=== PATIENT | female | born 1990 | race Two or more races ===

== ENCOUNTER 2016-06-03 16:02 | Inpatient (IN) | payer OTHER ==
[2016-06-03 16:55] VITALS: BMI 23.4
--- NOTE | 2016-06-03 17:40 | HP ---
COWS - Scale Resting Pulse: 1= [place] 81-100 Sweatin= Chills/Flushing Restless Observation: 3= Extraneous Movement Pupil Size: 0= Normal to Room Light Bone or Joint Aches: 2= Severe Diffuse Aches Runny Nose/ Eye Tearin= Runny Nose/Eyes GI Upset > 30mins: 2= Nausea/Diarrhea Tremor Observation: 2= Slight Tremor Visible Yawning Observation: 0= None Anxiety or Irritability: 2=Irritable/Anxious Goose Flesh Skin: 0=Smooth Skin COWS Score: 15 CIWA Score - CIWA Score Nausea/Vomitin-Mild Nausea/No Vomiting Muscle Tremors: 4-Moderate,w/Arms Extend Anxiety: 4-Mod. Anxious/Guarded Agitation: 4-Moderately Restless Paroxysmal Sweats: 1-Minimal Palms Moist Orientation: 1-Uncertain about Date Tacttile Disturbances: 0-None Auditory Disturbances: 0-None Visual Disturbances: 0-None Headache: 2-Mild CIWA-Ar Total Score: 17 Admission ROS [facility] - HPI Chief Complaint: withdrawal sx Allergies/Adverse Reactions: Allergies Allergy/AdvReac Type Severity Reaction Status Date / Time No Known Allergies Allergy Verified 06/03/16 17:02 History of Present Illness: 25 years old female with long history of alcohol heroin nicotine dependence, denies medical issue, has depression is admitted to detox patient discharged from [facility] 06/03/16, treated for alcohol intoxication, admitted to [facility] for alcohol and heroin detox, committed to rehab after detox Exam Limitations: No Limitations - Ebola screening Have you traveled outside of the country in the last 21 days: No (NN) Have you had contact with anyone from an Ebola affected area: No Have you been sick,other than usual withdrawal symptoms: No Do you have a fever: No - Review of Systems Constitutional: Chills, Loss of Appetite, Changes in sleep, Unintentional Wgt. Loss EENT: reports: No Symptoms Reported Respiratory: reports: No Symptoms reported Cardiac: reports: No Symptoms Reported GI: reports: Nausea, Poor Appetite, Poor Fluid Intake, Indigestion, Abdominal cramping : reports: No Symptoms Reported Musculoskeletal: reports: Back Pain, Joint Pain, Muscle Pain, Neck Pain Integumentary: reports: No Symptoms Reported Neuro: reports: Tremors Endocrine: reports: No Symptoms Reported Hematology: reports: No Symptoms Reported Psychiatric: reports: Judgement Intact, Anxious, Depressed Other Systems: Reviewed and Negative Patient History - Patient Medical History Hx Anemia: No Hx Asthma: No Hx Chronic Obstructive Pulmonary Disease (COPD): No Hx Cancer: No Hx Cardiac Disorders: No Hx Congestive Heart Failure: No Hx Hypertension: No Hx Hypercholesterolemia: No Hx Pacemaker: No HX Cerebrovascular Accident: No Hx Seizures: No Hx Diabetes: No Hx Gastrointestinal Disorders: No Hx Liver Disease: No Hx Genitourinary Disorders: No Hx Sexually Transmitted Disorders: No Hx Renal Disease (ESRD): No Hx Thyroid Disease: No Hx Human Immunodeficiency Virus (HIV): No Hx Hepatitis C: No Hx Depression: Yes Hx Suicide Attempt: Yes (07/2015 hang self) Hx Bipolar Disorder: No Hx Schizophrenia: No - Patient Surgical History Past Surgical History: Yes Hx Neurologic Surgery: No Hx Cataract Extraction: No Hx Cardiac Surgery: No Hx Lung Surgery: No Hx Breast Surgery: No Hx Breast Biopsy: No Hx Abdominal Surgery: No Hx Appendectomy: No Hx Cholecystectomy: No Hx Genitourinary Surgery: No Hx Section: No Hx Orthopedic Surgery: Yes (right femaur 2002) Hx Hysterectomy: No Anesthesia Reaction: No - PPD History Previous Implant?: Yes Documented Results: Negative w/o proof Implanted On Prior [facility] Admission?: No PPD to be Administered?: Yes - Reproductive History Patient is a Female of Child Bearing Age (11 -55 yrs old): Yes Last Menstrual Period: 05/25/16 Patient : No - Smoking Cessation Smoking history: Current every day smoker Have you smoked in the past 12 months: Yes Aproximately how many cigarettes per day: 10 Cigars Per Day: 0 Hx Chewing Tobacco Use: No Initiated information on smoking cessation: Yes 'Breaking Loose' booklet given: 06/03/16 - Substance & Tx. History Hx Alcohol Use: Yes Hx Substance Use: Yes Substance Use Type: Alcohol, Marijuana, Opiates Hx Substance Use Treatment: Yes - Substances Abused Alcohol Route: Oral Frequency: Daily Amount used: LIQUOR- 1 PINT, BEER- 1 SIX PACK Age of first use: 14 Date of Last Use: 06/03/16 Heroin Route: Inhalation Frequency: Daily Amount used: 7 BAGS Age of first use: 16 Date of Last Use: 06/01/16 Family Disease History - Family Disease History Family Disease History: Diabetes: Sister (pregancy) Admission Physical Exam [facility] - Vital Signs Vital Signs: Vital Signs - 24 hr 06/03/16 16:47 Temperature 98.0 F Pulse Rate 83 Respiratory 20 Rate Blood Pressure 129/73 - Physical General Appearance: Yes: Appropriately Dressed, Moderate Distress, Thin, Tremorous, Irritable, Sweating, Anxious HEENTM: Yes: Hearing grossly Normal, Normal ENT Inspection, Normocephalic, Normal Voice Respiratory: Yes: Chest Non-Tender, Lungs Clear, Normal Breath Sounds, No Respiratory Distress, No Accessory Muscle Use Neck: Yes: Supple, Trachea in good position Breast: Yes: Breasts Symetrical Cardiology: Yes: Regular Rhythm, Regular Rate, S1, S2 Abdominal: Yes: Normal Bowel Sounds, Non Tender, Soft Genitourinary: Yes: Within Normal Limits Back: Yes: Normal Inspection Musculoskeletal: Yes: full range of Motion, Gait Steady, Back pain, Muscle Pain Extremities: Yes: Normal Inspection, Normal Range of Motion, Non-Tender, Tremors Neurological: Yes: Alert, Motor Strength 5/5, Normal Response, Depressed Affect Integumentary: Yes: Warm Lymphatic: Yes: Within Normal Limits - Diagnostic (1) Alcohol dependence with uncomplicated withdrawal Current Visit: Yes Status: Acute (2) Opioid dependence with withdrawal Current Visit: Yes Status: Acute (3) Cannabis dependence, uncomplicated Current Visit: Yes Status: Chronic (4) Nicotine dependence Current Visit: Yes Status: Acute Qualifiers: Nicotine product type: cigarettes Substance use status: uncomplicated Qualified Code(s): F17.210 - Nicotine dependence, cigarettes, uncomplicated (5) Weight loss Current Visit: Yes Status: Acute (6) Vaginitis Current Visit: Yes Status: Acute Qualifiers: Chronicity: subacute Qualified Code(s): N76.1 - Subacute and chronic vaginitis Cleared for Admission [facility] - Detox or Rehab [facility] Level of Care: Medically Managed Detox Regimen/Protocol: Methadone/Librium [facility] Breath Alcohol Content Breath Alcohol Content: 0 Vital Signs - Vital Signs Vital Signs Refused: No Temperature: 98 F Temperature Source: Oral Pulse Rate: 83 Respiratory Rate: 20 Blood Pressure: 129/73 BP Location: Left Arm Blood Pressure Position: Sitting - Height Height: 5 ft 5 in - Weight Weight: 141 lb Weight Measurement Method: Standing Scale Body Mass Index (BMI): 23.4 - Bowel Function Bowel Movement: Yes Urine Pregancy Test - Result Urine Test Results: Negative- NO Line Present Urine Drug Screen - Control Is Test Valid: Yes - Results Drug Screen Negative: No Urine Drug Screen Results: THC-Marijuana, OPI-Opiates, PCP-Phencyclidine
[2016-06-03] MEDS ORDERED: MENTHOL/PHENOL 1 EACH UD MM PRN (18:05)
[2016-06-03] MEDS ORDERED: MAG HYDROX/AL HYDROX/SIMETH 30 ML UNIT-DOSE CUP PO PRN (18:05)
[2016-06-03] MEDS ORDERED: MAGNESIUM CITRATE 300 ML BOTTLE PO PRN (18:05)
[2016-06-03] MEDS ORDERED: chlordiazePOXIDE HCL 25 MG CAPSULE PO PRN (18:05)
[2016-06-03] MEDS ORDERED: LOPERAMIDE HCL 2 MG CAPSULE PO PRN (18:05)
[2016-06-03] MEDS ORDERED: guaiFENesin/D-METHORPHAN HB 10 ML UNIT-DOSE CUPS PO PRN (18:05)
[2016-06-03] MEDS ORDERED: P-EPHED 60MG/TRIPROLIDI 2.5MG TABLET PO PRN (18:05)
[2016-06-03] MEDS ORDERED: MAGNESIUM HYDROX 2400MG/30ML ORAL SUSPENSION 30 ML CUP PO PRN (18:05)
[2016-06-03] MEDS ORDERED: METHADONE HCL 10 MG TABLET (FOR DETOX USE ONLY) PO ONE ×2 (19:00→23:00)
[2016-06-03] MEDS: cloNIDine HCL 0.1 MG TABLET PO PRN (19:14)
[2016-06-03] MEDS: ACETAMINOPHEN 325 MG TABLET (FP) PO PRN (19:14)
[2016-06-03 21:15] LABS: URINE APPEARANCE CLEAR; URINE BILIRUBIN NEGATIVE (NEGATIVE); URINE BLOOD NEGATIVE (NEGATIVE); URINE COLOR AMBER; URINE GLUCOSE (UA) NEGATIVE (NEGATIVE); URINE KETONE 1+ (NEGATIVE); URINE LEUK ESTERASE NEGATIVE (NEGATIVE); URINE NITRITE NEGATIVE (NEGATIVE); URINE PROTEIN NEGATIVE (NEGATIVE); URINE UROBILINOGEN 4.0 E.U/dl E.U./dl (0.2-1.0)
[2016-06-03] MEDS: THIAMINE HCL 100 MG TABLET (FP) PO SCH (22:21)
[2016-06-03] MEDS: diphenhydrAMINE HCL 50 MG CAPSULE PO PRN (22:21)
[2016-06-03] MEDS: chlordiazePOXIDE HCL 25 MG CAPSULE PO SCH (22:21)
[2016-06-03] MEDS: metroNIDAZOLE 0.75% VAGINAL GEL 70 GM TUBE VG SCH (23:20)
[2016-06-04] MEDS: chlordiazePOXIDE HCL 25 MG CAPSULE PO SCH ×4 (05:24→22:31)
--- NOTE | 2016-06-04 09:23 | CONSULT ---
[facility] Psychiatric Consult - Data Date of interview: 06/04/16 Admission source: [facility] Identifying data: This is 25 years old female with psychiatric hospitalization history intoxicated with: Alcohol, Opioids, PCP, Cannbais and Nicotine Substance Abuse History: Smoking history: Current every day smoker. Have you smoked in the past 12 months: Yes. Aproximately how many cigarettes per day: 10. Cigars Per Day: 0. Hx Chewing Tobacco Use: No. Initiated information on smoking cessation: Yes. 'Breaking Loose' booklet given: 06/03/16. - Substance & Tx. History. Hx Alcohol Use: Yes. Hx Substance Use: Yes. Substance Use Type : Alcohol, Marijuana, Opiates. Hx Substance Use Treatment: Yes. - Substances Abused. Alcohol. Route: Oral. Frequency: Daily. Amount used: LIQUOR- 1 PINT, BEER- 1 SIX PACK. Age of first use: 14. Date of Last Use: 06/03/16. Heroin. Route: Inhalation. Frequency: Daily. Amount used: 7 BAGS. Age of first use: 16. Date of Last Use: 06/01/16 Medical History: Weight loss. Psychiatric History: Patient reports history of depression and anxiety, reports most recent psychiatric admission after OD at [facility] on 2016, reports has been under PCP Minfluence at that time. Patient reporots no medications taking prior to admission, denies no suicidal attempts since then. Physical/Sexual Abuse/Trauma History: Unclear Additional Comment: Observation. Detox Care Protocol Mental Status Exam - Mental Status Exam Alert and Oriented to: Person Cognitive Function: Fair Patient Appearance: Unkempt Mood: Sad Affect: Flat Patient Behavior: Sedated Speech Pattern: Delayed Voice Loudness: Mildly Soft/Quiet Thought Process: Circumstantial Thought Disorder: Being Controlled Hallucinations: Denies Suicidal Ideation: Denies Homicidal Ideation: Denies Insight/Judgement: Fair Sleep: Difficulty falling asleep Appetite: Weight loss Muscle strength/Tone: Mild Hypertonicity Gait/Station: Shuffling Additional Comments: Observation. Detox Care Protocol Psychiatric Findings - Problem List ([place] 1, 2,3) (1) Alcohol dependence with uncomplicated withdrawal Current Visit: Yes Status: Acute (2) Nicotine dependence Current Visit: Yes Status: Acute Qualifiers: Nicotine product type: cigarettes Substance use status: uncomplicated Qualified Code(s): F17.210 - Nicotine dependence, cigarettes, uncomplicated (3) Opioid dependence with withdrawal Current Visit: Yes Status: Acute (4) Cannabis dependence, uncomplicated Current Visit: Yes Status: Chronic (5) PCP abuse Current Visit: Yes Status: Acute (6) Drug-induced mood disorder Current Visit: Yes Status: Acute - Initial Treatment Plan Initial Treatment Plan: Observation. Detox Care Protocol
--- NOTE | 2016-06-04 09:33 | PN ---
[facility] CIWA - CIWA Score Nausea/Vomitin Muscle Tremors: 2 Anxiety: 3 Agitation: 3 Paroxysmal Sweats: 3 Orientation: 0-Oriented Tacttile Disturbances: 2-Mild Itch/Numbness/Burn Auditory Disturbances: 0-None Visual Disturbances: 0-None Headache: 1-Very Mild CIWA-Ar Total Score: 16 BHS COWS - Scale Resting Pulse: 0= [place] 80 or Below Sweatin= Chills/Flushing Restless Observation: 1= Difficult to Sit Still Pupil Size: 1= Pupils >than Normal Bone or Joint Aches: 2= Severe Diffuse Aches Runny Nose/ Eye Tearin= Nasal Congestion GI Upset > 30mins: 1= Stomach Cramp Tremor Observation of Outstretched Hands: 1= Tremor [place], Not Seen Yawning Observation: 0= None Anxiety or Irritability: 1=Feels Anxious/Irritable Goose Flesh Skin: 0=Smooth Skin COWS Score: 9 S Progress Note (SOAP) Subjective: interrupted sleep, sweats, shakes, anxious, h/o vaginitis Objective: 06/04/16 09:31 Vital Signs Temperature 97.9 F 06/04/16 06:08 Pulse Rate 55 L 06/04/16 06:08 Respiratory Rate 18 06/04/16 06:08 Blood Pressure 105/60 06/04/16 06:08 O2 Sat by Pulse Oximetry (%) Laboratory Tests 06/03/16 20:30 Urine Color Mora Urine Appearance Clear Urine pH 6.0 Ur Specific [place] 1.030 Urine Protein Negative Urine Glucose (UA) Negative Urine Ketones 1+ H Urine Blood Negative Urine Nitrite Negative Urine Bilirubin Negative Urine Urobilinogen 4.0 e.u/dl H Ur Leukocyte Esterase Negative pending labs Assessment: 06/04/16 09:32 withdrawl sx's vaginitis Plan: cont. detox increase fluids flagyl gel hs f/up pending labs
[2016-06-04] MEDS ORDERED: METHADONE HCL 10 MG TABLET (FOR DETOX USE ONLY) PO SCH (10:00)
[2016-06-04 10:24] LABS: MCH 32.2 pg (25.7-33.7); MCHC 33.9 g/dl (32.0-36.0); PLATELET COUNT 205 K/MM3 (134-434); RDW 13.8 % (11.6-15.6)
[2016-06-04 10:39] LABS: ALBUMIN 3.5 g/dl (3.4-5.0); ALK PHOS 69 U/L (45-117); ANION GAP 8 (8-16); CALCIUM 9.1 mg/dL (8.5-10.1); CO2 29 mmol/L (21-32); CREATININE 0.8 mg/dL (0.55-1.02); GLUCOSE,RANDOM 88 mg/dL (74-106); SGOT/AST 16 U/L (15-37); SGPT/ALT 31 U/L (12-78); TOT PROT 6.4 g/dl (6.4-8.2)
[2016-06-04] MEDS: PRENATAL VITAMINS W/ FOLIC ACID TABLET (FP) PO SCH (10:56)
[2016-06-04] MEDS: NICOTINE POLACRILEX 2 MG GUM BUC PRN ×2 (10:57→20:44)
[2016-06-04] MEDS: NICOTINE 14 MG/24 HOURS TOPICAL PATCH TD SCH (10:58)
[2016-06-04] MEDS: IBUPROFEN 400 MG TABLET (FP) PO PRN (12:28)
[2016-06-04 13:32] LABS: HIV 1 & 2 AB NEGATIVE; HIV 1 AGp24 NEGATIVE
[2016-06-04] MEDS: ACETAMINOPHEN 325 MG TABLET (FP) PO PRN (18:30)
[2016-06-04] MEDS: metroNIDAZOLE 0.75% VAGINAL GEL 70 GM TUBE VG SCH (22:31)
[2016-06-04] MEDS: diphenhydrAMINE HCL 50 MG CAPSULE PO PRN (22:31)
[2016-06-04] MEDS: THIAMINE HCL 100 MG TABLET (FP) PO SCH (22:32)
[2016-06-05] MEDS: chlordiazePOXIDE HCL 25 MG CAPSULE PO SCH ×3 (05:30→17:50)
[2016-06-05] MEDS: ACETAMINOPHEN 325 MG TABLET (FP) PO PRN (08:43)
[2016-06-05] MEDS: METHADONE HCL 5 MG TABLET (FOR DETOX USE ONLY) PO SCH (10:28)
[2016-06-05] MEDS: PRENATAL VITAMINS W/ FOLIC ACID TABLET (FP) PO SCH (10:28)
[2016-06-05] MEDS: NICOTINE 14 MG/24 HOURS TOPICAL PATCH TD SCH (10:30)
--- NOTE | 2016-06-05 10:59 | PN ---
[facility] CIWA - CIWA Score Nausea/Vomitin-No Nausea/No Vomiting Muscle Tremors: 4-Moderate,w/Arms Extend Anxiety: 3 Agitation: 4-Moderately Restless Paroxysmal Sweats: 3 Orientation: 0-Oriented Tacttile Disturbances: 0-None Auditory Disturbances: 0-None Visual Disturbances: 0-None Headache: 0-None Present CIWA-Ar Total Score: 14 S COWS - Scale Resting Pulse: 1= [place] 81-100 Sweatin=Flushed/Facial Moisture Restless Observation: 1= Difficult to Sit Still Pupil Size: 0= Normal to Room Light Bone or Joint Aches: 1= Mild Discomfort Runny Nose/ Eye Tearin= Nasal Congestion GI Upset > 30mins: 0= None Tremor Observation of Outstretched Hands: 2= Slight Tremor Visible Yawning Observation: 0= None Anxiety or Irritability: 2=Irritable/Anxious Goose Flesh Skin: 0=Smooth Skin COWS Score: 10 S Progress Note (SOAP) Subjective: restless legs sweats shakes interrupted sleep agitation Objective: 06/05/16 10:58 Vital Signs Temperature 98.2 F 06/05/16 10:42 Pulse Rate 97 H 06/05/16 10:42 Respiratory Rate 16 06/05/16 10:42 Blood Pressure 128/61 06/05/16 10:42 O2 Sat by Pulse Oximetry (%) Laboratory Tests 06/03/16 06/04/16 06/04/16 20:30 07:50 07:50 WBC RBC Hgb Hct MCV MCHC RDW Plt Count MPV Sodium 140 Potassium 3.6 Chloride 103 Carbon Dioxide 29 Anion Gap 8 BUN 11 Creatinine 0.8 Creat Clearance w eGFR > 60 Random Glucose 88 Calcium 9.1 Total Bilirubin 1.0 AST 16 ALT 31 Alkaline Phosphatase 69 Total Protein 6.4 Albumin 3.5 Urine Color Mora Urine Appearance Clear Urine pH 6.0 Ur Specific [place] 1.030 Urine Protein Negative Urine Glucose (UA) Negative Urine Ketones 1+ H Urine Blood Negative Urine Nitrite Negative Urine Bilirubin Negative Urine Urobilinogen 4.0 e.u/dl H Ur Leukocyte Esterase Negative RPR Titer HIV 1&2 Antibody Screen Negative HIV P24 Antigen Negative 06/04/16 06/04/16 07:50 08:00 WBC 7.0 RBC 4.21 Hgb 13.6 Hct 40.0 MCV 95.0 MCHC 33.9 RDW 13.8 Plt Count 205 MPV 10.0 Sodium Potassium Chloride Carbon Dioxide Anion Gap BUN Creatinine Creat Clearance w eGFR Random Glucose Calcium Total Bilirubin AST ALT Alkaline Phosphatase Total Protein Albumin Urine Color Urine Appearance Urine pH Ur Specific [place] Urine Protein Urine Glucose (UA) Urine Ketones Urine Blood Urine Nitrite Urine Bilirubin Urine Urobilinogen Ur Leukocyte Esterase RPR Titer Nonreactive HIV 1&2 Antibody Screen HIV P24 Antigen awake/alert ambulating no acute distress Assessment: 06/05/16 10:58 withdrawal sx Plan: continue detox increase fluids flexiril 10mg prn
[2016-06-05] MEDS: CYCLOBENZAPRINE HCL 10 MG TABLET (FP) PO PRN ×2 (13:27→22:18)
[2016-06-05] MEDS: NICOTINE POLACRILEX 2 MG GUM BUC PRN (13:27)
[2016-06-05] MEDS: diphenhydrAMINE HCL 50 MG CAPSULE PO PRN (22:18)
[2016-06-05] MEDS: chlordiazePOXIDE 5 MG CAPSULE PO SCH (22:18)
[2016-06-05] MEDS: metroNIDAZOLE 0.75% VAGINAL GEL 70 GM TUBE VG SCH (22:19)
[2016-06-05] MEDS: THIAMINE HCL 100 MG TABLET (FP) PO SCH (22:19)
[2016-06-06] MEDS: chlordiazePOXIDE 5 MG CAPSULE PO SCH ×3 (05:49→16:48)
[2016-06-06] MEDS: PRENATAL VITAMINS W/ FOLIC ACID TABLET (FP) PO SCH (10:02)
[2016-06-06] MEDS: NICOTINE 14 MG/24 HOURS TOPICAL PATCH TD SCH (10:02)
[2016-06-06] MEDS: METHADONE HCL 5 MG TABLET (FOR DETOX USE ONLY) PO SCH (10:02)
[2016-06-06] MEDS: IBUPROFEN 400 MG TABLET (FP) PO PRN (10:03)
[2016-06-06] MEDS: NICOTINE POLACRILEX 2 MG GUM BUC PRN ×2 (10:06→12:54)
--- NOTE | 2016-06-06 11:12 | PN ---
[facility] Progress Note (SOAP) Subjective: feeling better some interrupted sleep Objective: 06/06/16 11:10 Vital Signs Temperature 98.2 F 06/06/16 10:10 Pulse Rate 113 H 06/06/16 10:10 Respiratory Rate 18 06/06/16 10:10 Blood Pressure 116/74 06/06/16 10:10 O2 Sat by Pulse Oximetry (%) Laboratory Tests 06/03/16 06/04/16 06/04/16 20:30 07:50 07:50 WBC RBC Hgb Hct MCV MCHC RDW Plt Count MPV Sodium 140 Potassium 3.6 Chloride 103 Carbon Dioxide 29 Anion Gap 8 BUN 11 Creatinine 0.8 Creat Clearance w eGFR > 60 Random Glucose 88 Calcium 9.1 Total Bilirubin 1.0 AST 16 ALT 31 Alkaline Phosphatase 69 Total Protein 6.4 Albumin 3.5 Urine Color Mora Urine Appearance Clear Urine pH 6.0 Ur Specific [place] 1.030 Urine Protein Negative Urine Glucose (UA) Negative Urine Ketones 1+ H Urine Blood Negative Urine Nitrite Negative Urine Bilirubin Negative Urine Urobilinogen 4.0 e.u/dl H Ur Leukocyte Esterase Negative RPR Titer HIV 1&2 Antibody Screen Negative HIV P24 Antigen Negative 06/04/16 06/04/16 07:50 08:00 WBC 7.0 RBC 4.21 Hgb 13.6 Hct 40.0 MCV 95.0 MCHC 33.9 RDW 13.8 Plt Count 205 MPV 10.0 Sodium Potassium Chloride Carbon Dioxide Anion Gap BUN Creatinine Creat Clearance w eGFR Random Glucose Calcium Total Bilirubin AST ALT Alkaline Phosphatase Total Protein Albumin Urine Color Urine Appearance Urine pH Ur Specific [place] Urine Protein Urine Glucose (UA) Urine Ketones Urine Blood Urine Nitrite Urine Bilirubin Urine Urobilinogen Ur Leukocyte Esterase RPR Titer Nonreactive HIV 1&2 Antibody Screen HIV P24 Antigen pt aox3 in nad ambulating Assessment: 06/06/16 11:11 withdrawl sx's Plan: cont. detox increase fluids
[2016-06-06] MEDS: CYCLOBENZAPRINE HCL 10 MG TABLET (FP) PO PRN ×2 (12:54→22:35)
[2016-06-06] MEDS: diphenhydrAMINE HCL 50 MG CAPSULE PO PRN (22:35)
[2016-06-06] MEDS: cloNIDine HCL 0.1 MG TABLET PO PRN (22:35)
[2016-06-06] MEDS: THIAMINE HCL 100 MG TABLET (FP) PO SCH (22:35)
[2016-06-06] MEDS: chlordiazePOXIDE HCL 10 MG CAPSULE PO SCH (22:35)
[2016-06-06] MEDS: metroNIDAZOLE 0.75% VAGINAL GEL 70 GM TUBE VG SCH (22:39)
[2016-06-07] MEDS: chlordiazePOXIDE HCL 10 MG CAPSULE PO SCH ×3 (05:26→17:25)
[2016-06-07] MEDS: CYCLOBENZAPRINE HCL 10 MG TABLET (FP) PO PRN ×3 (05:28→22:30)
--- NOTE | 2016-06-07 08:54 | PN ---
S Progress Note (SOAP) Subjective: alert,irritable,anxious,interrupted sleep Objective: 06/07/16 08:53 Vital Signs Temperature 97.7 F 06/07/16 06:00 Pulse Rate 70 06/07/16 06:00 Respiratory Rate 18 06/07/16 06:00 Blood Pressure 106/58 06/07/16 06:00 O2 Sat by Pulse Oximetry (%) Assessment: 06/07/16 08:53 withdrawal symptom Plan: continue detox,discharge in am to rehab
[2016-06-07] MEDS ORDERED: METHADONE HCL 10 MG TABLET (FOR DETOX USE ONLY) PO SCH (10:00)
[2016-06-07] MEDS: NICOTINE 14 MG/24 HOURS TOPICAL PATCH TD SCH (11:09)
[2016-06-07] MEDS: PRENATAL VITAMINS W/ FOLIC ACID TABLET (FP) PO SCH (11:10)
[2016-06-07] MEDS: NICOTINE POLACRILEX 2 MG GUM BUC PRN (11:17)
[2016-06-07] MEDS: diphenhydrAMINE HCL 50 MG CAPSULE PO PRN (22:29)
[2016-06-07] MEDS: THIAMINE HCL 100 MG TABLET (FP) PO SCH (22:30)
[2016-06-07] MEDS: metroNIDAZOLE 0.75% VAGINAL GEL 70 GM TUBE VG SCH (22:30)
[2016-06-08] MEDS: CYCLOBENZAPRINE HCL 10 MG TABLET (FP) PO PRN (05:49)
[2016-06-08] MEDS ORDERED: METHADONE HCL 5 MG TABLET (FOR DETOX USE ONLY) PO SCH (06:00)
[2016-06-08] MEDS: NICOTINE 14 MG/24 HOURS TOPICAL PATCH TD SCH (10:19)
[2016-06-08] MEDS: PRENATAL VITAMINS W/ FOLIC ACID TABLET (FP) PO SCH (10:19)
[2016-06-08] MEDS: NICOTINE POLACRILEX 2 MG GUM BUC PRN (10:22)
[2016-06-08 10:31] VITALS: BP 124/62; PULSE 104; TEMP 97.5
--- NOTE | 2016-06-08 11:17 | DS ---
[facility] Detox Discharge Summary Admission Date: 06/03/16 Discharge Date: 06/08/16 - History Present History: Alcohol Dependence, Cannabis Dependence, Opioid Dependence, Pcp Dependence Pertinent Past History: DENIES - Physical Exam Results Vital Signs: Vital Signs Temperature 97.5 F L 06/08/16 10:00 Pulse Rate 104 H 06/08/16 10:00 Respiratory Rate 18 06/08/16 10:00 Blood Pressure 124/62 06/08/16 10:00 O2 Sat by Pulse Oximetry (%) Pertinent Admission Physical Exam Findings: WITHDRAWAL SX. Laboratory Last Values WBC 7.0 K/mm3 (4.0-10.0) 06/04/16 08:00 RBC 4.21 M/mm3 (3.60-5.2) 06/04/16 08:00 Hgb 13.6 GM/dL (10.7-15.3) 06/04/16 08:00 Hct 40.0 % (32.4-45.2) 06/04/16 08:00 MCV 95.0 fl (80-96) 06/04/16 08:00 MCHC 33.9 g/dl (32.0-36.0) 06/04/16 08:00 RDW 13.8 % (11.6-15.6) 06/04/16 08:00 Plt Count 205 K/MM3 (134-434) 06/04/16 08:00 MPV 10.0 fl (7.5-11.1) 06/04/16 08:00 Sodium 140 mmol/L (136-145) 06/04/16 07:50 Potassium 3.6 mmol/L (3.5-5.1) 06/04/16 07:50 Chloride 103 mmol/L (98-107) 06/04/16 07:50 Carbon Dioxide 29 mmol/L (21-32) 06/04/16 07:50 Anion Gap 8 (8-16) 06/04/16 07:50 BUN 11 mg/dL (7-18) 06/04/16 07:50 Creatinine 0.8 mg/dL (0.55-1.02) 06/04/16 07:50 Creat Clearance w eGFR > 60 (>60) 06/04/16 07:50 Random Glucose 88 mg/dL (74-106) 06/04/16 07:50 Calcium 9.1 mg/dL (8.5-10.1) 06/04/16 07:50 Total Bilirubin 1.0 mg/dL (0.2-1.0) 06/04/16 07:50 AST 16 U/L (15-37) 06/04/16 07:50 ALT 31 U/L (12-78) 06/04/16 07:50 Alkaline Phosphatase 69 U/L (45-117) 06/04/16 07:50 Total Protein 6.4 g/dl (6.4-8.2) 06/04/16 07:50 Albumin 3.5 g/dl (3.4-5.0) 06/04/16 07:50 Urine Color Mora 06/03/16 20:30 Urine Appearance Clear 06/03/16 20:30 Urine pH 6.0 (5.0-8.0) 06/03/16 20:30 Ur Specific [place] 1.030 (1.001-1.035) 06/03/16 20:30 Urine Protein Negative (NEGATIVE) 06/03/16 20:30 Urine Glucose (UA) Negative (NEGATIVE) 06/03/16 20:30 Urine Ketones 1+ (NEGATIVE) H 06/03/16 20:30 Urine Blood Negative (NEGATIVE) 06/03/16 20:30 Urine Nitrite Negative (NEGATIVE) 06/03/16 20:30 Urine Bilirubin Negative (NEGATIVE) 06/03/16 20:30 Urine Urobilinogen 4.0 e.u/dl E.U./dl (0.2-1.0) H 06/03/16 20:30 Ur Leukocyte Esterase Negative (NEGATIVE) 06/03/16 20:30 RPR Titer Nonreactive (NONREACTIVE) 06/04/16 07:50 HIV 1&2 Antibody Screen Negative 06/04/16 07:50 HIV P24 Antigen Negative 06/04/16 07:50 LABS NOTED - Treatment Hospital Course: Detox Protocol Followed, Detoxed Safely, Responded well, Discharged Condition Good, Rehab Referral Accepted - Medication Discharge Medications: Ambulatory Orders NK [No Known Home Medication] 06/03/16 - Diagnosis (1) Alcohol dependence with uncomplicated withdrawal Current Visit: Yes Status: Acute (2) Drug-induced mood disorder Current Visit: Yes Status: Acute (3) Nicotine dependence Current Visit: Yes Status: Acute Qualifiers: Nicotine product type: cigarettes Substance use status: uncomplicated Qualified Code(s): F17.210 - Nicotine dependence, cigarettes, uncomplicated (4) Opioid dependence with withdrawal Current Visit: Yes Status: Acute (5) PCP abuse Current Visit: Yes Status: Acute (6) Cannabis dependence, uncomplicated Current Visit: Yes Status: Chronic - AMA Did Patient Leave Against Medical Advice: No
== END 2016-06-08 12:35 | disposition other institution (70) | DRG 773 ==
LOC: YASAS 16:02 → Y6N 18:29
PROVIDERS: ADMIT Internal Medicine Addiction Medicine; ATTEND Internal Medicine Addiction Medicine
PROC: HZ2ZZZZ Detoxification Services for Substance Abuse Treatment (ICD-10-PCS; principal; 2016-06-03)
DX: F11.23 Opioid dependence with withdrawal (principal); F10.230 Alcohol dependence with withdrawal, uncomplicated; F12.20 Cannabis dependence, uncomplicated; F16.10 Hallucinogen abuse, uncomplicated; F17.210 Nicotine dependence, cigarettes, uncomplicated; F19.24 Other psychoactive substance dependence with psychoactive substance-induced mood disorder; N76.1 Subacute and chronic vaginitis; Z87.898 Personal history of other specified conditions; Z91.5 Personal history of self-harm
CPT/HCPCS: 36415; 80053; 81003; 85027; 86593; 87389; 93005; 93010

== ENCOUNTER 2016-06-08 12:33 | Inpatient (IN) | payer OTHER ==
[2016-06-08 14:39] VITALS: BMI 26.2
[2016-06-08] MEDS ORDERED: LOPERAMIDE HCL 2 MG CAPSULE PO PRN (15:50)
[2016-06-08] MEDS ORDERED: guaiFENesin/D-METHORPHAN HB 10 ML UNIT-DOSE CUPS PO PRN (15:50)
[2016-06-08] MEDS ORDERED: MAGNESIUM CITRATE 300 ML BOTTLE PO PRN (15:50)
[2016-06-08] MEDS ORDERED: MAG HYDROX/AL HYDROX/SIMETH 30 ML UNIT-DOSE CUP PO PRN (15:50)
[2016-06-08] MEDS ORDERED: MENTHOL/PHENOL 1 EACH UD MM PRN (15:50)
[2016-06-08] MEDS ORDERED: MAGNESIUM HYDROX 2400MG/30ML ORAL SUSPENSION 30 ML CUP PO PRN (15:50)
--- NOTE | 2016-06-08 15:50 | HP ---
[facility] Rehab Assess/Revision - Admission History Admitted to Rehab from: [facility] Date of Admission to Rehab: 06/08/16 - Vital signs Vital Signs: Vital Signs Period Temp Pulse Resp BP Sys/Ramos Pulse Ox Last 24 Hr 98.5 F-98.5 F 100-100 16-16 116-116/71-71 - Findings Detox History & Physical reviewed: Yes Concur with findings: Yes
[2016-06-08] MEDS: THIAMINE HCL 100 MG TABLET (FP) PO SCH (21:41)
[2016-06-08] MEDS: diphenhydrAMINE HCL 50 MG CAPSULE PO PRN (21:41)
[2016-06-08] MEDS: metroNIDAZOLE 0.75% VAGINAL GEL 70 GM TUBE VG SCH (21:42)
[2016-06-09] MEDS: PRENATAL VITAMINS W/ FOLIC ACID TABLET (FP) PO SCH (10:41)
[2016-06-09] MEDS: NICOTINE 21 MG/24 HOURS TOPICAL PATCH TD SCH (10:42)
[2016-06-09] MEDS: metroNIDAZOLE 0.75% VAGINAL GEL 70 GM TUBE VG SCH (21:48)
[2016-06-09] MEDS: THIAMINE HCL 100 MG TABLET (FP) PO SCH (21:48)
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
[2016-06-10] MEDS: PRENATAL VITAMINS W/ FOLIC ACID TABLET (FP) PO SCH (11:07)
[2016-06-10] MEDS: NICOTINE 21 MG/24 HOURS TOPICAL PATCH TD SCH (11:08)
[2016-06-10] MEDS ORDERED: NICOTINE 14 MG/24 HOURS TOPICAL PATCH TD ONE (11:45)
[2016-06-10] MEDS: THIAMINE HCL 100 MG TABLET (FP) PO SCH (21:44)
[2016-06-10] MEDS: diphenhydrAMINE HCL 50 MG CAPSULE PO PRN (21:44)
--- NOTE | 2016-06-11 10:00 | PN ---
Psychiatric Progress Note Vital Signs: Vital Signs Period Temp Pulse Resp BP Sys/Ramos Pulse Ox Last 24 Hr 97.6 F 82 18-18 119/79 Date of Session: 06/11/16 Chief Complaint:: Panda very nervious. HPI: Patient addressed PCP,Cocaine dependence comorbid with Substance induced mood disorder. Current Medications: Active Medications Generic Name Dose Route Start Last Admin Trade Name Freq PRN Reason Stop Dose Admin Acetaminophen 650 mg 06/08/16 15:50 Tylenol - PO Q4H PRN FEVER OR PAIN Al Hydroxide/Mg Hydroxide 30 ml 06/08/16 15:50 Mylanta Oral Suspension - PO Q6H PRN DYSPEPSIA Diphenhydramine HCl 50 mg 06/08/16 15:50 06/10/16 21:44 Benadryl - PO 50 mg HSMR1 PRN Administration FOR ITCHING Eucalyptus/Menthol/Phenol/Sorbitol 1 each 06/08/16 15:50 Cepastat Lozenge - MM Q4H PRN SORE THROAT Guaifenesin 10 ml 06/08/16 15:50 Robitussin Dm - PO Q6H PRN COUGH Hydroxyzine Pamoate 50 mg 06/11/16 09:48 Vistaril - PO Q4H PRN ANXIETY Ibuprofen 400 mg 06/08/16 15:50 Motrin - PO Q6H PRN PAIN Loperamide HCl 4 mg 06/08/16 15:50 Imodium - PO Q6H PRN DIARRHEA Magnesium Hydroxide 30 ml 06/08/16 15:50 Milk Of Magnesia - PO DAILY PRN CONSTIPATION Nicotine 14 mg 06/10/16 11:24 Nicoderm Patch - TD DAILY ISABEL Nicotine Polacrilex 2 mg 06/08/16 15:50 Nicorette Gum - BUC Q2H PRN NICOTINE REPLACEMENT RX Multivit/Folic Acid/Iron 1 tab 06/09/16 10:00 06/10/16 11:07 Vitamins (Sjr) - PO 1 tab DAILY ISABEL Administration Pseudoephedrine/Triprolidine 1 combo 06/08/16 15:50 Actifed - PO TID PRN NASAL CONGESTION Thiamine HCl 100 mg 06/08/16 22:00 06/10/16 21:44 Vitamin B1 - PO 100 mg HS ISABEL Administration Current Side Effect: No Lab tests ordered: No Lab tests reviewed: Yes Provider note:: Patient was evaluated today due to ongoing sleeping problems, anxiety.Chart has been revuewed ,medications has been discussed as well as treatment plan.Properties of Vistaril has been discussed with the patient including side effects,benefits and dose adjustment.Supportive therapy has been provided. Vistaril 50 mg po g 4 hrs PRN for anxiety ordered. Total face to face time:: 30 Mental Status Exam - Mental Status Exam Alert and Oriented to: Time, Place, Person Cognitive Function: Grossly Intact Patient Appearance: Well Groomed Mood: Anxious Affect: Labile Patient Behavior: Cooperative Speech Pattern: Clear Voice Loudness: Normal Thought Process: Goal Oriented Thought Disorder: Not Present Hallucinations: Denies Suicidal Ideation: Denies Homicidal Ideation: Denies Insight/Judgement: Fair Sleep: Fair Appetite: Good Muscle strength/Tone: Normal Gait/Station: Normal Psychiatric Treatment Plan - Problem List (1) Cocaine abuse Current Visit: Yes (2) Opioid dependence Current Visit: Yes (3) Phencyclidine dependence Current Visit: Yes (4) Substance induced mood disorder Current Visit: Yes (5) Drug-induced mood disorder
[2016-06-11] MEDS: NICOTINE 14 MG/24 HOURS TOPICAL PATCH TD SCH (10:52)
[2016-06-11] MEDS: PRENATAL VITAMINS W/ FOLIC ACID TABLET (FP) PO SCH (10:52)
[2016-06-11] MEDS: hydrOXYzine PAMOATE 50 MG CAPSULE (FP) PO PRN ×2 (10:52→15:50)
[2016-06-11] MEDS: NICOTINE POLACRILEX 2 MG GUM BUC PRN ×2 (10:53→15:51)
[2016-06-11] MEDS: THIAMINE HCL 100 MG TABLET (FP) PO SCH (21:37)
[2016-06-11] MEDS: diphenhydrAMINE HCL 50 MG CAPSULE PO PRN (21:37)
[2016-06-12] MEDS: PRENATAL VITAMINS W/ FOLIC ACID TABLET (FP) PO SCH (11:18)
[2016-06-12] MEDS: NICOTINE 14 MG/24 HOURS TOPICAL PATCH TD SCH (11:18)
[2016-06-12] MEDS: hydrOXYzine PAMOATE 50 MG CAPSULE (FP) PO PRN (11:20)
[2016-06-12] MEDS: THIAMINE HCL 100 MG TABLET (FP) PO SCH (22:23)
[2016-06-12] MEDS: diphenhydrAMINE HCL 50 MG CAPSULE PO PRN (22:23)
[2016-06-13] MEDS: hydrOXYzine PAMOATE 50 MG CAPSULE (FP) PO PRN ×2 (09:36→18:00)
[2016-06-13] MEDS: PRENATAL VITAMINS W/ FOLIC ACID TABLET (FP) PO SCH (09:36)
[2016-06-13] MEDS: ACETAMINOPHEN 325 MG TABLET (FP) PO PRN (09:37)
[2016-06-13] MEDS: NICOTINE 14 MG/24 HOURS TOPICAL PATCH TD SCH (09:37)
[2016-06-13] MEDS: IBUPROFEN 400 MG TABLET (FP) PO PRN (20:35)
[2016-06-13] MEDS: diphenhydrAMINE HCL 50 MG CAPSULE PO PRN (21:00)
[2016-06-13] MEDS: THIAMINE HCL 100 MG TABLET (FP) PO SCH (21:00)
[2016-06-14] MEDS: PRENATAL VITAMINS W/ FOLIC ACID TABLET (FP) PO SCH (09:28)
[2016-06-14] MEDS: NICOTINE 14 MG/24 HOURS TOPICAL PATCH TD SCH (09:28)
[2016-06-14] MEDS: hydrOXYzine PAMOATE 50 MG CAPSULE (FP) PO PRN ×2 (09:29→15:37)
[2016-06-14] MEDS: IBUPROFEN 400 MG TABLET (FP) PO PRN ×2 (09:29→15:37)
[2016-06-14] MEDS: diphenhydrAMINE HCL 50 MG CAPSULE PO PRN (22:15)
[2016-06-14] MEDS: THIAMINE HCL 100 MG TABLET (FP) PO SCH (22:15)
[2016-06-15] MEDS: PRENATAL VITAMINS W/ FOLIC ACID TABLET (FP) PO SCH (09:02)
[2016-06-15] MEDS: hydrOXYzine PAMOATE 50 MG CAPSULE (FP) PO PRN (09:02)
[2016-06-15] MEDS: IBUPROFEN 400 MG TABLET (FP) PO PRN ×2 (09:02→22:01)
[2016-06-15] MEDS: P-EPHED 60MG/TRIPROLIDI 2.5MG TABLET PO PRN (09:02)
[2016-06-15] MEDS: NICOTINE 14 MG/24 HOURS TOPICAL PATCH TD SCH (09:24)
[2016-06-15] MEDS: THIAMINE HCL 100 MG TABLET (FP) PO SCH (22:02)
[2016-06-15] MEDS: diphenhydrAMINE HCL 50 MG CAPSULE PO PRN (22:02)
[2016-06-16] MEDS: P-EPHED 60MG/TRIPROLIDI 2.5MG TABLET PO PRN (08:33)
[2016-06-16] MEDS: hydrOXYzine PAMOATE 50 MG CAPSULE (FP) PO PRN (08:33)
[2016-06-16] MEDS: IBUPROFEN 400 MG TABLET (FP) PO PRN (08:33)
[2016-06-16] MEDS: NICOTINE 14 MG/24 HOURS TOPICAL PATCH TD SCH (10:42)
[2016-06-16] MEDS: PRENATAL VITAMINS W/ FOLIC ACID TABLET (FP) PO SCH (10:45)
[2016-06-16] MEDS: NICOTINE POLACRILEX 2 MG GUM BUC PRN (10:47)
[2016-06-16] MEDS: LIDOCAINE 5% TOPICAL PATCH TP SCH (15:33)
[2016-06-16] MEDS: THIAMINE HCL 100 MG TABLET (FP) PO SCH (21:47)
[2016-06-16] MEDS: diphenhydrAMINE HCL 50 MG CAPSULE PO PRN (21:47)
[2016-06-16] MEDS: ACETAMINOPHEN 325 MG TABLET (FP) PO PRN (21:48)
[2016-06-17] MEDS: NICOTINE 14 MG/24 HOURS TOPICAL PATCH TD SCH (10:52)
[2016-06-17] MEDS: PRENATAL VITAMINS W/ FOLIC ACID TABLET (FP) PO SCH (10:54)
[2016-06-17] MEDS: LIDOCAINE 5% TOPICAL PATCH TP SCH (10:54)
[2016-06-17] MEDS: diphenhydrAMINE HCL 50 MG CAPSULE PO PRN (21:58)
[2016-06-17] MEDS: THIAMINE HCL 100 MG TABLET (FP) PO SCH (21:58)
[2016-06-17] MEDS: IBUPROFEN 400 MG TABLET (FP) PO PRN (21:59)
[2016-06-18] MEDS: LIDOCAINE 5% TOPICAL PATCH TP SCH (10:38)
[2016-06-18] MEDS: NICOTINE 14 MG/24 HOURS TOPICAL PATCH TD SCH (10:39)
[2016-06-18] MEDS: PRENATAL VITAMINS W/ FOLIC ACID TABLET (FP) PO SCH (10:39)
[2016-06-18] MEDS: NICOTINE POLACRILEX 2 MG GUM BUC PRN (10:40)
[2016-06-18] MEDS: hydrOXYzine PAMOATE 50 MG CAPSULE (FP) PO PRN (10:40)
[2016-06-18] MEDS: THIAMINE HCL 100 MG TABLET (FP) PO SCH (21:56)
[2016-06-18] MEDS: diphenhydrAMINE HCL 50 MG CAPSULE PO PRN (21:56)
[2016-06-18] MEDS: IBUPROFEN 400 MG TABLET (FP) PO PRN (21:56)
[2016-06-19] MEDS: LIDOCAINE 5% TOPICAL PATCH TP SCH (10:38)
[2016-06-19] MEDS: PRENATAL VITAMINS W/ FOLIC ACID TABLET (FP) PO SCH (10:39)
[2016-06-19] MEDS: NICOTINE 14 MG/24 HOURS TOPICAL PATCH TD SCH (10:39)
[2016-06-19] MEDS: hydrOXYzine PAMOATE 50 MG CAPSULE (FP) PO PRN (17:42)
[2016-06-19] MEDS: NICOTINE POLACRILEX 2 MG GUM BUC PRN (17:43)
[2016-06-19] MEDS: diphenhydrAMINE HCL 50 MG CAPSULE PO PRN (21:30)
[2016-06-19] MEDS: ACETAMINOPHEN 325 MG TABLET (FP) PO PRN (21:30)
[2016-06-19] MEDS: THIAMINE HCL 100 MG TABLET (FP) PO SCH (21:31)
[2016-06-20] MEDS: NICOTINE 14 MG/24 HOURS TOPICAL PATCH TD SCH (10:56)
[2016-06-20] MEDS: PRENATAL VITAMINS W/ FOLIC ACID TABLET (FP) PO SCH (10:56)
[2016-06-20] MEDS: LIDOCAINE 5% TOPICAL PATCH TP SCH ×2 (10:57→18:50)
[2016-06-20] MEDS: NICOTINE POLACRILEX 2 MG GUM BUC PRN (11:00)
[2016-06-20] MEDS: hydrOXYzine PAMOATE 50 MG CAPSULE (FP) PO PRN (11:00)
[2016-06-20] MEDS: THIAMINE HCL 100 MG TABLET (FP) PO SCH (21:55)
[2016-06-20] MEDS: diphenhydrAMINE HCL 50 MG CAPSULE PO PRN (21:55)
[2016-06-20] MEDS: IBUPROFEN 400 MG TABLET (FP) PO PRN (21:56)
[2016-06-21] MEDS: LIDOCAINE 5% TOPICAL PATCH TP SCH (10:27)
[2016-06-21] MEDS: PRENATAL VITAMINS W/ FOLIC ACID TABLET (FP) PO SCH (10:27)
[2016-06-21] MEDS: NICOTINE 14 MG/24 HOURS TOPICAL PATCH TD SCH (10:28)
[2016-06-21] MEDS: hydrOXYzine PAMOATE 50 MG CAPSULE (FP) PO PRN ×2 (10:29→19:47)
[2016-06-21] MEDS: diphenhydrAMINE HCL 50 MG CAPSULE PO PRN (21:51)
[2016-06-21] MEDS: THIAMINE HCL 100 MG TABLET (FP) PO SCH (21:51)
[2016-06-21] MEDS: ACETAMINOPHEN 325 MG TABLET (FP) PO PRN (21:51)
[2016-06-22] MEDS: PRENATAL VITAMINS W/ FOLIC ACID TABLET (FP) PO SCH (10:36)
[2016-06-22] MEDS: LIDOCAINE 5% TOPICAL PATCH TP SCH (10:36)
[2016-06-22] MEDS: NICOTINE 14 MG/24 HOURS TOPICAL PATCH TD SCH (10:37)
[2016-06-22] MEDS: diphenhydrAMINE HCL 50 MG CAPSULE PO PRN (21:48)
[2016-06-22] MEDS: THIAMINE HCL 100 MG TABLET (FP) PO SCH (21:49)
[2016-06-23] MEDS: PRENATAL VITAMINS W/ FOLIC ACID TABLET (FP) PO SCH (10:50)
[2016-06-23] MEDS: LIDOCAINE 5% TOPICAL PATCH TP SCH (10:50)
[2016-06-23] MEDS: NICOTINE 14 MG/24 HOURS TOPICAL PATCH TD SCH (10:52)
[2016-06-23] MEDS: diphenhydrAMINE HCL 50 MG CAPSULE PO PRN (22:05)
[2016-06-23] MEDS: THIAMINE HCL 100 MG TABLET (FP) PO SCH (22:05)
[2016-06-24] MEDS: LIDOCAINE 5% TOPICAL PATCH TP SCH (10:53)
[2016-06-24] MEDS: NICOTINE 14 MG/24 HOURS TOPICAL PATCH TD SCH (10:54)
[2016-06-24] MEDS: PRENATAL VITAMINS W/ FOLIC ACID TABLET (FP) PO SCH (10:54)
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
[2016-06-24] MEDS: THIAMINE HCL 100 MG TABLET (FP) PO SCH (23:18)
[2016-06-24 23:34] VITALS: BP 123/74; PULSE 91; TEMP 98.1
== END 2016-06-24 23:59 | disposition home or self-care (01) | DRG 772 ==
LOC: YASAS 12:33 → Y3E 12:34
PROVIDERS: ADMIT Psychiatry & Neurology Psychiatry; ATTEND Psychiatry & Neurology Psychiatry
PROC: HZ42ZZZ Group Counseling for Substance Abuse Treatment, Cognitive-Behavioral (ICD-10-PCS; principal; 2016-06-08)
DX: F11.20 Opioid dependence, uncomplicated (principal); F10.20 Alcohol dependence, uncomplicated; F16.20 Hallucinogen dependence, uncomplicated; F14.10 Cocaine abuse, uncomplicated; F17.210 Nicotine dependence, cigarettes, uncomplicated; F19.24 Other psychoactive substance dependence with psychoactive substance-induced mood disorder; Z91.5 Personal history of self-harm; Y04.0XXA Assault by unarmed brawl or fight, initial encounter; Y93.89 Activity, other specified; Y92.230 Patient room in hospital as the place of occurrence of the external cause

== ENCOUNTER 2018-12-26 17:59 | Inpatient (IN) | payer OTHER ==
[2018-12-26 19:36] VITALS: BMI 23.4
--- NOTE | 2018-12-26 20:33 | HP ---
COWS - Scale Resting Pulse: 0= [place] 80 or Below Sweatin=Flushed/Facial Moisture Restless Observation: 0= Sits Still Pupil Size: 0= Normal to Room Light Bone or Joint Aches: 4=Acute Joint/Muscle Pain Runny Nose/ Eye Tearin= Runny Nose/Eyes GI Upset > 30mins: 1= Stomach Cramp Tremor Observation: 2= Slight Tremor Visible Yawning Observation: 1= 1-2x During Session Anxiety or Irritability: 2=Irritable/Anxious Goose Flesh Skin: 3=Piloerection COWS Score: 17 CIWA Score Nausea/Vomitin Muscle Tremors: 3 Anxiety: 4-Mod. Anxious/Guarded Agitation: 0-Normal Activity Paroxysmal Sweats: 3 Orientation: 0-Oriented Tacttile Disturbances: 0-None Auditory Disturbances: 0-None Visual Disturbances: 0-None Headache: 4-Moderately Severe CIWA-Ar Total Score: 16 - Admission Criteria [facility] Guidelines: Admission for Medically Managed Detox: Requires at least one of the followin. CIWA greater than 12 2. Seizures within the past 24 hours 3. Delirium tremens within the past 24 hours 4. Hallucinations within the past 24 hours 5. Acute intervention needed for co occurring medical disorder 6. Acute intervention needed for co occurring psychiatric disorder 7. Severe withdrawal that cannot be handled at a lower level of care (continued vomiting, continued diarrhea, abnormal vital signs) requiring intravenous medication and/or fluids 8. Admission [facility] Chief Complaint: Heroin and alcohol withdrawal symptoms Allergies/Adverse Reactions: Allergies Allergy/AdvReac Type Severity Reaction Status Date / Time No Known Allergies Allergy Verified 12/26/18 19:23 History of Present Illness: 28 years old female with 3 years of heroin dependence and 16 years of alcohol dependence is seeking admission to detox. Patient reports that she has been in detox at different facilities and reports 5 years of sobriety. She has history of Herpes, alcohol related seizure and reports 5 years of sobriety. She reports suicide attempt at age 23 years and denies suicidal ideation at this time Exam Limitations: No Limitations - Ebola screening Have you traveled outside of the country in the last 21 days: No (N) Have you had contact with anyone from an Ebola affected area: No Do you have a fever: No - Review of Systems Constitutional: Chills, Weakness EENT: reports: Sinus Pressure Respiratory: reports: No Symptoms reported Cardiac: reports: No Symptoms Reported GI: reports: No Symptoms Reported, Nausea, Poor Appetite, Poor Fluid Intake, Abdominal cramping : reports: No Symptoms Reported Musculoskeletal: reports: Back Pain (knee pain), Other Integumentary: reports: Dryness, Flushing Neuro: reports: Headache, Tremors Endocrine: reports: No Symptoms Reported, See HPI, Increased Urine Hematology: reports: No Symptoms Reported Psychiatric: reports: Mood/Affect Appropiate, Orientated x3, Anxious Other Systems: Reviewed and Negative Patient History - Patient Medical History Hx Anemia: No Hx Asthma: No Hx Chronic Obstructive Pulmonary Disease (COPD): No Hx Cancer: No Hx Cardiac Disorders: No Hx Congestive Heart Failure: No Hx Hypertension: No Hx Hypercholesterolemia: No Hx Pacemaker: No HX Cerebrovascular Accident: No Hx Seizures: Yes (Not on medication) Hx Diabetes: No Hx Gastrointestinal Disorders: No Hx Liver Disease: No Hx Genitourinary Disorders: No Hx Sexually Transmitted Disorders: Yes (Herpes at age of 13 - Not treared) Hx Renal Disease (ESRD): No Hx Thyroid Disease: No Hx Human Immunodeficiency Virus (HIV): No Hx Hepatitis C: No Hx Depression: Yes (Not on medication) Hx Suicide Attempt: Yes (Attempt in Jul 2015 by hanging. Denies suicidal ideation now) Hx Bipolar Disorder: No Hx Schizophrenia: No - Patient Surgical History Past Surgical History: Yes Hx Neurologic Surgery: No Hx Cataract Extraction: No Hx Cardiac Surgery: No Hx Lung Surgery: No Hx Breast Surgery: No Hx Breast Biopsy: No Hx Abdominal Surgery: No Hx Appendectomy: No Hx Cholecystectomy: No Hx Genitourinary Surgery: No Hx Section: No Hx Orthopedic Surgery: Yes (right femur Fx 2012) Hx Hysterectomy: No Anesthesia Reaction: No - PPD History Date: 06/05/16 Results: 0mm - Reproductive History Patient is a Female of Child Bearing Age (11 -55 yrs old): Yes Last Menstrual Period: 12/12/18 - Smoking Cessation Smoking history: Current every day smoker Have you smoked in the past 12 months: Yes Aproximately how many cigarettes per day: 10 Cigars Per Day: 0 Hx Chewing Tobacco Use: No Initiated information on smoking cessation: Yes 'Breaking Loose' booklet given: 12/26/18 - Substance & Tx. History Hx Alcohol Use: Yes Hx Substance Use: Yes Substance Use Type: Alcohol, Cocaine, Heroin Hx Substance Use Treatment: Yes - Substances abused Alcohol Substance route: Oral Frequency: Daily Amount used: 6 to 10 cans of beers. 1 or 2 nips of vodka/alcohol. Age of first use: 12 Date of last use: 12/26/18 Heroin Substance route: Inhalation Frequency: Daily Amount used: 5 to 10 bags Age of first use: 25 Date of last use: 12/26/18 Cocaine Substance route: Inhalation Frequency: 3-6 times per week Amount used: 40 to 60 dollars Age of first use: 14 Date of last use: 12/26/18 Family Disease History - Family Disease History Family Disease History: Diabetes: Sister (pregancy) Admission Physical Exam [facility] - Vital Signs Vital Signs: Vital Signs - 24 hr 12/26/18 19:22 Temperature 97.5 F L Pulse Rate 64 Respiratory 18 Rate Blood Pressure 115/68 - Physical General Appearance: Yes: Moderate Distress, Tremorous, Sweating, Anxious HEENTM: Yes: Within Normal Limits, Normocephalic, Nasal Congestion Respiratory: Yes: Lungs Clear, Normal Breath Sounds, No Respiratory Distress Neck: Yes: Supple Breast: Yes: Breast Exam Deferred Cardiology: Yes: Regular Rhythm, Regular Rate Abdominal: Yes: Normal Bowel Sounds Genitourinary: Yes: Within Normal Limits Back: Yes: Normal Inspection Musculoskeletal: Yes: Back pain, Muscle Pain Extremities: Yes: Tremors Neurological: Yes: Within Normal Limits, Alert, Normal Mood/Affect Integumentary: Yes: Warm Lymphatic: Yes: Within Normal Limits - Diagnostic (1) Alcohol dependence with uncomplicated withdrawal Current Visit: Yes Status: Acute (2) Nicotine dependence Current Visit: Yes Status: Chronic Qualifiers: Nicotine product type: cigarettes Substance use status: uncomplicated Qualified Code(s): F17.210 - Nicotine dependence, cigarettes, uncomplicated (3) Opioid dependence with withdrawal Current Visit: Yes Status: Acute (4) Herpes Current Visit: Yes Status: Acute (5) Alcohol related seizure Current Visit: No Status: Chronic Cleared for Admission [facility] - Detox or Rehab [facility] Level of Care: Medically Managed Detox Regimen/Protocol: Methadone/Librium Claeared for Rehab Admission: No Breathalyzer - Breathalyzer Breathalyzer: 0 Urine Drug Screen - Test Device Lot number: [id number] Expiration date: 10/05/20 - Control Is test valid?: Yes - Results Drug screen NEGATIVE: No Urine drug screen results: CINDA-Cocaine, FEN-Fentanyl, MOP-Opiates, OXY-Oxycodone , BZO-Benzodiazepines Inpatient Rehab Admission - Rehab Decision to Admit Inpatient rehab admission?: No
[2018-12-26] MEDS ORDERED: MAG HYDROX/AL HYDROX/SIMETH 30 ML UNIT-DOSE CUP PO PRN (20:49)
[2018-12-26] MEDS ORDERED: hydrOXYzine PAMOATE 25 MG CAPSULE (FP) PO PRN (20:49)
[2018-12-26] MEDS ORDERED: MAGNESIUM HYDROX 2400MG/30ML ORAL SUSPENSION 30 ML CUP PO PRN (20:49)
[2018-12-26] MEDS ORDERED: ACETAMINOPHEN 325 MG TABLET (FP) PO PRN ×2 (20:49)
[2018-12-26] MEDS ORDERED: MAGNESIUM CITRATE 300 ML BOTTLE PO PRN (20:49)
[2018-12-26] MEDS ORDERED: METHADONE HCL 10 MG TABLET (FOR DETOX USE ONLY) PO ONE (20:49)
[2018-12-26] MEDS ORDERED: BISMUTH SUBSALICYLATE 524 MG/30 ML UD PO PRN (20:49)
[2018-12-26] MEDS ORDERED: cloNIDine HCL 0.1 MG TABLET PO PRN (20:49)
[2018-12-26] MEDS ORDERED: METHOCARBAMOL 500 MG TABLET PO PRN (20:49)
[2018-12-26] MEDS ORDERED: MENTHOL/PHENOL 1 EACH UD MM PRN (20:49)
[2018-12-26] MEDS ORDERED: chlordiazePOXIDE HCL 25 MG CAPSULE PO PRN (20:49)
[2018-12-26] MEDS ORDERED: IBUPROFEN 400 MG TABLET (FP) PO PRN (20:49)
[2018-12-26] MEDS: THIAMINE HCL 100 MG TABLET (FP) PO SCH (22:23)
[2018-12-26] MEDS: chlordiazePOXIDE HCL 25 MG CAPSULE PO SCH (22:23)
[2018-12-27] MEDS: chlordiazePOXIDE HCL 25 MG CAPSULE PO SCH ×4 (05:40→22:27)
--- NOTE | 2018-12-27 09:25 | EKG ---
Test Reason : Blood Pressure : / mmHG Vent. Rate : 060 BPM Atrial Rate : 060 BPM P-R Int : 150 ms QRS Dur : 074 ms QT Int : 402 ms P-R-T Axes : -16 011 002 degrees QTc Int : 402 ms NORMAL SINUS RHYTHM NORMAL ECG NO PREVIOUS ECGS AVAILABLE Confirmed by HUBER MC MD ([id number]) on 12/27/2018 9:25:26 AM Referred By: AGATHA KUMAR Confirmed By:HUBER MC MD
[2018-12-27] MEDS ORDERED: METHADONE HCL 10 MG TABLET (FOR DETOX USE ONLY) ONE (09:49)
[2018-12-27] MEDS ORDERED: METHADONE HCL 5 MG TABLET (FOR DETOX USE ONLY) ONE (09:49)
[2018-12-27] MEDS ORDERED: METHADONE (DETOX) 20 MG, METHADONE (DETOX) 5 MG PO ONE (10:00)
[2018-12-27] MEDS: PRENATAL VITAMINS W/ FOLIC ACID TABLET (FP) PO SCH (10:20)
[2018-12-27] MEDS: NICOTINE 14 MG/24 HOURS TOPICAL PATCH TD SCH (10:21)
[2018-12-27 12:14] LABS: HEMATOCRIT 39.2 % (32.4-45.2); HEMOGLOBIN 13.3 GM/dL (10.7-15.3); MCH 32.6 pg (25.7-33.7); MCHC 33.9 g/dl (32.0-36.0); MEAN CELL VOLUME 96.4 fl (80-96); MEAN PLT VOLUME 10.5 fl (7.5-11.1); PLATELET COUNT 160 K/MM3 (134-434); RBC 4.07 M/mm3 (3.60-5.2); RDW 13.8 % (11.6-15.6); WHITE BLOOD COUNT 5.5 K/mm3 (4.0-10.0)
[2018-12-27 12:34] LABS: ALBUMIN 3.5 g/dl (3.4-5.0); BILIRUBIN,TOTAL 0.6 mg/dL (0.2-1); BLOOD UREA NITROGEN 11.8 mg/dL (7-18); CREATININE 0.8 mg/dL (0.55-1.3); POTASSIUM 3.9 mmol/L (3.5-5.1); TOT PROT 6.4 g/dl (6.4-8.2)
--- NOTE | 2018-12-27 12:42 | PN ---
[facility] CIWA - CIWA Score Nausea/Vomitin-No Nausea/No Vomiting Muscle Tremors: 3 Anxiety: 3 Agitation: 3 Paroxysmal Sweats: 3 Orientation: 0-Oriented Tacttile Disturbances: 0-None Auditory Disturbances: 0-None Visual Disturbances: 0-None Headache: 0-None Present CIWA-Ar Total Score: 12 [facility] COWS - Scale Resting Pulse: 0= [place] 80 or Below Sweatin=Flushed/Facial Moisture Restless Observation: 1= Difficult to Sit Still Pupil Size: 0= Normal to Room Light Bone or Joint Aches: 1= Mild Discomfort Runny Nose/ Eye Tearin= Nasal Congestion GI Upset > 30mins: 1= Stomach Cramp Tremor Observation of Outstretched Hands: 1= Tremor [place], Not Seen Yawning Observation: 1= 1-2x During Session Anxiety or Irritability: 1=Feels Anxious/Irritable Goose Flesh Skin: 3=Piloerection COWS Score: 12 [facility] Progress Note (SOAP) Subjective: sweats shakes interrupted sleep body aches nausea Objective: 12/27/18 12:42 Vital Signs Temperature 98.1 F 12/27/18 09:33 Pulse Rate 74 12/27/18 09:33 Respiratory Rate 16 12/27/18 09:33 Blood Pressure 108/59 L 12/27/18 09:33 O2 Sat by Pulse Oximetry (%) Laboratory Tests 12/26/18 12/27/18 12/27/18 20:05 07:00 07:00 WBC 5.5 RBC 4.07 Hgb 13.3 Hct 39.2 MCV 96.4 H MCH 32.6 MCHC 33.9 RDW 13.8 Plt Count 160 D MPV 10.5 Sodium 141 Potassium 3.9 Chloride 105 Carbon Dioxide 31 Anion Gap 6 L BUN 11.8 Creatinine 0.8 Est GFR (CKD-EPI)AfAm 115.47 Est GFR (CKD-EPI)NonAf 99.63 Random Glucose 83 Calcium 9.0 Total Bilirubin 0.6 AST 15 ALT 24 Alkaline Phosphatase 70 Total Protein 6.4 Albumin 3.5 POC Urine HCG, Qual Negative labs noted aaox3 ambulating no acute distress Assessment: 12/27/18 12:43 withdrawal sx Plan: continue detox increase fluids
[2018-12-27] MEDS: THIAMINE HCL 100 MG TABLET (FP) PO SCH (22:28)
[2018-12-27] MEDS: MELATONIN 5 MG TABLETS PO PRN (22:28)
[2018-12-28] MEDS: chlordiazePOXIDE HCL 25 MG CAPSULE PO SCH ×4 (05:58→22:26)
[2018-12-28] MEDS ORDERED: METHADONE HCL 10 MG TABLET (FOR DETOX USE ONLY) PO ONE (10:00)
[2018-12-28] MEDS: PRENATAL VITAMINS W/ FOLIC ACID TABLET (FP) PO SCH (10:26)
[2018-12-28] MEDS: NICOTINE 14 MG/24 HOURS TOPICAL PATCH TD SCH (10:27)
--- NOTE | 2018-12-28 11:55 | PN ---
[facility] CIWA - CIWA Score Nausea/Vomitin-No Nausea/No Vomiting Muscle Tremors: 2 Anxiety: 2 Agitation: 2 Paroxysmal Sweats: 3 Orientation: 0-Oriented Tacttile Disturbances: 0-None Auditory Disturbances: 0-None Visual Disturbances: 0-None Headache: 0-None Present CIWA-Ar Total Score: 9 [facility] COWS - Scale Resting Pulse: 0= [place] 80 or Below Sweatin= Chills/Flushing Restless Observation: 0= Sits Still Pupil Size: 0= Normal to Room Light Bone or Joint Aches: 2= Severe Diffuse Aches Runny Nose/ Eye Tearin= Nasal Congestion GI Upset > 30mins: 0= None Tremor Observation of Outstretched Hands: 2= Slight Tremor Visible Yawning Observation: 1= 1-2x During Session Anxiety or Irritability: 1=Feels Anxious/Irritable Goose Flesh Skin: 0=Smooth Skin COWS Score: 8 [facility] Progress Note (SOAP) Subjective: sweats interrupted sleep tired body aches Objective: 12/28/18 11:55 Vital Signs Temperature 97.2 F L 12/28/18 10:04 Pulse Rate 68 12/28/18 10:04 Respiratory Rate 16 12/28/18 10:04 Blood Pressure 98/61 12/28/18 10:04 O2 Sat by Pulse Oximetry (%) Laboratory Tests 12/26/18 12/27/18 12/27/18 20:05 07:00 07:00 WBC 5.5 RBC 4.07 Hgb 13.3 Hct 39.2 MCV 96.4 H MCH 32.6 MCHC 33.9 RDW 13.8 Plt Count 160 D MPV 10.5 Sodium 141 Potassium 3.9 Chloride 105 Carbon Dioxide 31 Anion Gap 6 L BUN 11.8 Creatinine 0.8 Est GFR (CKD-EPI)AfAm 115.47 Est GFR (CKD-EPI)NonAf 99.63 Random Glucose 83 Calcium 9.0 Total Bilirubin 0.6 AST 15 ALT 24 Alkaline Phosphatase 70 Total Protein 6.4 Albumin 3.5 POC Urine HCG, Qual Negative RPR Titer HIV 1&2 Antibody Screen HIV P24 Antigen 12/27/18 12/27/18 07:00 07:00 WBC RBC Hgb Hct MCV MCH MCHC RDW Plt Count MPV Sodium Potassium Chloride Carbon Dioxide Anion Gap BUN Creatinine Est GFR (CKD-EPI)AfAm Est GFR (CKD-EPI)NonAf Random Glucose Calcium Total Bilirubin AST ALT Alkaline Phosphatase Total Protein Albumin POC Urine HCG, Qual RPR Titer Nonreactive HIV 1&2 Antibody Screen Negative HIV P24 Antigen Negative labs noted aaox3 lying in bed no acute distress Assessment: 12/28/18 11:55 withdrawal sx Plan: continue detox increase fluids
[2018-12-28] MEDS: NICOTINE POLACRILEX 2 MG GUM BUC PRN (13:47)
[2018-12-28] MEDS: THIAMINE HCL 100 MG TABLET (FP) PO SCH (22:26)
[2018-12-28] MEDS: MELATONIN 5 MG TABLETS PO PRN (22:26)
[2018-12-29] MEDS ORDERED: chlordiazePOXIDE HCL 10 MG CAPSULE PO PRN
[2018-12-29] MEDS: chlordiazePOXIDE HCL 10 MG CAPSULE PO SCH ×4 (05:14→22:35)
[2018-12-29] MEDS ORDERED: METHADONE HCL 5 MG TABLET (FOR DETOX USE ONLY) ONE (09:36)
[2018-12-29] MEDS ORDERED: METHADONE HCL 10 MG TABLET (FOR DETOX USE ONLY) ONE (09:36)
[2018-12-29] MEDS ORDERED: METHADONE (DETOX) 10 MG, METHADONE (DETOX) 5 MG PO ONE (10:00)
[2018-12-29] MEDS: NICOTINE 14 MG/24 HOURS TOPICAL PATCH TD SCH (10:10)
[2018-12-29] MEDS: PRENATAL VITAMINS W/ FOLIC ACID TABLET (FP) PO SCH (10:10)
[2018-12-29] MEDS: hydrOXYzine HCL 25 MG TABLET (FP) PO PRN ×3 (12:31→22:35)
--- NOTE | 2018-12-29 12:57 | PN ---
[facility] CIWA - CIWA Score Nausea/Vomitin-No Nausea/No Vomiting Muscle Tremors: 2 Anxiety: 2 Agitation: 2 Paroxysmal Sweats: 1-Minimal [place] Moist Orientation: 0-Oriented Tacttile Disturbances: 0-None Auditory Disturbances: 0-None Visual Disturbances: 0-None Headache: 0-None Present CIWA-Ar Total Score: 7 [facility] COWS - Scale Resting Pulse: 0= [place] 80 or Below Sweatin= Chills/Flushing Restless Observation: 1= Difficult to Sit Still Pupil Size: 0= Normal to Room Light Bone or Joint Aches: 1= Mild Discomfort Runny Nose/ Eye Tearin= Nasal Congestion GI Upset > 30mins: 0= None Tremor Observation of Outstretched Hands: 1= Tremor [place], Not Seen Yawning Observation: 1= 1-2x During Session Anxiety or Irritability: 1=Feels Anxious/Irritable Goose Flesh Skin: 0=Smooth Skin COWS Score: 7 [facility] Progress Note (SOAP) Subjective: joint pain sweats low appetite Objective: 12/29/18 12:57 Vital Signs Temperature 98.2 F 12/29/18 09:25 Pulse Rate 66 12/29/18 09:25 Respiratory Rate 18 12/29/18 09:25 Blood Pressure 103/64 12/29/18 09:25 O2 Sat by Pulse Oximetry (%) aaox3 ambulating no acute distress Assessment: 12/29/18 12:58 mild withdrawal sx Plan: continue detox increase fluids motrin prn muscle relaxants prn ensure bid
[2018-12-29] MEDS: THIAMINE HCL 100 MG TABLET (FP) PO SCH (22:35)
[2018-12-29] MEDS: MELATONIN 5 MG TABLETS PO PRN (22:36)
[2018-12-30] MEDS: chlordiazePOXIDE HCL 10 MG CAPSULE PO SCH ×2 (05:31→17:39)
[2018-12-30] MEDS ORDERED: METHADONE HCL 10 MG TABLET (FOR DETOX USE ONLY) PO ONE (10:00)
[2018-12-30] MEDS: NICOTINE 14 MG/24 HOURS TOPICAL PATCH TD SCH (10:13)
[2018-12-30] MEDS: hydrOXYzine HCL 25 MG TABLET (FP) PO PRN ×4 (10:13→23:12)
[2018-12-30] MEDS: PRENATAL VITAMINS W/ FOLIC ACID TABLET (FP) PO SCH (10:13)
--- NOTE | 2018-12-30 11:26 | PN ---
[facility] CIWA - CIWA Score Nausea/Vomitin-No Nausea/No Vomiting Muscle Tremors: 2 Anxiety: 1-Mildly Anxious Agitation: 1-Slight > Activity Paroxysmal Sweats: No Perspiration Orientation: 0-Oriented Tacttile Disturbances: 0-None Auditory Disturbances: 0-None Visual Disturbances: 0-None Headache: 0-None Present CIWA-Ar Total Score: 4 S COWS - Scale Resting Pulse: 0= [place] 80 or Below Sweatin= No chills or Flushing Restless Observation: 1= Difficult to Sit Still Pupil Size: 0= Normal to Room Light Bone or Joint Aches: 1= Mild Discomfort Runny Nose/ Eye Tearin= None GI Upset > 30mins: 1= Stomach Cramp Tremor Observation of Outstretched Hands: 0= None Yawning Observation: 0= None Anxiety or Irritability: 0= None Goose Flesh Skin: 0=Smooth Skin COWS Score: 3 S Progress Note (SOAP) Subjective: stomach ache Objective: 12/30/18 11:25 Vital Signs Temperature 97.3 F L 12/30/18 09:39 Pulse Rate 69 12/30/18 09:39 Respiratory Rate 18 12/30/18 09:39 Blood Pressure 100/57 L 12/30/18 09:39 O2 Sat by Pulse Oximetry (%) aaox3 ambulating no acute distress Assessment: 12/30/18 11:26 mild withdrawal sx Plan: continue detox MOM prn d/c in am
[2018-12-30] MEDS: NICOTINE POLACRILEX 2 MG GUM BUC PRN (12:32)
[2018-12-30 17:21] VITALS: TEMP 97.7
[2018-12-30] MEDS: MELATONIN 5 MG TABLETS PO PRN (22:16)
[2018-12-30] MEDS: THIAMINE HCL 100 MG TABLET (FP) PO SCH (22:16)
[2018-12-31] MEDS ORDERED: chlordiazePOXIDE HCL 10 MG CAPSULE PO ONE (05:00)
[2018-12-31] MEDS ORDERED: METHADONE HCL 5 MG TABLET (FOR DETOX USE ONLY) PO ONE (06:00)
[2018-12-31 06:23] VITALS: BP 99/67; PULSE 64
== END 2018-12-31 07:25 | disposition home or self-care (01) | DRG 775 ==
LOC: YASAS 17:59 → Y6N 20:56
PROVIDERS: ADMIT Surgery; ATTEND Surgery
PROC: HZ2ZZZZ Detoxification Services for Substance Abuse Treatment (ICD-10-PCS; principal; 2018-12-26)
DX: F10.230 Alcohol dependence with withdrawal, uncomplicated (principal); F17.210 Nicotine dependence, cigarettes, uncomplicated; B00.9 Herpesviral infection, unspecified; Z86.69 Personal history of other diseases of the nervous system and sense organs; Z91.5 Personal history of self-harm
CPT/HCPCS: 36415; 80053; 81025; 85027; 86480; 86593; 87389; 93005; 93010; J0735

== ENCOUNTER 2019-01-14 13:30 | Inpatient (IN) | payer OTHER ==
[2019-01-14 15:16] VITALS: BMI 24.1
--- NOTE | 2019-01-14 16:55 | HP ---
"COWS - Scale Resting Pulse: 0= [place] 80 or Below Sweatin=Flushed/Facial Moisture Restless Observation: 1= Difficult to Sit Still Pupil Size: 2= Moderately Dilated (Pupils = 3 mm) Bone or Joint Aches: 1= Mild Discomfort Runny Nose/ Eye Tearin= Nasal Congestion GI Upset > 30mins: 1= Stomach Cramp Tremor Observation: 2= Slight Tremor Visible Yawning Observation: 0= None Anxiety or Irritability: 1=Feels Anxious/Irritable Goose Flesh Skin: 0=Smooth Skin COWS Score: 11 CIWA Score Nausea/Vomitin-Mild Nausea/No Vomiting (MYNOR = 0.082) Muscle Tremors: 3 Anxiety: 1-Mildly Anxious Agitation: 0-Normal Activity Paroxysmal Sweats: 3 (Increased facial moisture) Orientation: 1-Uncertain about Date Tacttile Disturbances: 0-None Auditory Disturbances: 0-None Visual Disturbances: 2-Mild Sensitivity (To light) Headache: 2-Mild CIWA-Ar Total Score: 13 - Admission Criteria OASAS Guidelines: Admission for Medically Managed Detox: Requires at least one of the followin. CIWA greater than 12 2. Seizures within the past 24 hours 3. Delirium tremens within the past 24 hours 4. Hallucinations within the past 24 hours 5. Acute intervention needed for co occurring medical disorder 6. Acute intervention needed for co occurring psychiatric disorder 7. Severe withdrawal that cannot be handled at a lower level of care (continued vomiting, continued diarrhea, abnormal vital signs) requiring intravenous medication and/or fluids 8. Patient presents the following: CIWA greater than 12 Admission Criteria Met: Admission criteria met Admission ROS [facility] - [facility] Chief Complaint: I'm withdrawing from alcohol and heroin. Allergies/Adverse Reactions: Allergies Allergy/AdvReac Type Severity Reaction Status Date / Time No Known Allergies Allergy Verified 01/14/19 15:06 History of Present Illness: 28 year old presents with c/o alcohol and heroin withdrawal seeking admission to detox. Patient was just discharged from detox here at [facility] on 12/31/18. States relapsed the day after discharge. Heroin use since age 25. Current use 6-7 bags/day. Nasal. States last used this am.m. Alcohol use since age 12. Current use is approx 8 16 oz beers daily. Stopped droning the hard liquor. Cocaine use since age 14. Cocaine use 3-4 x/week. Nicotine use since age 11. Became a habit at age 20. Currently smoking about 8 cig/day. Declines nicotine patch. 12/27/2018: TB Gold test neg. 12/2018 EKG: NSR Patient reports multiple detoxes. Reports 5 years of sobriety age [age]. PMHx: Genital Herpes (no recent flare-up), Alcohol related seizure: MHHx: Suicide attempt at age 23; Denies thoughts of harming self or others. Patient Name: Rosa Isela Larkin Date: 1990 Address: [address] [facility] [place] [address] Sex: Female Rx Written Rx Dispensed Drug Quantity Days Supply Prescriber Name 05/24/2018 06/04/2018 chlordiazepoxide 25 mg capsule 8 2 Kwaku Bronson ( FLAKO) Search Terms: Rosa Isela Larkin, 1990 Search Date: 01/14/2019 04:59:59 PM States Searched: [place], [place], [place], [place], [place], [place], [place] The Drug Utilization Report below displays the controlled substance prescriptions, if any, that were dispensed in the indicated state(s). The information displayed on this report is compiled from requests submitted to other states' PMPs, and accurately reflects the information as returned by them. Blank weiss indicate data not provided by other state. This report was requested by: Deepali Calle | Reference #: [id number] Exam Limitations: No Limitations - Ebola screening Have you traveled outside of the country in the last 21 days: No Have you had contact with anyone from an Ebola affected area: No Have you been sick,other than usual withdrawal symptoms: No (Denies recent exposure to measles) Do you have a fever: No - Review of Systems Constitutional: Diaphoresis, Changes in sleep (Difficulty falling and staying asleep. Not on meds) EENT: reports: Nose Congestion Respiratory: reports: No Symptoms reported Cardiac: reports: Palpitations (States has paplatations when stops drinking) GI: reports: Nausea, Vomiting (Acid reflux - controlled w/ diet) : reports: No Symptoms Reported Musculoskeletal: reports: Back Pain (r/t withdrawal), Joint Pain (r/t withdrawal ) Integumentary: reports: No Symptoms Reported Neuro: reports: Headache (Temporal and frontal - mild) Endocrine: reports: Increased Thirst Hematology: reports: No Symptoms Reported Psychiatric: reports: Judgement Intact, Orientated x3 (Missed by one day) Patient History - Patient Medical History Hx Anemia: No Hx Asthma: No Hx Chronic Obstructive Pulmonary Disease (COPD): No Hx Cancer: No Hx Cardiac Disorders: No Hx Congestive Heart Failure: No Hx Hypertension: No Hx Hypercholesterolemia: No Hx Pacemaker: No HX Cerebrovascular Accident: No Hx Seizures: Yes (Not on medication) Hx Diabetes: No Hx Gastrointestinal Disorders: No Hx Liver Disease: No Hx Genitourinary Disorders: No Hx Sexually Transmitted Disorders: Yes (Herpes at age of 13 - Not treared) Hx Renal Disease (ESRD): No Hx Thyroid Disease: No Hx Human Immunodeficiency Virus (HIV): No Hx Hepatitis C: No Hx Depression: Yes (Not on medication) Hx Suicide Attempt: Yes (Attempt in Jul 2015 by hanging. Denies suicidal ideation now) Hx Bipolar Disorder: No Hx Schizophrenia: No - Patient Surgical History Past Surgical History: Yes Hx Neurologic Surgery: No Hx Cataract Extraction: No Hx Cardiac Surgery: No Hx Lung Surgery: No Hx Breast Surgery: No Hx Breast Biopsy: No Hx Abdominal Surgery: No Hx Appendectomy: No Hx Cholecystectomy: No Hx Genitourinary Surgery: No Hx Section: No Hx Orthopedic Surgery: Yes (right femur Fx 2012) Hx Hysterectomy: No Anesthesia Reaction: No - PPD History Previous Implant?: No (Quantiferon test negative 12/27/2018) Documented Results: Negative w/proof Implanted On Prior [facility] Admission?: Yes Date: 12/27/18 Results: 0mm PPD to be Administered?: No - Reproductive History Patient is a Female of Child Bearing Age (11 -55 yrs old): Yes Last Menstrual Period: 12/12/18 Patient : No - Smoking Cessation Smoking history: Current every day smoker Have you smoked in the past 12 months: Yes Aproximately how many cigarettes per day: 10 Cigars Per Day: 0 Hx Chewing Tobacco Use: No Initiated information on smoking cessation: Yes 'Breaking Loose' booklet given: 01/14/19 - Substance & Tx. History Hx Alcohol Use: Yes Hx Substance Use: Yes Substance Use Type: Alcohol, Cocaine, Heroin Hx Substance Use Treatment: Yes (detox, rehab) - Substances abused Alcohol Substance route: Oral Frequency: Daily Amount used: 8 cans of beers. Age of first use: 12 Date of last use: 01/14/19 Heroin Substance route: Inhalation Frequency: Daily Amount used: 6-7 bags Age of first use: 25 Date of last use: 01/14/19 Cocaine Substance route: Inhalation Frequency: 3-6 times per week Amount used: $10-30 dollars Age of first use: 14 Date of last use: 01/11/19 Family Disease History - Family Disease History Family Disease History: Diabetes: Sister (pregancy) Admission Physical Exam [facility] - Vital Signs Vital Signs: Vital Signs - 24 hr 01/14/19 15:07 Temperature 98.2 F Pulse Rate 70 Respiratory 16 Rate Blood Pressure 124/72 - Physical General Appearance: Yes: Nourished, Mild Distress, Tremorous, Irritable, Sweating (Increased facial moisture), Anxious HEENTM: Yes: EOMI, Hearing grossly Normal, Normocephalic, Normal Voice, VINH ( Pupils = 3 mm), Pharynx Normal Respiratory: Yes: Lungs Clear (O2 Sat = 99 %), Normal Breath Sounds, No Respiratory Distress Neck: Yes: No masses,lesions,Nodules, Supple Breast: Yes: Breast Exam Deferred Cardiology: Yes: Regular Rhythm, Regular Rate (HR: 64), S1, S2 Abdominal: Yes: Non Tender, Soft, Increased Bowel Sounds Genitourinary: Yes: Within Normal Limits Back: Yes: Normal Inspection Musculoskeletal: Yes: full range of Motion, Gait Steady Extremities: Yes: Normal Capillary Refill, Non-Tender, Tremors Neurological: Yes: dry color tester II-XII NML intact, Alert, Motor Strength 5/5 Integumentary: Yes: Normal Color, Warm, Moist (Increased facial mositure) Lymphatic: Yes: Within Normal Limits - Diagnostic (1) Cocaine dependence, uncomplicated Current Visit: Yes Status: Chronic (2) History of herpes genitalis Current Visit: No Status: Chronic Comment: Denies recent outbreak (3) Alcohol dependence with uncomplicated withdrawal Current Visit: Yes Status: Acute (4) Opioid dependence with withdrawal Current Visit: Yes Status: Acute (5) Nicotine dependence Current Visit: Yes Status: Chronic Qualifiers: Nicotine product type: cigarettes Substance use status: uncomplicated Qualified Code(s): F17.210 - Nicotine dependence, cigarettes, uncomplicated Cleared for Admission [facility] - Detox or Rehab [facility] Level of Care: Medically Managed Detox Regimen/Protocol: Methadone/Librium Claeared for Rehab Admission: No Breathalyzer - Breathalyzer Breathalyzer: 0.082 Urine Drug Screen - Test Device Lot number: [id number] Expiration date: 10/05/20 - Control Is test valid?: Yes - Results Drug screen NEGATIVE: No Urine drug screen results: CINDA-Cocaine, FEN-Fentanyl, MOP-Opiates, BZO- Benzodiazepines Inpatient Rehab Admission - Rehab Decision to Admit Inpatient rehab admission?: No"
[2019-01-14] MEDS ORDERED: IBUPROFEN 400 MG TABLET (FP) PO PRN (17:37)
[2019-01-14] MEDS ORDERED: cloNIDine HCL 0.1 MG TABLET PO PRN (17:37)
[2019-01-14] MEDS ORDERED: NICOTINE POLACRILEX 2 MG GUM BUC PRN (17:37)
[2019-01-14] MEDS ORDERED: MAGNESIUM CITRATE 300 ML BOTTLE PO PRN (17:37)
[2019-01-14] MEDS ORDERED: BISMUTH SUBSALICYLATE 524 MG/30 ML UD PO PRN (17:37)
[2019-01-14] MEDS ORDERED: MENTHOL/PHENOL 1 EACH UD MM PRN (17:37)
[2019-01-14] MEDS ORDERED: MAG HYDROX/AL HYDROX/SIMETH 30 ML UNIT-DOSE CUP PO PRN (17:37)
[2019-01-14] MEDS ORDERED: ACETAMINOPHEN 325 MG TABLET (FP) PO PRN ×2 (17:37)
[2019-01-14] MEDS ORDERED: MAGNESIUM HYDROX 2400MG/30ML ORAL SUSPENSION 30 ML CUP PO PRN (17:37)
[2019-01-14] MEDS ORDERED: METHADONE HCL 10 MG TABLET (FOR DETOX USE ONLY) PO ONE (19:00)
[2019-01-14] MEDS: THIAMINE HCL 100 MG TABLET (FP) PO SCH (22:11)
[2019-01-14] MEDS: chlordiazePOXIDE HCL 25 MG CAPSULE PO SCH (22:11)
[2019-01-14] MEDS: MELATONIN 5 MG TABLETS PO PRN (22:12)
[2019-01-15] MEDS: chlordiazePOXIDE HCL 25 MG CAPSULE PO SCH ×3 (05:25→21:01)
[2019-01-15 10:00] LABS: HEMATOCRIT 38.6 % (32.4-45.2); HEMOGLOBIN 13.1 GM/dL (10.7-15.3); MCH 32.6 pg (25.7-33.7); MEAN CELL VOLUME 95.7 fl (80-96); PLATELET COUNT 184 K/MM3 (134-434); RBC 4.03 M/mm3 (3.60-5.2); RDW 13.1 % (11.6-15.6); WHITE BLOOD COUNT 5.7 K/mm3 (4.0-10.0)
[2019-01-15] MEDS ORDERED: METHADONE HCL 5 MG TABLET (FOR DETOX USE ONLY) PO ONE (10:00)
[2019-01-15 10:17] LABS: ALBUMIN 3.4 g/dl (3.4-5.0); BILIRUBIN,TOTAL 0.6 mg/dL (0.2-1); BLOOD UREA NITROGEN 10.2 mg/dL (7-18); CALCIUM 8.9 mg/dL (8.5-10.1); CREATININE 0.8 mg/dL (0.55-1.3); POTASSIUM 4.3 mmol/L (3.5-5.1); TOT PROT 6.3 g/dl (6.4-8.2)
[2019-01-15] MEDS: PRENATAL VITAMINS W/ FOLIC ACID TABLET (FP) PO SCH (10:18)
[2019-01-15] MEDS: METHOCARBAMOL 500 MG TABLET PO PRN ×2 (10:19→21:01)
--- NOTE | 2019-01-15 10:44 | PN ---
S CIWA - CIWA Score Nausea/Vomitin-No Nausea/No Vomiting Muscle Tremors: 2 Anxiety: 3 Agitation: 0-Normal Activity Paroxysmal Sweats: 3 Orientation: 0-Oriented Tacttile Disturbances: 0-None Auditory Disturbances: 0-None Visual Disturbances: 0-None Headache: 2-Mild CIWA-Ar Total Score: 10 BHS COWS - Scale Resting Pulse: 0= [place] 80 or Below Sweatin= Beads of Sweat on Face Restless Observation: 1= Difficult to Sit Still Pupil Size: 0= Normal to Room Light Bone or Joint Aches: 2= Severe Diffuse Aches Runny Nose/ Eye Tearin= None GI Upset > 30mins: 0= None Tremor Observation of Outstretched Hands: 2= Slight Tremor Visible Yawning Observation: 1= 1-2x During Session Anxiety or Irritability: 2=Irritable/Anxious Goose Flesh Skin: 0=Smooth Skin COWS Score: 11 S Progress Note (SOAP) Subjective: c/o anxiety, irritability, sweats, and headache. Objective: 01/15/19 10:43 Vital Signs 01/15/19 01/15/19 01/15/19 06:30 06:31 09:22 Temperature 97.2 F L 97.0 F L Pulse Rate 51 L 58 L Respiratory 18 18 18 Rate Blood Pressure 89/62 L 121/78 Lab Results WBC 5.7 K/mm3 (4.0-10.0) 01/15/19 08:00 RBC 4.03 M/mm3 (3.60-5.2) 01/15/19 08:00 Hgb 13.1 GM/dL (10.7-15.3) 01/15/19 08:00 Hct 38.6 % (32.4-45.2) 01/15/19 08:00 MCV 95.7 fl (80-96) 01/15/19 08:00 MCHC 34.0 g/dl (32.0-36.0) 01/15/19 08:00 RDW 13.1 % (11.6-15.6) 01/15/19 08:00 Plt Count 184 K/MM3 (134-434) 01/15/19 08:00 Sodium 141 mmol/L (136-145) 01/15/19 08:00 Potassium 4.3 mmol/L (3.5-5.1) 01/15/19 08:00 Chloride 106 mmol/L (98-107) 01/15/19 08:00 Carbon Dioxide 31 mmol/L (21-32) 01/15/19 08:00 Anion Gap 5 MMOL/L (8-16) L 01/15/19 08:00 BUN 10.2 mg/dL (7-18) 01/15/19 08:00 Creatinine 0.8 mg/dL (0.55-1.3) 01/15/19 08:00 Random Glucose 80 mg/dL (74-106) 01/15/19 08:00 Calcium 8.9 mg/dL (8.5-10.1) 01/15/19 08:00 Labs noted. Assessment: 01/15/19 10:43 AOX3, in no acute respiratory distress Full ROM, ambulating in the unit. withdrawal symptoms. Plan: continue detox.
[2019-01-15] MEDS: chlordiazePOXIDE HCL 10 MG CAPSULE PO PRN (17:27)
[2019-01-15 17:34] LABS: EPI CELLS 10.5 /HPF (0-5/HPF); HYALINE CASTS 1 /lpf (0-8); PH,URINE 6.5 (5.0-8.0); URINE APPEARANCE CLOUDY; URINE BACTERIA 335.7 /hpf (NEGATIVE); URINE BILIRUBIN NEGATIVE (NEGATIVE); URINE COLOR ORANGE; URINE GLUCOSE (UA) NEGATIVE (NEGATIVE); URINE KETONE NEGATIVE (NEGATIVE); URINE LEUK ESTERASE TRACE (NEGATIVE); URINE NITRITE NEGATIVE (NEGATIVE); URINE PROTEIN TRACE (NEGATIVE); URINE RBC 2 /hpf (0-4); URINE UROBILINOGEN 0.2 mg/dL (0.2-1.0); URINE WBC 5 /hpf (0-5)
[2019-01-15] MEDS: THIAMINE HCL 100 MG TABLET (FP) PO SCH (21:01)
[2019-01-15] MEDS: MELATONIN 5 MG TABLETS PO PRN (21:01)
[2019-01-16] MEDS: chlordiazePOXIDE 5 MG CAPSULE PO SCH ×2 (05:51→12:57)
[2019-01-16] MEDS: METHOCARBAMOL 500 MG TABLET PO PRN ×2 (08:53→15:05)
--- NOTE | 2019-01-16 09:29 | PN ---
S CIWA - CIWA Score Nausea/Vomitin-No Nausea/No Vomiting Muscle Tremors: 2 Anxiety: 2 Agitation: 2 Paroxysmal Sweats: No Perspiration Orientation: 0-Oriented Tacttile Disturbances: 0-None Auditory Disturbances: 0-None Visual Disturbances: 0-None Headache: 0-None Present CIWA-Ar Total Score: 6 BHS COWS - Scale Resting Pulse: 0= [place] 80 or Below Sweatin= Chills/Flushing Restless Observation: 0= Sits Still Pupil Size: 0= Normal to Room Light Bone or Joint Aches: 1= Mild Discomfort Runny Nose/ Eye Tearin= Nasal Congestion GI Upset > 30mins: 1= Stomach Cramp Tremor Observation of Outstretched Hands: 1= Tremor [place], Not Seen Yawning Observation: 0= None Anxiety or Irritability: 1=Feels Anxious/Irritable Goose Flesh Skin: 0=Smooth Skin COWS Score: 6 S Progress Note (SOAP) Subjective: report feeling better prefers to begin alcohol and opiate rehab tomorrow less tremor mild body aches hesitate to discuss aftercare with staff encourage medication assisted treatment program Objective: 01/16/19 09:31 Vital Signs Temperature 98.5 F 01/16/19 09:29 Pulse Rate 79 01/16/19 09:29 Respiratory Rate 18 01/16/19 09:29 Blood Pressure 114/75 01/16/19 09:29 O2 Sat by Pulse Oximetry (%) Laboratory Last Values WBC 5.7 K/mm3 (4.0-10.0) 01/15/19 08:00 RBC 4.03 M/mm3 (3.60-5.2) 01/15/19 08:00 Hgb 13.1 GM/dL (10.7-15.3) 01/15/19 08:00 Hct 38.6 % (32.4-45.2) 01/15/19 08:00 MCV 95.7 fl (80-96) 01/15/19 08:00 MCH 32.6 pg (25.7-33.7) 01/15/19 08:00 MCHC 34.0 g/dl (32.0-36.0) 01/15/19 08:00 RDW 13.1 % (11.6-15.6) 01/15/19 08:00 Plt Count 184 K/MM3 (134-434) 01/15/19 08:00 MPV 10.0 fl (7.5-11.1) 01/15/19 08:00 Sodium 141 mmol/L (136-145) 01/15/19 08:00 Potassium 4.3 mmol/L (3.5-5.1) 01/15/19 08:00 Chloride 106 mmol/L (98-107) 01/15/19 08:00 Carbon Dioxide 31 mmol/L (21-32) 01/15/19 08:00 Anion Gap 5 MMOL/L (8-16) L 01/15/19 08:00 BUN 10.2 mg/dL (7-18) 01/15/19 08:00 Creatinine 0.8 mg/dL (0.55-1.3) 01/15/19 08:00 Est GFR (CKD-EPI)AfAm 115.47 01/15/19 08:00 Est GFR (CKD-EPI)NonAf 99.63 01/15/19 08:00 Random Glucose 80 mg/dL (74-106) 01/15/19 08:00 Calcium 8.9 mg/dL (8.5-10.1) 01/15/19 08:00 Total Bilirubin 0.6 mg/dL (0.2-1) 01/15/19 08:00 AST 17 U/L (15-37) 01/15/19 08:00 ALT 28 U/L (13-61) 01/15/19 08:00 Alkaline Phosphatase 69 U/L (45-117) 01/15/19 08:00 Total Protein 6.3 g/dl (6.4-8.2) L 01/15/19 08:00 Albumin 3.4 g/dl (3.4-5.0) 01/15/19 08:00 Urine Color [place] 01/15/19 13:00 Urine Appearance Cloudy 01/15/19 13:00 Urine pH 6.5 (5.0-8.0) 01/15/19 13:00 Ur Specific [place] 1.007 (1.010-1.035) L 01/15/19 13:00 Urine Protein Trace (NEGATIVE) 01/15/19 13:00 Urine Glucose (UA) Negative (NEGATIVE) 01/15/19 13:00 Urine Ketones Negative (NEGATIVE) 01/15/19 13:00 Urine Blood 3+ (NEGATIVE) H 01/15/19 13:00 Urine Nitrite Negative (NEGATIVE) 01/15/19 13:00 Urine Bilirubin Negative (NEGATIVE) 01/15/19 13:00 Urine Urobilinogen 0.2 mg/dL (0.2-1.0) 01/15/19 13:00 Ur Leukocyte Esterase Trace (NEGATIVE) 01/15/19 13:00 Urine WBC (Auto) 5 /hpf (0-5) 01/15/19 13:00 Urine RBC (Auto) 2 /hpf (0-4) 01/15/19 13:00 Urine Casts (Auto) 1 /lpf (0-8) 01/15/19 13:00 U Epithel Cells (Auto) 10.5 /HPF (0-5/HPF) 01/15/19 13:00 Urine Bacteria (Auto) 335.7 /hpf (NEGATIVE) 01/15/19 13:00 RPR Titer Nonreactive (NONREACTIVE) 01/15/19 08:00 lab noted asymptomatic uti 01/16/19 09:32 Assessment: 01/16/19 09:33 mild alcohol and opiate withdrawal sx 01/16/19 09:34 Plan: continue alcohol and opiate detox modify librium detox protocol as per patient preference
[2019-01-16] MEDS ORDERED: METHADONE HCL 10 MG TABLET (FOR DETOX USE ONLY) PO ONE (10:00)
[2019-01-16] MEDS: PRENATAL VITAMINS W/ FOLIC ACID TABLET (FP) PO SCH (10:09)
[2019-01-16] MEDS: chlordiazePOXIDE HCL 10 MG CAPSULE PO PRN (11:28)
[2019-01-16] MEDS ORDERED: hydrOXYzine PAMOATE 25 MG CAPSULE (FP) PO PRN (11:35)
[2019-01-16 13:28] VITALS: PULSE 56
[2019-01-16 17:23] VITALS: BP 95/61; TEMP 97.5
--- NOTE | 2019-01-16 17:56 | PN ---
[facility] Progress Note Note: patient did not want to complete treatment,the risk of relapsing is high, patient understood ,signed release ama,
--- NOTE | 2019-01-16 18:02 | DS ---
[facility] Detox Discharge Summary Admission Date: 01/14/19 Discharge Date: 01/17/19 - History Present History: Alcohol Dependence, Cocaine Dependence, Opioid Dependence Additional Comments: patient signed release AMA - Physical Exam Results Vital Signs: Vital Signs Temperature 97.5 F L 01/16/19 17:22 Pulse Rate 56 L 01/16/19 17:22 Respiratory Rate 18 01/16/19 17:22 Blood Pressure 95/61 01/16/19 17:22 O2 Sat by Pulse Oximetry (%) Pertinent Admission Physical Exam Findings: withdrawal sign and symptom Laboratory Last Values WBC 5.7 K/mm3 (4.0-10.0) 01/15/19 08:00 RBC 4.03 M/mm3 (3.60-5.2) 01/15/19 08:00 Hgb 13.1 GM/dL (10.7-15.3) 01/15/19 08:00 Hct 38.6 % (32.4-45.2) 01/15/19 08:00 MCV 95.7 fl (80-96) 01/15/19 08:00 MCH 32.6 pg (25.7-33.7) 01/15/19 08:00 MCHC 34.0 g/dl (32.0-36.0) 01/15/19 08:00 RDW 13.1 % (11.6-15.6) 01/15/19 08:00 Plt Count 184 K/MM3 (134-434) 01/15/19 08:00 MPV 10.0 fl (7.5-11.1) 01/15/19 08:00 Sodium 141 mmol/L (136-145) 01/15/19 08:00 Potassium 4.3 mmol/L (3.5-5.1) 01/15/19 08:00 Chloride 106 mmol/L (98-107) 01/15/19 08:00 Carbon Dioxide 31 mmol/L (21-32) 01/15/19 08:00 Anion Gap 5 MMOL/L (8-16) L 01/15/19 08:00 BUN 10.2 mg/dL (7-18) 01/15/19 08:00 Creatinine 0.8 mg/dL (0.55-1.3) 01/15/19 08:00 Est GFR (CKD-EPI)AfAm 115.47 01/15/19 08:00 Est GFR (CKD-EPI)NonAf 99.63 01/15/19 08:00 Random Glucose 80 mg/dL (74-106) 01/15/19 08:00 Calcium 8.9 mg/dL (8.5-10.1) 01/15/19 08:00 Total Bilirubin 0.6 mg/dL (0.2-1) 01/15/19 08:00 AST 17 U/L (15-37) 01/15/19 08:00 ALT 28 U/L (13-61) 01/15/19 08:00 Alkaline Phosphatase 69 U/L (45-117) 01/15/19 08:00 Total Protein 6.3 g/dl (6.4-8.2) L 01/15/19 08:00 Albumin 3.4 g/dl (3.4-5.0) 01/15/19 08:00 Urine Color [place] 01/15/19 13:00 Urine Appearance Cloudy 01/15/19 13:00 Urine pH 6.5 (5.0-8.0) 01/15/19 13:00 Ur Specific [place] 1.007 (1.010-1.035) L 01/15/19 13:00 Urine Protein Trace (NEGATIVE) 01/15/19 13:00 Urine Glucose (UA) Negative (NEGATIVE) 01/15/19 13:00 Urine Ketones Negative (NEGATIVE) 01/15/19 13:00 Urine Blood 3+ (NEGATIVE) H 01/15/19 13:00 Urine Nitrite Negative (NEGATIVE) 01/15/19 13:00 Urine Bilirubin Negative (NEGATIVE) 01/15/19 13:00 Urine Urobilinogen 0.2 mg/dL (0.2-1.0) 01/15/19 13:00 Ur Leukocyte Esterase Trace (NEGATIVE) 01/15/19 13:00 Urine WBC (Auto) 5 /hpf (0-5) 01/15/19 13:00 Urine RBC (Auto) 2 /hpf (0-4) 01/15/19 13:00 Urine Casts (Auto) 1 /lpf (0-8) 01/15/19 13:00 U Epithel Cells (Auto) 10.5 /HPF (0-5/HPF) 01/15/19 13:00 Urine Bacteria (Auto) 335.7 /hpf (NEGATIVE) 01/15/19 13:00 RPR Titer Nonreactive (NONREACTIVE) 01/15/19 08:00 - Medication Discharge Medications: Ambulatory Orders NK [No Known Home Medication] 06/03/16 - Diagnosis (1) Alcohol dependence with uncomplicated withdrawal Current Visit: Yes Status: Acute (2) Opioid dependence with withdrawal Current Visit: Yes Status: Acute (3) Cocaine dependence, uncomplicated Current Visit: Yes Status: Chronic (4) Nicotine dependence Current Visit: Yes Status: Chronic Qualifiers: Nicotine product type: cigarettes Substance use status: uncomplicated Qualified Code(s): F17.210 - Nicotine dependence, cigarettes, uncomplicated - AMA Did Patient Leave Against Medical Advice: Yes
[2019-01-17] MEDS ORDERED: chlordiazePOXIDE HCL 10 MG CAPSULE PO PRN
[2019-01-17] MEDS ORDERED: chlordiazePOXIDE HCL 10 MG CAPSULE PO ONE (05:00)
[2019-01-17] MEDS ORDERED: chlordiazePOXIDE HCL 10 MG CAPSULE PO SCH (05:00)
[2019-01-17] MEDS ORDERED: METHADONE HCL 5 MG TABLET (FOR DETOX USE ONLY) PO ONE (06:00)
[2019-01-18] MEDS ORDERED: chlordiazePOXIDE HCL 10 MG CAPSULE PO ONE (05:00)
== END 2019-01-16 18:07 | disposition left against medical advice (07) | DRG 770 ==
LOC: YASAS 13:30 → Y3N 18:07
PROVIDERS: ADMIT Surgery; ATTEND Surgery
PROC: HZ2ZZZZ Detoxification Services for Substance Abuse Treatment (ICD-10-PCS; principal; 2019-01-14)
DX: F11.23 Opioid dependence with withdrawal (principal); F10.230 Alcohol dependence with withdrawal, uncomplicated; F14.20 Cocaine dependence, uncomplicated; F17.210 Nicotine dependence, cigarettes, uncomplicated; Z86.69 Personal history of other diseases of the nervous system and sense organs; Z87.42 Personal history of other diseases of the female genital tract; Z91.5 Personal history of self-harm
CPT/HCPCS: 36415; 80053; 81003; 81025; 85027; 86593

== ENCOUNTER 2019-03-29 10:24 | Inpatient (IN) | payer OTHER ==
[2019-03-29 10:46] VITALS: BMI 23.4
--- NOTE | 2019-03-29 12:01 | HP ---
COWS - Scale Resting Pulse: 0= [place] 80 or Below Sweatin= Chills/Flushing Restless Observation: 1= Difficult to Sit Still Pupil Size: 0= Normal to Room Light Bone or Joint Aches: 4=Acute Joint/Muscle Pain Runny Nose/ Eye Tearin= None GI Upset > 30mins: 2= Nausea/Diarrhea Tremor Observation: 0= None Yawning Observation: 0= None Anxiety or Irritability: 1=Feels Anxious/Irritable Goose Flesh Skin: 0=Smooth Skin COWS Score: 9 CIWA Score Nausea/Vomitin-No Nausea/No Vomiting Muscle Tremors: None Anxiety: 2 Agitation: 2 Paroxysmal Sweats: No Perspiration Orientation: 0-Oriented Tacttile Disturbances: 0-None Auditory Disturbances: 2-Mild Harshness/Frighten Visual Disturbances: 3-Moderate Sensitivity Headache: 4-Moderately Severe CIWA-Ar Total Score: 13 - Admission Criteria OASAS Guidelines: Admission for Medically Managed Detox: Requires at least one of the followin. CIWA greater than 12 2. Seizures within the past 24 hours 3. Delirium tremens within the past 24 hours 4. Hallucinations within the past 24 hours 5. Acute intervention needed for co occurring medical disorder 6. Acute intervention needed for co occurring psychiatric disorder 7. Severe withdrawal that cannot be handled at a lower level of care (continued vomiting, continued diarrhea, abnormal vital signs) requiring intravenous medication and/or fluids 8. Admitting History and Physical - Past Medical History ...LMP: 12/12/18 - Smoking History Smoking history: Current every day smoker Have you smoked in the past 12 months: Yes Aproximately how many cigarettes per day: 10 - Alcohol/Substance Use Hx Alcohol Use: Yes Admission [facility] Allergies/Adverse Reactions: Allergies Allergy/AdvReac Type Severity Reaction Status Date / Time No Known Allergies Allergy Verified 03/29/19 10:43 History of Present Illness: etoh 10 beers/day and 2-3 nips / day heroin 8-10 bags via inhalation cocaine : 40 $ /day cannabis - denies tobacco - < 1 ppd denies PMHX s/p completed TOP 03/23/19 , has documentation of f/up 03/28/19 . Exam Limitations: No Limitations - Ebola screening Have you traveled outside of the country in the last 21 days: No Have you had contact with anyone from an Ebola affected area: No Do you have a fever: No - Review of Systems Constitutional: See HPI EENT: reports: No Symptoms Reported Respiratory: reports: No Symptoms reported Cardiac: reports: No Symptoms Reported GI: reports: See HPI : reports: No Symptoms Reported Musculoskeletal: reports: See HPI Integumentary: reports: No Symptoms Reported Neuro: reports: Headache Endocrine: reports: No Symptoms Reported Psychiatric: reports: Orientated x3, Anxious Patient History - Patient Medical History Hx Anemia: No Hx Asthma: No Hx Chronic Obstructive Pulmonary Disease (COPD): No Hx Cancer: No Hx Cardiac Disorders: No Hx Congestive Heart Failure: No Hx Hypertension: No Hx Hypercholesterolemia: No Hx Pacemaker: No HX Cerebrovascular Accident: No Hx Seizures: Yes (Not on medication) Hx Diabetes: No Hx Gastrointestinal Disorders: No Hx Liver Disease: No Hx Genitourinary Disorders: No Hx Sexually Transmitted Disorders: Yes (Herpes at age of 13 - Not treared) Hx Renal Disease (ESRD): No Hx Thyroid Disease: No Hx Human Immunodeficiency Virus (HIV): No Hx Hepatitis C: No Hx Depression: Yes (Not on medication) Hx Suicide Attempt: Yes (Attempt in Jul 2015 by hanging. Denies suicidal ideation now) Hx Bipolar Disorder: No Hx Schizophrenia: No - Patient Surgical History Past Surgical History: Yes Hx Neurologic Surgery: No Hx Cataract Extraction: No Hx Cardiac Surgery: No Hx Lung Surgery: No Hx Breast Surgery: No Hx Breast Biopsy: No Hx Abdominal Surgery: No Hx Appendectomy: No Hx Cholecystectomy: No Hx Genitourinary Surgery: No Hx Section: No Hx Orthopedic Surgery: Yes (right femur Fx 2012) Hx Hysterectomy: No Anesthesia Reaction: No - PPD History Date: 12/27/18 Results: 0mm - Reproductive History Last Menstrual Period: 12/12/18 - Smoking Cessation Smoking history: Current every day smoker Have you smoked in the past 12 months: Yes Aproximately how many cigarettes per day: 10 Cigars Per Day: 0 Hx Chewing Tobacco Use: No Initiated information on smoking cessation: Yes 'Breaking Loose' booklet given: 03/29/19 - Substances abused Alcohol Substance route: Oral Frequency: Daily Amount used: 8 cans of beers & 3 nibs of vodka Age of first use: 12 Date of last use: 03/29/19 Heroin Substance route: Inhalation Frequency: Daily Amount used: 8-10 Age of first use: 25 Date of last use: 03/29/19 Cocaine Substance route: Smoking Frequency: 3-6 times per week Amount used: $80 Age of first use: 26 Date of last use: 03/28/19 Admission Physical Exam BHS - Vital Signs Vital Signs: Vital Signs - 24 hr 03/29/19 10:42 Temperature 97 F L Pulse Rate 80 Respiratory 18 Rate Blood Pressure 116/64 - Physical General Appearance: Yes: No Apparent Distress HEENTM: Yes: EOMI, Hearing grossly Normal, Normocephalic, Normal Voice Respiratory: Yes: Lungs Clear, Normal Breath Sounds, No Respiratory Distress, No Accessory Muscle Use Neck: Yes: No masses,lesions,Nodules, Trachea in good position Cardiology: Yes: Regular Rhythm, Regular Rate, S1, S2, Other (QTc 402 ms ) Back: Yes: Normal Inspection Musculoskeletal: Yes: full range of Motion, Gait Steady Extremities: Yes: Normal Capillary Refill, Normal Range of Motion, Non-Tender Neurological: Yes: Fully Oriented, Alert, Motor Strength 5/5, Normal Mood/Affect Integumentary: Yes: Warm - Diagnostic (1) Alcohol dependence with uncomplicated withdrawal Current Visit: Yes Status: Chronic (2) Opioid dependence with withdrawal Current Visit: Yes Status: Chronic (3) Cocaine dependence, uncomplicated Current Visit: Yes Status: Chronic (4) Nicotine dependence Current Visit: Yes Status: Chronic Qualifiers: Nicotine product type: cigarettes Breathalyzer - Breathalyzer Breathalyzer: 0 Urine Drug Screen - Test Device Lot number: [id number] Expiration date: 11/05/20 - Control Is test valid?: Yes - Results Drug screen NEGATIVE: No Urine drug screen results: THC-Marijuana, CINDA-Cocaine, FEN-Fentanyl, MOP-Opiates , OXY-Oxycodone Inpatient Rehab Admission - Rehab Decision to Admit Inpatient rehab admission?: No
[2019-03-29] MEDS ORDERED: hydrOXYzine PAMOATE 25 MG CAPSULE (FP) PO PRN (12:21)
[2019-03-29] MEDS ORDERED: MAG HYDROX/AL HYDROX/SIMETH 30 ML UNIT-DOSE CUP PO PRN (12:21)
[2019-03-29] MEDS ORDERED: MAGNESIUM HYDROX 2400MG/30ML ORAL SUSPENSION 30 ML CUP PO PRN (12:21)
[2019-03-29] MEDS ORDERED: MENTHOL/PHENOL 1 EACH UD MM PRN (12:21)
[2019-03-29] MEDS ORDERED: ACETAMINOPHEN 325 MG TABLET (FP) PO PRN ×2 (12:21)
[2019-03-29] MEDS ORDERED: BISMUTH SUBSALICYLATE 262 MG/15 ML BTL PO PRN (12:21)
[2019-03-29] MEDS ORDERED: MAGNESIUM CITRATE 300 ML BOTTLE PO PRN (12:21)
[2019-03-29] MEDS ORDERED: IBUPROFEN 400 MG TABLET (FP) PO PRN (12:21)
[2019-03-29] MEDS ORDERED: chlordiazePOXIDE HCL 10 MG CAPSULE PO PRN (12:24)
[2019-03-29] MEDS: chlordiazePOXIDE HCL 25 MG CAPSULE PO SCH ×2 (13:49→22:01)
[2019-03-29] MEDS ORDERED: METHADONE HCL 10 MG TABLET (FOR DETOX USE ONLY) PO ONE (21:00)
[2019-03-29] MEDS: MELATONIN 5 MG TABLETS PO PRN (22:00)
[2019-03-29] MEDS: THIAMINE HCL 100 MG TABLET (FP) PO SCH (22:01)
[2019-03-30] MEDS: chlordiazePOXIDE HCL 25 MG CAPSULE PO SCH ×3 (06:33→22:56)
[2019-03-30 09:50] LABS: HEMATOCRIT 38.7 % (32.4-45.2); HEMOGLOBIN 13.2 GM/dL (10.7-15.3); MCH 32.3 pg (25.7-33.7); MEAN CELL VOLUME 95.1 fl (80-96); MEAN PLT VOLUME 9.6 fl (7.5-11.1); PLATELET COUNT 229 K/MM3 (134-434); RBC 4.07 M/mm3 (3.60-5.2); RDW 13.5 % (11.6-15.6); WHITE BLOOD COUNT 5.3 K/mm3 (4.0-10.0)
[2019-03-30] MEDS ORDERED: METHADONE HCL 5 MG TABLET (FOR DETOX USE ONLY) PO ONE (10:00)
[2019-03-30] MEDS: PRENATAL VITAMINS W/ FOLIC ACID TABLET (FP) PO SCH (10:20)
[2019-03-30 10:28] LABS: ALBUMIN 3.2 g/dl (3.4-5.0); BILIRUBIN,TOTAL 0.5 mg/dL (0.2-1); BLOOD UREA NITROGEN 9.4 mg/dL (7-18); CALCIUM 8.7 mg/dL (8.5-10.1); CREATININE 0.8 mg/dL (0.55-1.3); POTASSIUM 3.9 mmol/L (3.5-5.1); TOT PROT 6.1 g/dl (6.4-8.2)
--- NOTE | 2019-03-30 11:40 | PN ---
[facility] CIWA - CIWA Score Nausea/Vomitin-No Nausea/No Vomiting Muscle Tremors: 3 Anxiety: 2 Agitation: 3 Paroxysmal Sweats: 3 Orientation: 0-Oriented Tacttile Disturbances: 0-None Auditory Disturbances: 0-None Visual Disturbances: 0-None Headache: 0-None Present CIWA-Ar Total Score: 11 S COWS - Scale Resting Pulse: 1= [place] 81-100 Sweatin= Chills/Flushing Restless Observation: 1= Difficult to Sit Still Pupil Size: 0= Normal to Room Light Bone or Joint Aches: 1= Mild Discomfort Runny Nose/ Eye Tearin= Nasal Congestion GI Upset > 30mins: 0= None Tremor Observation of Outstretched Hands: 1= Tremor [place], Not Seen Yawning Observation: 1= 1-2x During Session Anxiety or Irritability: 1=Feels Anxious/Irritable Goose Flesh Skin: 0=Smooth Skin COWS Score: 8 S Progress Note (SOAP) Subjective: sweats mild shakes interrupted sleep agitation Objective: 03/30/19 11:39 Vital Signs Temperature 99.1 F 03/30/19 09:25 Pulse Rate 82 03/30/19 09:25 Respiratory Rate 18 03/30/19 09:25 Blood Pressure 120/61 03/30/19 09:25 O2 Sat by Pulse Oximetry (%) Laboratory Tests 03/29/19 03/30/19 03/30/19 11:32 08:15 08:15 WBC 5.3 RBC 4.07 Hgb 13.2 Hct 38.7 MCV 95.1 MCH 32.3 MCHC 34.0 RDW 13.5 Plt Count 229 D MPV 9.6 Sodium Potassium Chloride Carbon Dioxide Anion Gap BUN Creatinine Est GFR (CKD-EPI)AfAm Est GFR (CKD-EPI)NonAf Random Glucose Calcium Total Bilirubin AST ALT Alkaline Phosphatase Total Protein Albumin POC Urine HCG, Qual Positive RPR Titer HIV 1&2 Antibody Screen Negative HIV P24 Antigen Negative 03/30/19 03/30/19 08:15 08:15 WBC RBC Hgb Hct MCV MCH MCHC RDW Plt Count MPV Sodium 143 Potassium 3.9 Chloride 110 H Carbon Dioxide 27 Anion Gap 6 L BUN 9.4 Creatinine 0.8 Est GFR (CKD-EPI)AfAm 115.47 Est GFR (CKD-EPI)NonAf 99.63 Random Glucose 97 Calcium 8.7 Total Bilirubin 0.5 AST 16 ALT 25 Alkaline Phosphatase 59 Total Protein 6.1 L Albumin 3.2 L POC Urine HCG, Qual RPR Titer Nonreactive HIV 1&2 Antibody Screen HIV P24 Antigen labs noted aaox3 ambulating no acute distress Assessment: 03/30/19 11:40 withdrawals Plan: continue detox increase fluids
[2019-03-30] MEDS: MELATONIN 5 MG TABLETS PO PRN (22:56)
[2019-03-30] MEDS: THIAMINE HCL 100 MG TABLET (FP) PO SCH (22:56)
[2019-03-31] MEDS: chlordiazePOXIDE 5 MG CAPSULE PO SCH ×3 (05:59→21:54)
[2019-03-31] MEDS: METHOCARBAMOL 500 MG TABLET PO PRN ×3 (06:00→21:55)
[2019-03-31] MEDS ORDERED: METHADONE HCL 10 MG TABLET (FOR DETOX USE ONLY) PO ONE (10:00)
[2019-03-31] MEDS: PRENATAL VITAMINS W/ FOLIC ACID TABLET (FP) PO SCH (10:24)
--- NOTE | 2019-03-31 12:24 | PN ---
[facility] CIWA - CIWA Score Nausea/Vomitin-No Nausea/No Vomiting Muscle Tremors: 3 Anxiety: 2 Agitation: 2 Paroxysmal Sweats: 2 Orientation: 0-Oriented Tacttile Disturbances: 0-None Auditory Disturbances: 0-None Visual Disturbances: 0-None Headache: 0-None Present CIWA-Ar Total Score: 9 BHS COWS - Scale Resting Pulse: 0= [place] 80 or Below Sweatin= Chills/Flushing Restless Observation: 1= Difficult to Sit Still Pupil Size: 0= Normal to Room Light Bone or Joint Aches: 2= Severe Diffuse Aches Runny Nose/ Eye Tearin= None GI Upset > 30mins: 0= None Tremor Observation of Outstretched Hands: 1= Tremor [place], Not Seen Yawning Observation: 1= 1-2x During Session Anxiety or Irritability: 1=Feels Anxious/Irritable Goose Flesh Skin: 0=Smooth Skin COWS Score: 7 S Progress Note (SOAP) Subjective: agitation sweats chills irritable Objective: 03/31/19 12:23 Vital Signs Temperature 98.4 F 03/31/19 09:34 Pulse Rate 78 03/31/19 09:34 Respiratory Rate 18 03/31/19 09:34 Blood Pressure 126/75 03/31/19 09:34 O2 Sat by Pulse Oximetry (%) Laboratory Tests 03/29/19 03/30/19 03/30/19 11:32 08:15 08:15 WBC 5.3 RBC 4.07 Hgb 13.2 Hct 38.7 MCV 95.1 MCH 32.3 MCHC 34.0 RDW 13.5 Plt Count 229 D MPV 9.6 Sodium Potassium Chloride Carbon Dioxide Anion Gap BUN Creatinine Est GFR (CKD-EPI)AfAm Est GFR (CKD-EPI)NonAf Random Glucose Calcium Total Bilirubin AST ALT Alkaline Phosphatase Total Protein Albumin POC Urine HCG, Qual Positive RPR Titer HIV 1&2 Antibody Screen Negative HIV P24 Antigen Negative 03/30/19 03/30/19 08:15 08:15 WBC RBC Hgb Hct MCV MCH MCHC RDW Plt Count MPV Sodium 143 Potassium 3.9 Chloride 110 H Carbon Dioxide 27 Anion Gap 6 L BUN 9.4 Creatinine 0.8 Est GFR (CKD-EPI)AfAm 115.47 Est GFR (CKD-EPI)NonAf 99.63 Random Glucose 97 Calcium 8.7 Total Bilirubin 0.5 AST 16 ALT 25 Alkaline Phosphatase 59 Total Protein 6.1 L Albumin 3.2 L POC Urine HCG, Qual RPR Titer Nonreactive HIV 1&2 Antibody Screen HIV P24 Antigen labs noted aaox3 ambulating no acute distress Assessment: 03/31/19 12:24 withdrawals Plan: continue detox increase fluids
[2019-03-31] MEDS: THIAMINE HCL 100 MG TABLET (FP) PO SCH (21:54)
[2019-03-31] MEDS: MELATONIN 5 MG TABLETS PO PRN (21:54)
[2019-04-01] MEDS ORDERED: chlordiazePOXIDE HCL 10 MG CAPSULE PO PRN
[2019-04-01] MEDS ORDERED: chlordiazePOXIDE HCL 10 MG CAPSULE PO SCH (05:00)
[2019-04-01] MEDS: METHOCARBAMOL 500 MG TABLET PO PRN (05:59)
[2019-04-01] MEDS ORDERED: METHADONE HCL 5 MG TABLET (FOR DETOX USE ONLY) PO ONE (06:00)
--- NOTE | 2019-04-01 09:34 | DS ---
[facility] Detox Discharge Summary Admission Date: 03/29/19 Discharge Date: 04/01/19 - History Present History: Alcohol Dependence, Cocaine Dependence, Opioid Dependence - Physical Exam Results Vital Signs: Vital Signs Temperature 98.4 F 04/01/19 06:00 Pulse Rate 69 04/01/19 06:00 Respiratory Rate 18 04/01/19 06:00 Blood Pressure 119/74 04/01/19 06:00 O2 Sat by Pulse Oximetry (%) - Treatment Hospital Course: Detox Protocol Followed, Detoxed Safely, Responded well, Discharged Condition Good - Medication Discharge Medications: Ambulatory Orders NK [No Known Home Medication] 06/03/16 - Diagnosis (1) Alcohol dependence with uncomplicated withdrawal Current Visit: Yes Status: Chronic (2) Cocaine dependence, uncomplicated Current Visit: Yes Status: Chronic (3) Nicotine dependence Current Visit: Yes Status: Chronic Qualifiers: Nicotine product type: cigarettes (4) Opioid dependence with withdrawal Current Visit: Yes Status: Chronic - AMA Did Patient Leave Against Medical Advice: No
[2019-04-01 09:49] VITALS: BP 110/63; PULSE 87; TEMP 98.1
[2019-04-01] MEDS: PRENATAL VITAMINS W/ FOLIC ACID TABLET (FP) PO SCH (10:21)
[2019-04-02] MEDS ORDERED: chlordiazePOXIDE HCL 10 MG CAPSULE PO ONE (05:00)
== END 2019-04-01 11:08 | disposition home or self-care (01) | DRG 773 ==
LOC: YASAS 10:24 → Y6N 12:59
PROVIDERS: ADMIT Allergy & Immunology; ATTEND Allergy & Immunology
PROC: HZ2ZZZZ Detoxification Services for Substance Abuse Treatment (ICD-10-PCS; principal; 2019-03-29)
DX: F10.230 Alcohol dependence with withdrawal, uncomplicated (principal); F11.23 Opioid dependence with withdrawal; F14.20 Cocaine dependence, uncomplicated; F17.210 Nicotine dependence, cigarettes, uncomplicated; F32.9 Major depressive disorder, single episode, unspecified; Z86.69 Personal history of other diseases of the nervous system and sense organs; Z86.19 Personal history of other infectious and parasitic diseases; Z91.5 Personal history of self-harm
CPT/HCPCS: 36415; 80053; 81025; 85027; 86593; 87389

== ENCOUNTER 2019-06-03 16:23 | Inpatient (IN) | payer OTHER ==
[2019-06-03 17:42] VITALS: BMI 22.1
--- NOTE | 2019-06-03 19:23 | HP ---
COWS - Scale Resting Pulse: 0= [place] 80 or Below Sweatin=Flushed/Facial Moisture Restless Observation: 3= Extraneous Movement Pupil Size: 1= Pupils >than Normal (Pupils = 3 mm) Bone or Joint Aches: 1= Mild Discomfort Runny Nose/ Eye Tearin= Nasal Congestion GI Upset > 30mins: 2= Nausea/Diarrhea (no diarrhea) Tremor Observation: 2= Slight Tremor Visible Yawning Observation: 0= None Anxiety or Irritability: 1=Feels Anxious/Irritable Goose Flesh Skin: 0=Smooth Skin COWS Score: 13 CIWA Score Nausea/Vomitin Muscle Tremors: 3 Anxiety: 1-Mildly Anxious Agitation: 1-Slight > Activity Paroxysmal Sweats: 3 (Increased facial moisture) Orientation: 0-Oriented Tacttile Disturbances: 1-Very Mild Itch/Numbness Auditory Disturbances: 0-None Visual Disturbances: 0-None Headache: 2-Mild CIWA-Ar Total Score: 14 - Admission Criteria OASAS Guidelines: Admission for Medically Managed Detox: Requires at least one of the followin. CIWA greater than 12 2. Seizures within the past 24 hours 3. Delirium tremens within the past 24 hours 4. Hallucinations within the past 24 hours 5. Acute intervention needed for co occurring medical disorder 6. Acute intervention needed for co occurring psychiatric disorder 7. Severe withdrawal that cannot be handled at a lower level of care (continued vomiting, continued diarrhea, abnormal vital signs) requiring intravenous medication and/or fluids 8. Patient presents the following: CIWA greater than 12 Admission Criteria Met: Admission criteria met Admitting History and Physical - Past Medical History ...LMP: 12/12/18 - Smoking History Smoking history: Current every day smoker Have you smoked in the past 12 months: Yes Aproximately how many cigarettes per day: 10 - Alcohol/Substance Use Hx Alcohol Use: Yes Admission ROS BHS - HPI Chief Complaint: States "I want to be able to kick the alcohol and heroin properly" Allergies/Adverse Reactions: Allergies Allergy/AdvReac Type Severity Reaction Status Date / Time No Known Allergies Allergy Verified 06/03/19 17:33 History of Present Illness: 28 year old presents with c/o alcohol and heroin withdrawal seeking admission to detox. States was supposed to go to out-patient Suboxone maintenance on 06/02/19, but didn't follow through. Patient was just discharged from detox here at [facility] on 04/01/19. States relapsed two weeks ago. Hx alcohol induced seizures - 3 years ago. One overdose in 2017. MYNOR: 0.0 UTox: + gale/opi/bzo/fen HCG: Neg Encouraged to consider MAT for opioid use disorder. Heroin use since age 25. Current use 7-8 bags/day. Nasal. States last used this a.m. Alcohol use since age 12. Current use is 8-10 - 12/16 oz beers daily. Drinking 1 -2 nips hard liquor/day. Last drink today. Cocaine use since age 25. Cocaine use 2-3 x/week. Nicotine use since age 11. Currently smoking about 1/2 PPD. Declines nicotine patch - prefers nicotine gum. 12/27/2018: TB Gold test neg. 12/26/2018: EKG: NSR 03/30/19: RPR: Nonreactive Reports 5 years of sobriety age [age]. PMHx: Genital Herpes (recent flare-up 1 month ago), Alcohol related seizure: MHHx: Mild depression - states r/t drugs. Denies thoughts of harming self or others. Patient Name: Rosa Isela Larkin Date: 1990 Address: [address] [place] [address] Sex: Female Rx Written Rx Dispensed Drug Quantity Days Supply Prescriber Name 05/21/2019 05/21/2019 buprenorphine-naloxone 8-2 mg sl tablet 10 5 Ramiro Lowery Patient Name: Rosa Isela Larkin Date: 1990 Address: [place] [address] Sex: Female Rx Written Rx Dispensed Drug Quantity Days Supply Prescriber Name 04/12/2019 04/12/2019 chlordiazepoxide 25 mg capsule 8 2 Doc Hannon 02/09/2019 02/10/2019 chlordiazepoxide 25 mg capsule 8 2 Freida Chamberlain MD 05/24/2018 06/04/2018 chlordiazepoxide 25 mg capsule 8 2 Kwaku Bronson ( FLAKO) Exam Limitations: No Limitations - Ebola screening Have you traveled outside of the country in the last 21 days: No (N) Have you had contact with anyone from an Ebola affected area: No Have you been sick,other than usual withdrawal symptoms: No Do you have a fever: No - Review of Systems Constitutional: Changes in sleep (Diddiculty falling and staying asleep. Drinks to fall asleep), Unintentional Wgt. Loss EENT: reports: No Symptoms Reported Respiratory: reports: No Symptoms reported Cardiac: reports: Palpitations (When stops drinking) GI: reports: Nausea, Poor Appetite (Acid reflux (sometimes)) : reports: Frequency (When drinks alcohol) Musculoskeletal: reports: Back Pain (r/t withdrawal), Joint Pain (r/t withdrawal ) Integumentary: reports: No Symptoms Reported Neuro: reports: Headache (Slight temporal headache and over (L) eye area), Tremors Endocrine: reports: Increased Thirst Hematology: reports: No Symptoms Reported Psychiatric: reports: Judgement Intact, Mood/Affect Appropiate, Orientated x3, Anxious, Depressed (Denies thoughts of harming self or others) Patient History - Patient Medical History Hx Anemia: No Hx Asthma: No Hx Chronic Obstructive Pulmonary Disease (COPD): No Hx Cancer: No Hx Cardiac Disorders: No Hx Congestive Heart Failure: No Hx Hypertension: No Hx Hypercholesterolemia: No Hx Pacemaker: No HX Cerebrovascular Accident: No Hx Seizures: Yes (Not on medication) Hx Diabetes: No Hx Gastrointestinal Disorders: No Hx Liver Disease: No Hx Genitourinary Disorders: No Hx Sexually Transmitted Disorders: Yes (Herpes at age of 13 - Not treared) Hx Renal Disease (ESRD): No Hx Thyroid Disease: No Hx Human Immunodeficiency Virus (HIV): No Hx Hepatitis C: No Hx Depression: Yes (Not on medication) Hx Suicide Attempt: Yes (Attempt in Jul 2015 by hanging. Denies suicidal ideation now) Hx Bipolar Disorder: No Hx Schizophrenia: No - Patient Surgical History Past Surgical History: Yes Hx Neurologic Surgery: No Hx Cataract Extraction: No Hx Cardiac Surgery: No Hx Lung Surgery: No Hx Breast Surgery: No Hx Breast Biopsy: No Hx Abdominal Surgery: No Hx Appendectomy: No Hx Cholecystectomy: No Hx Genitourinary Surgery: No Hx Section: No Hx Orthopedic Surgery: Yes (right femur Fx 2012) Hx Hysterectomy: No Anesthesia Reaction: No - PPD History Previous Implant?: Yes (TB Gold/Quantiferon) Documented Results: Negative w/proof Implanted On Prior [facility] Admission?: Yes Date: 12/27/18 (TB Gold/Quantiferon) Results: Neg PPD to be Administered?: No - Reproductive History Patient is a Female of Child Bearing Age (11 -55 yrs old): Yes Last Menstrual Period: 05/20/19 Patient : No - Smoking Cessation Smoking history: Current every day smoker Have you smoked in the past 12 months: Yes Aproximately how many cigarettes per day: 10 Cigars Per Day: 0 Hx Chewing Tobacco Use: No Initiated information on smoking cessation: Yes 'Breaking Loose' booklet given: 06/03/19 - Substance & Tx. History Hx Alcohol Use: Yes Hx Substance Use: Yes Substance Use Type: Alcohol, Cocaine, Heroin Hx Substance Use Treatment: Yes (detox, ) - Substances abused Alcohol Substance route: Oral Frequency: Daily Amount used: 8 cans of beers & 1 nibs of vodka Age of first use: 12 Date of last use: 06/03/19 Heroin Substance route: Inhalation Frequency: Daily Amount used: 7-8 Age of first use: 25 Date of last use: 06/03/19 Cocaine Substance route: Inhalation Frequency: 3-6 times per week Amount used: $30-40 Age of first use: 25 Date of last use: 05/31/19 Admission Physical Exam S - Vital Signs Vital Signs: Vital Signs - 24 hr 06/03/19 17:32 Temperature 97.8 F Pulse Rate 65 Respiratory 16 Rate Blood Pressure 111/66 - Physical General Appearance: Yes: Nourished, Mild Distress, Tremorous (Mild), Sweating ( Increased facial moisture), Anxious HEENTM: Yes: EOMI, Hearing grossly Normal, Normocephalic, Normal Voice, IVNH ( Pupils = 3 mm), Pharynx Normal Respiratory: Yes: Lungs Clear (Pulse Ox = 99 %), Normal Breath Sounds, No Respiratory Distress Neck: Yes: No masses,lesions,Nodules, Supple Breast: Yes: Breast Exam Deferred Cardiology: Yes: Regular Rhythm, Regular Rate, S1, S2 Abdominal: Yes: Non Tender, Flat, Soft, Increased Bowel Sounds Genitourinary: Yes: Within Normal Limits Back: Yes: Normal Inspection Musculoskeletal: Yes: full range of Motion, Gait Steady Extremities: Yes: Normal Capillary Refill (Peripheral pulses +. No edema), Tremors (Mild) Neurological: Yes: head of talent management II-XII NML intact, Fully Oriented, Alert, Motor Strength 5/5, Normal Response Integumentary: Yes: Normal Color, Warm, Moist (Increased facial moisture) Lymphatic: Yes: Within Normal Limits - Diagnostic (1) Alcohol dependence with uncomplicated withdrawal Current Visit: Yes Status: Acute (2) Cocaine dependence, uncomplicated Current Visit: Yes Status: Chronic (3) History of herpes genitalis Current Visit: Yes Status: Chronic Comment: Last outbreak 1 month ago (4) Nicotine dependence Current Visit: Yes Status: Chronic Qualifiers: Nicotine product type: cigarettes Substance use status: uncomplicated Qualified Code(s): F17.210 - Nicotine dependence, cigarettes, uncomplicated (5) Opioid dependence with withdrawal Current Visit: Yes Status: Acute Cleared for Admission [facility] - Detox or Rehab [facility] Level of Care: Medically Managed Detox Regimen/Protocol: Methadone/Librium Claeared for Rehab Admission: No Breathalyzer - Breathalyzer Breathalyzer: 0.056 Urine Drug Screen - Test Device Lot number: [id number] Expiration date: 01/05/21 - Control Is test valid?: Yes - Results Drug screen NEGATIVE: No Urine drug screen results: GALE-Cocaine, FEN-Fentanyl, MOP-Opiates, BZO- Benzodiazepines Inpatient Rehab Admission - Rehab Decision to Admit Inpatient rehab admission?: No
[2019-06-03] MEDS ORDERED: MAG HYDROX/AL HYDROX/SIMETH 30 ML UNIT-DOSE CUP PO PRN (20:03)
[2019-06-03] MEDS ORDERED: ACETAMINOPHEN 325 MG TABLET (FP) PO PRN ×2 (20:03)
[2019-06-03] MEDS ORDERED: BISMUTH SUBSALICYLATE 524 MG/30 ML UD PO PRN (20:03)
[2019-06-03] MEDS ORDERED: NICOTINE POLACRILEX 2 MG GUM BUC PRN (20:03)
[2019-06-03] MEDS ORDERED: MAGNESIUM CITRATE 300 ML BOTTLE PO PRN (20:03)
[2019-06-03] MEDS ORDERED: MAGNESIUM HYDROX 2400MG/30ML ORAL SUSPENSION 30 ML CUP PO PRN (20:03)
[2019-06-03] MEDS ORDERED: IBUPROFEN 400 MG TABLET (FP) PO PRN (20:03)
[2019-06-03] MEDS ORDERED: MENTHOL/PHENOL 1 EACH UD MM PRN (20:03)
[2019-06-03] MEDS ORDERED: METHADONE HCL 10 MG TABLET (FOR DETOX USE ONLY) PO ONE (21:00)
[2019-06-03] MEDS: THIAMINE HCL 100 MG TABLET (FP) PO SCH (21:56)
[2019-06-03] MEDS: chlordiazePOXIDE HCL 25 MG CAPSULE PO SCH (21:57)
[2019-06-04] MEDS: chlordiazePOXIDE HCL 25 MG CAPSULE PO SCH ×3 (05:25→21:41)
[2019-06-04] MEDS ORDERED: METHADONE HCL 5 MG TABLET (FOR DETOX USE ONLY) PO ONE (10:00)
[2019-06-04] MEDS: PRENATAL VITAMINS W/ FOLIC ACID TABLET (FP) PO SCH (10:13)
[2019-06-04] MEDS: chlordiazePOXIDE HCL 10 MG CAPSULE PO PRN ×2 (10:14→18:48)
--- NOTE | 2019-06-04 11:27 | PN ---
[facility] CIWA - CIWA Score Nausea/Vomitin-No Nausea/No Vomiting Muscle Tremors: 2 Anxiety: 3 Agitation: 1-Slight > Activity Paroxysmal Sweats: 3 Orientation: 0-Oriented Tacttile Disturbances: 0-None Auditory Disturbances: 0-None Visual Disturbances: 0-None Headache: 2-Mild CIWA-Ar Total Score: 11 BHS COWS - Scale Resting Pulse: 0= [place] 80 or Below Sweatin= Beads of Sweat on Face Restless Observation: 1= Difficult to Sit Still Pupil Size: 0= Normal to Room Light Bone or Joint Aches: 2= Severe Diffuse Aches Runny Nose/ Eye Tearin= None GI Upset > 30mins: 0= None Tremor Observation of Outstretched Hands: 2= Slight Tremor Visible Yawning Observation: 1= 1-2x During Session Anxiety or Irritability: 2=Irritable/Anxious Goose Flesh Skin: 0=Smooth Skin COWS Score: 11 S Progress Note (SOAP) Subjective: c/o chills, sweats, headache, muscle aches, and anxiety. Objective: 06/04/19 11:26 Vital Signs 06/04/19 06/04/19 06/04/19 03:30 06:46 09:21 Temperature 97.6 F 98.5 F Pulse Rate 69 68 Respiratory 18 18 18 Rate Blood Pressure 107/69 112/70 Labs pending. Assessment: 06/04/19 11:26 AOx3, in no acute respiratory distress. Full rom, ambulating in the unit. Withdrawal symptoms. Pt request for HIV test. Plan: Continue detox. Order HIV test.
[2019-06-04 12:38] LABS: HEMATOCRIT 37.7 % (32.4-45.2); HEMOGLOBIN 12.6 GM/dL (10.7-15.3); MCH 31.6 pg (25.7-33.7); MCHC 33.4 g/dl (32.0-36.0); MEAN CELL VOLUME 94.5 fl (80-96); PLATELET COUNT 184 K/MM3 (134-434); RBC 3.99 M/mm3 (3.60-5.2); RDW 12.8 % (11.6-15.6); WHITE BLOOD COUNT 4.9 K/mm3 (4.0-10.0)
[2019-06-04 13:01] LABS: ALBUMIN 3.2 g/dl (3.4-5.0); BILIRUBIN,TOTAL 0.7 mg/dL (0.2-1); BLOOD UREA NITROGEN 7.5 mg/dL (7-18); CALCIUM 8.5 mg/dL (8.5-10.1); CREATININE 0.7 mg/dL (0.55-1.3); POTASSIUM 4.1 mmol/L (3.5-5.1); TOT PROT 6.1 g/dl (6.4-8.2)
[2019-06-04 17:19] LABS: PH,URINE 6.5 (5.0-8.0); URINE APPEARANCE CLEAR; URINE BILIRUBIN NEGATIVE (NEGATIVE); URINE COLOR YELLOW; URINE GLUCOSE (UA) NEGATIVE (NEGATIVE); URINE KETONE NEGATIVE (NEGATIVE); URINE LEUK ESTERASE NEGATIVE (NEGATIVE); URINE NITRITE NEGATIVE (NEGATIVE); URINE PROTEIN NEGATIVE (NEGATIVE)
[2019-06-04] MEDS: METHOCARBAMOL 500 MG TABLET PO PRN (18:50)
[2019-06-04] MEDS: MELATONIN 5 MG TABLETS PO PRN (21:41)
[2019-06-04] MEDS: THIAMINE HCL 100 MG TABLET (FP) PO SCH (21:41)
[2019-06-05] MEDS: chlordiazePOXIDE 5 MG CAPSULE PO SCH ×3 (05:57→21:48)
[2019-06-05] MEDS ORDERED: METHADONE HCL 10 MG TABLET (FOR DETOX USE ONLY) PO ONE (10:00)
[2019-06-05] MEDS: PRENATAL VITAMINS W/ FOLIC ACID TABLET (FP) PO SCH (10:14)
[2019-06-05] MEDS: chlordiazePOXIDE HCL 10 MG CAPSULE PO PRN (10:16)
[2019-06-05] MEDS: METHOCARBAMOL 500 MG TABLET PO PRN ×2 (10:16→21:49)
--- NOTE | 2019-06-05 11:38 | PN ---
[facility] CIWA - CIWA Score Nausea/Vomitin-No Nausea/No Vomiting Muscle Tremors: 2 Anxiety: 2 Agitation: 2 Paroxysmal Sweats: 1-Minimal Palms Moist Orientation: 0-Oriented Tacttile Disturbances: 0-None Auditory Disturbances: 0-None Visual Disturbances: 0-None Headache: 1-Very Mild CIWA-Ar Total Score: 8 BHS COWS - Scale Resting Pulse: 0= [place] 80 or Below Sweatin= Chills/Flushing Restless Observation: 0= Sits Still Pupil Size: 1= Pupils >than Normal Bone or Joint Aches: 1= Mild Discomfort Runny Nose/ Eye Tearin= Nasal Congestion GI Upset > 30mins: 1= Stomach Cramp Tremor Observation of Outstretched Hands: 2= Slight Tremor Visible Yawning Observation: 0= None Anxiety or Irritability: 1=Feels Anxious/Irritable Goose Flesh Skin: 0=Smooth Skin COWS Score: 8 S Progress Note (SOAP) Subjective: 28 years old female admitted on 06/03/19 for alcohol and opiate withdrawal sx management treating with librium and methadone detox regimens ate breakfast no trouble chewing nor swallowing tolerated ensure well Objective: 06/05/19 11:38 Vital Signs Temperature 98.3 F 06/05/19 09:09 Pulse Rate 65 06/05/19 09:09 Respiratory Rate 18 06/05/19 09:09 Blood Pressure 105/69 06/05/19 09:09 O2 Sat by Pulse Oximetry (%) Laboratory Last Values WBC 4.9 K/mm3 (4.0-10.0) 06/04/19 07:30 RBC 3.99 M/mm3 (3.60-5.2) 06/04/19 07:30 Hgb 12.6 GM/dL (10.7-15.3) 06/04/19 07:30 Hct 37.7 % (32.4-45.2) 06/04/19 07:30 MCV 94.5 fl (80-96) 06/04/19 07:30 MCH 31.6 pg (25.7-33.7) 06/04/19 07:30 MCHC 33.4 g/dl (32.0-36.0) 06/04/19 07:30 RDW 12.8 % (11.6-15.6) 06/04/19 07:30 Plt Count 184 K/MM3 (134-434) 06/04/19 07:30 MPV 10.0 fl (7.5-11.1) 06/04/19 07:30 Sodium 140 mmol/L (136-145) 06/04/19 07:30 Potassium 4.1 mmol/L (3.5-5.1) 06/04/19 07:30 Chloride 107 mmol/L (98-107) 06/04/19 07:30 Carbon Dioxide 30 mmol/L (21-32) 06/04/19 07:30 Anion Gap 4 MMOL/L (8-16) L 06/04/19 07:30 BUN 7.5 mg/dL (7-18) 06/04/19 07:30 Creatinine 0.7 mg/dL (0.55-1.3) 06/04/19 07:30 Est GFR (CKD-EPI)AfAm 135.70 06/04/19 07:30 Est GFR (CKD-EPI)NonAf 117.08 06/04/19 07:30 Random Glucose 86 mg/dL (74-106) 06/04/19 07:30 Calcium 8.5 mg/dL (8.5-10.1) 06/04/19 07:30 Total Bilirubin 0.7 mg/dL (0.2-1) 06/04/19 07:30 AST 28 U/L (15-37) 06/04/19 07:30 ALT 40 U/L (13-61) 06/04/19 07:30 Alkaline Phosphatase 85 U/L (45-117) 06/04/19 07:30 Total Protein 6.1 g/dl (6.4-8.2) L 06/04/19 07:30 Albumin 3.2 g/dl (3.4-5.0) L 06/04/19 07:30 Urine Color Yellow 06/04/19 10:18 Urine Appearance Clear 06/04/19 10:18 Urine pH 6.5 (5.0-8.0) 06/04/19 10:18 Ur Specific [place] 1.019 (1.010-1.035) 06/04/19 10:18 Urine Protein Negative (NEGATIVE) 06/04/19 10:18 Urine Glucose (UA) Negative (NEGATIVE) 06/04/19 10:18 Urine Ketones Negative (NEGATIVE) 06/04/19 10:18 Urine Blood Negative (NEGATIVE) 06/04/19 10:18 Urine Nitrite Negative (NEGATIVE) 06/04/19 10:18 Urine Bilirubin Negative (NEGATIVE) 06/04/19 10:18 Urine Urobilinogen 1.0 mg/dL (0.2-1.0) 06/04/19 10:18 Ur Leukocyte Esterase Negative (NEGATIVE) 06/04/19 10:18 POC Urine HCG, Qual Negative 06/03/19 10:18 HIV 1&2 Antibody Screen Negative 06/05/19 06:00 HIV P24 Antigen Negative 06/05/19 06:00 lab noted Assessment: 06/05/19 11:38 alcohol and opiate withdrawal Plan: librium and methadone regimens encourage pickler helper narcan from pharmacy
[2019-06-05] MEDS: THIAMINE HCL 100 MG TABLET (FP) PO SCH (21:47)
[2019-06-05] MEDS: MELATONIN 5 MG TABLETS PO PRN (21:48)
[2019-06-06] MEDS ORDERED: chlordiazePOXIDE HCL 10 MG CAPSULE PO PRN
[2019-06-06] MEDS: chlordiazePOXIDE HCL 10 MG CAPSULE PO SCH ×2 (05:29→15:15)
[2019-06-06] MEDS ORDERED: METHADONE HCL 5 MG TABLET (FOR DETOX USE ONLY) PO ONE (06:00)
[2019-06-06] MEDS: PRENATAL VITAMINS W/ FOLIC ACID TABLET (FP) PO SCH (10:41)
[2019-06-06] MEDS: METHOCARBAMOL 500 MG TABLET PO PRN (10:55)
--- NOTE | 2019-06-06 12:00 | PN ---
S CIWA - CIWA Score Nausea/Vomitin-No Nausea/No Vomiting Muscle Tremors: 2 Anxiety: 2 Agitation: 1-Slight > Activity Paroxysmal Sweats: 1-Minimal Palms Moist Orientation: 0-Oriented Tacttile Disturbances: 0-None Auditory Disturbances: 0-None Visual Disturbances: 0-None Headache: 0-None Present CIWA-Ar Total Score: 6 BHS COWS - Scale Resting Pulse: 0= [place] 80 or Below Sweatin= Chills/Flushing Restless Observation: 0= Sits Still Pupil Size: 0= Normal to Room Light Bone or Joint Aches: 1= Mild Discomfort Runny Nose/ Eye Tearin= Nasal Congestion GI Upset > 30mins: 1= Stomach Cramp Tremor Observation of Outstretched Hands: 1= Tremor [place], Not Seen Yawning Observation: 0= None Anxiety or Irritability: 1=Feels Anxious/Irritable Goose Flesh Skin: 0=Smooth Skin COWS Score: 6 S Progress Note (SOAP) Subjective: 28 years old female admitted on 06/03/19 for alcohol and opiate withdrawal sx management treating with librium and methadone detox regimens feeling better today less tremor sleep better last night Objective: 06/06/19 12:00 Vital Signs Temperature 97.9 F 06/06/19 09:05 Pulse Rate 70 06/06/19 09:05 Respiratory Rate 18 06/06/19 09:05 Blood Pressure 108/74 06/06/19 09:05 O2 Sat by Pulse Oximetry (%) Laboratory Last Values WBC 4.9 K/mm3 (4.0-10.0) 06/04/19 07:30 RBC 3.99 M/mm3 (3.60-5.2) 06/04/19 07:30 Hgb 12.6 GM/dL (10.7-15.3) 06/04/19 07:30 Hct 37.7 % (32.4-45.2) 06/04/19 07:30 MCV 94.5 fl (80-96) 06/04/19 07:30 MCH 31.6 pg (25.7-33.7) 06/04/19 07:30 MCHC 33.4 g/dl (32.0-36.0) 06/04/19 07:30 RDW 12.8 % (11.6-15.6) 06/04/19 07:30 Plt Count 184 K/MM3 (134-434) 06/04/19 07:30 MPV 10.0 fl (7.5-11.1) 06/04/19 07:30 Sodium 140 mmol/L (136-145) 06/04/19 07:30 Potassium 4.1 mmol/L (3.5-5.1) 06/04/19 07:30 Chloride 107 mmol/L (98-107) 06/04/19 07:30 Carbon Dioxide 30 mmol/L (21-32) 06/04/19 07:30 Anion Gap 4 MMOL/L (8-16) L 06/04/19 07:30 BUN 7.5 mg/dL (7-18) 06/04/19 07:30 Creatinine 0.7 mg/dL (0.55-1.3) 06/04/19 07:30 Est GFR (CKD-EPI)AfAm 135.70 06/04/19 07:30 Est GFR (CKD-EPI)NonAf 117.08 06/04/19 07:30 Random Glucose 86 mg/dL (74-106) 06/04/19 07:30 Calcium 8.5 mg/dL (8.5-10.1) 06/04/19 07:30 Total Bilirubin 0.7 mg/dL (0.2-1) 06/04/19 07:30 AST 28 U/L (15-37) 06/04/19 07:30 ALT 40 U/L (13-61) 06/04/19 07:30 Alkaline Phosphatase 85 U/L (45-117) 06/04/19 07:30 Total Protein 6.1 g/dl (6.4-8.2) L 06/04/19 07:30 Albumin 3.2 g/dl (3.4-5.0) L 06/04/19 07:30 Urine Color Yellow 06/04/19 10:18 Urine Appearance Clear 06/04/19 10:18 Urine pH 6.5 (5.0-8.0) 06/04/19 10:18 Ur Specific [place] 1.019 (1.010-1.035) 06/04/19 10:18 Urine Protein Negative (NEGATIVE) 06/04/19 10:18 Urine Glucose (UA) Negative (NEGATIVE) 06/04/19 10:18 Urine Ketones Negative (NEGATIVE) 06/04/19 10:18 Urine Blood Negative (NEGATIVE) 06/04/19 10:18 Urine Nitrite Negative (NEGATIVE) 06/04/19 10:18 Urine Bilirubin Negative (NEGATIVE) 06/04/19 10:18 Urine Urobilinogen 1.0 mg/dL (0.2-1.0) 06/04/19 10:18 Ur Leukocyte Esterase Negative (NEGATIVE) 06/04/19 10:18 POC Urine HCG, Qual Negative 06/03/19 10:18 HIV 1&2 Antibody Screen Negative 06/05/19 06:00 HIV P24 Antigen Negative 06/05/19 06:00 lab noted Assessment: 06/06/19 12:00 alcohol and opiate withdrawal Plan: librium and methadone regimens
[2019-06-06 13:39] VITALS: BP 96/63; PULSE 64; TEMP 98.6
--- NOTE | 2019-06-06 15:14 | DS ---
[facility] Detox Discharge Summary Admission Date: 06/03/19 Discharge Date: 06/06/19 - History Present History: Alcohol Dependence, Opioid Dependence Additional Comments: 28 years old female admitted on 06/03/19 for alcohhol and opiate withdrawal sx management treated with librium and methadone detox regimen patient tolerated well alert oriented x 3 cardiac s1s2 regular rate rhythm respiratory clear lung bilaterally on auscultation extremities full range of motion Pertinent Past History: patient prefers to leave the detox one day early as per estimated discharge date of 06/07/19 case discussed with the nurse routine discharge is appropriated - Physical Exam Results Vital Signs: Vital Signs Temperature 98.6 F 06/06/19 13:38 Pulse Rate 64 06/06/19 13:38 Respiratory Rate 16 06/06/19 13:38 Blood Pressure 96/63 06/06/19 13:38 O2 Sat by Pulse Oximetry (%) Pertinent Admission Physical Exam Findings: alcohol and opiate withdrawal Laboratory Last Values WBC 4.9 K/mm3 (4.0-10.0) 06/04/19 07:30 RBC 3.99 M/mm3 (3.60-5.2) 06/04/19 07:30 Hgb 12.6 GM/dL (10.7-15.3) 06/04/19 07:30 Hct 37.7 % (32.4-45.2) 06/04/19 07:30 MCV 94.5 fl (80-96) 06/04/19 07:30 MCH 31.6 pg (25.7-33.7) 06/04/19 07:30 MCHC 33.4 g/dl (32.0-36.0) 06/04/19 07:30 RDW 12.8 % (11.6-15.6) 06/04/19 07:30 Plt Count 184 K/MM3 (134-434) 06/04/19 07:30 MPV 10.0 fl (7.5-11.1) 06/04/19 07:30 Sodium 140 mmol/L (136-145) 06/04/19 07:30 Potassium 4.1 mmol/L (3.5-5.1) 06/04/19 07:30 Chloride 107 mmol/L (98-107) 06/04/19 07:30 Carbon Dioxide 30 mmol/L (21-32) 06/04/19 07:30 Anion Gap 4 MMOL/L (8-16) L 06/04/19 07:30 BUN 7.5 mg/dL (7-18) 06/04/19 07:30 Creatinine 0.7 mg/dL (0.55-1.3) 06/04/19 07:30 Est GFR (CKD-EPI)AfAm 135.70 06/04/19 07:30 Est GFR (CKD-EPI)NonAf 117.08 06/04/19 07:30 Random Glucose 86 mg/dL (74-106) 06/04/19 07:30 Calcium 8.5 mg/dL (8.5-10.1) 06/04/19 07:30 Total Bilirubin 0.7 mg/dL (0.2-1) 06/04/19 07:30 AST 28 U/L (15-37) 06/04/19 07:30 ALT 40 U/L (13-61) 06/04/19 07:30 Alkaline Phosphatase 85 U/L (45-117) 06/04/19 07:30 Total Protein 6.1 g/dl (6.4-8.2) L 06/04/19 07:30 Albumin 3.2 g/dl (3.4-5.0) L 06/04/19 07:30 Urine Color Yellow 06/04/19 10:18 Urine Appearance Clear 06/04/19 10:18 Urine pH 6.5 (5.0-8.0) 06/04/19 10:18 Ur Specific [place] 1.019 (1.010-1.035) 06/04/19 10:18 Urine Protein Negative (NEGATIVE) 06/04/19 10:18 Urine Glucose (UA) Negative (NEGATIVE) 06/04/19 10:18 Urine Ketones Negative (NEGATIVE) 06/04/19 10:18 Urine Blood Negative (NEGATIVE) 06/04/19 10:18 Urine Nitrite Negative (NEGATIVE) 06/04/19 10:18 Urine Bilirubin Negative (NEGATIVE) 06/04/19 10:18 Urine Urobilinogen 1.0 mg/dL (0.2-1.0) 06/04/19 10:18 Ur Leukocyte Esterase Negative (NEGATIVE) 06/04/19 10:18 POC Urine HCG, Qual Negative 06/03/19 10:18 HIV 1&2 Antibody Screen Negative 06/05/19 06:00 HIV P24 Antigen Negative 06/05/19 06:00 lab noted - Treatment Hospital Course: Detox Protocol Followed, Detoxed Safely, Responded well, Discharged Condition Good, Rehab Referral Accepted Patient has Accepted a Rehab Referral to: community support approach - Medication Discharge Medications: Ambulatory Orders Naloxone HCl [Narcan] 4 mg NS ASDIR PRN #1 spray 06/05/19 - Diagnosis (1) Alcohol dependence with uncomplicated withdrawal Current Visit: Yes Status: Acute (2) Opioid dependence with withdrawal Current Visit: Yes Status: Acute (3) Nicotine dependence Current Visit: Yes Status: Acute Qualifiers: Nicotine product type: cigarettes Substance use status: in withdrawal Qualified Code(s): F17.213 - Nicotine dependence, cigarettes, with withdrawal (4) Substance induced mood disorder Current Visit: Yes Status: Suspected (5) Weight loss Current Visit: Yes Status: Acute - AMA Did Patient Leave Against Medical Advice: No CIWA Score - CIWA Score Nausea/Vomitin-No Nausea/No Vomiting Muscle Tremors: 1-None Visible, but [place] Anxiety: 1-Mildly Anxious Agitation: 1-Slight > Activity Paroxysmal Sweats: No Perspiration Orientation: 0-Oriented Tacttile Disturbances: 0-None Auditory Disturbances: 0-None Visual Disturbances: 0-None Headache: 0-None Present CIWA-Ar Total Score: 3 COWS (PN) - Opiate Withdrawal Resting Pulse: 0= [place] 80 or Below Sweatin= Chills/Flushing Restless Observation: 0= Sits Still Pupil Size: 0= Normal to Room Light Bone or Joint Aches: 0= None Runny Nose/ Eye Tearin= None GI Upset > 30mins: 0= None Tremor Observation of Outstretched Hands: 1= Tremor [place], Not Seen Yawning Observation: 0= None Anxiety or Irritability: 1=Feels Anxious/Irritable Goose Flesh Skin: 0=Smooth Skin COWS Score: 3
[2019-06-07] MEDS ORDERED: chlordiazePOXIDE HCL 10 MG CAPSULE PO ONE (05:00)
== END 2019-06-06 12:35 | disposition home or self-care (01) | DRG 773 ==
LOC: YASAS 16:23 → Y3N 20:38
PROVIDERS: ADMIT Allergy & Immunology; ATTEND Allergy & Immunology
PROC: HZ2ZZZZ Detoxification Services for Substance Abuse Treatment (ICD-10-PCS; principal; 2019-06-03)
DX: F11.23 Opioid dependence with withdrawal (principal); F10.230 Alcohol dependence with withdrawal, uncomplicated; F14.20 Cocaine dependence, uncomplicated; F17.213 Nicotine dependence, cigarettes, with withdrawal; F19.24 Other psychoactive substance dependence with psychoactive substance-induced mood disorder; R63.4 Abnormal weight loss; Z87.42 Personal history of other diseases of the female genital tract; Z86.59 Personal history of other mental and behavioral disorders; Z86.69 Personal history of other diseases of the nervous system and sense organs; Z91.5 Personal history of self-harm
CPT/HCPCS: 36415; 80053; 81003; 81025; 85027; 87389

== ENCOUNTER 2019-07-17 11:19 | Inpatient (IN) | payer OTHER ==
[2019-07-17 12:45] VITALS: BMI 20.7
--- NOTE | 2019-07-17 14:53 | HP ---
COWS - Scale Resting Pulse: 1= [place] 81-100 Sweatin=Flushed/Facial Moisture Restless Observation: 1= Difficult to Sit Still Pupil Size: 2= Moderately Dilated Bone or Joint Aches: 2= Severe Diffuse Aches Runny Nose/ Eye Tearin= Runny Nose/Eyes GI Upset > 30mins: 2= Nausea/Diarrhea Tremor Observation: 2= Slight Tremor Visible Yawning Observation: 2= >3x During Session Anxiety or Irritability: 2=Irritable/Anxious Goose Flesh Skin: 3=Pil[place] COWS Score: 21 CIWA Score Nausea/Vomitin Muscle Tremors: 2 Anxiety: 3 Agitation: 2 Paroxysmal Sweats: 2 Orientation: 0-Oriented Tacttile Disturbances: 2-Mild Itch/Numbness/Burn Auditory Disturbances: 1-Very Mild Visual Disturbances: 1-Very Mild Sensitivity Headache: 2-Mild CIWA-Ar Total Score: 17 - Admission Criteria OASAS Guidelines: Admission for Medically Managed Detox: Requires at least one of the followin. CIWA greater than 12 2. Seizures within the past 24 hours 3. Delirium tremens within the past 24 hours 4. Hallucinations within the past 24 hours 5. Acute intervention needed for co occurring medical disorder 6. Acute intervention needed for co occurring psychiatric disorder 7. Severe withdrawal that cannot be handled at a lower level of care (continued vomiting, continued diarrhea, abnormal vital signs) requiring intravenous medication and/or fluids 8. Patient presents the following: CIWA greater than 12 Admission Criteria Met: Admission criteria met Admitting History and Physical - Past Medical History ...LMP: 05/20/19 - Smoking History Smoking history: Current every day smoker Have you smoked in the past 12 months: Yes Aproximately how many cigarettes per day: 10 - Alcohol/Substance Use Hx Alcohol Use: Yes Admission ROS [facility] Chief Complaint: I am sick, I am withdrawing Allergies/Adverse Reactions: Allergies Allergy/AdvReac Type Severity Reaction Status Date / Time No Known Allergies Allergy Verified 07/17/19 12:34 History of Present Illness: 28 year old woman with poly-substance use presents for detox from alcohol and heroin following observation at [facility] last night. According to patient, she did not receive any medication at [place]. Her last admission at [facility] was from 06/03/19 to 06/06/19 with multiple other admissions in the past. She has h/o seizure and blackouts related to intoxication. Exam Limitations: No Limitations - Ebola screening Have you traveled outside of the country in the last 21 days: No Have you had contact with anyone from an Ebola affected area: No Have you been sick,other than usual withdrawal symptoms: No Do you have a fever: No - Review of Systems Constitutional: Chills, Loss of Appetite, Malaise EENT: reports: Nose Congestion Respiratory: reports: SOB with Exertion GI: reports: Nausea, Abdominal cramping : reports: No Symptoms Reported Musculoskeletal: reports: Back Pain, Joint Pain, Muscle Pain, Muscle Weakness Integumentary: reports: Flushing, Sweating Endocrine: reports: No Symptoms Reported Hematology: reports: No Symptoms Reported Psychiatric: reports: Anxious, Depressed Other Systems: Reviewed and Negative Patient History - Patient Medical History Hx Anemia: No Hx Asthma: No Hx Chronic Obstructive Pulmonary Disease (COPD): No Hx Cancer: No Hx Cardiac Disorders: No Hx Congestive Heart Failure: No Hx Hypertension: No Hx Hypercholesterolemia: No Hx Pacemaker: No HX Cerebrovascular Accident: No Hx Seizures: Yes Hx Diabetes: No Hx Gastrointestinal Disorders: No Hx Liver Disease: No Hx Genitourinary Disorders: No Hx Sexually Transmitted Disorders: Yes (Herpes at age of 13 ) Hx Renal Disease (ESRD): No Hx Thyroid Disease: No Hx Human Immunodeficiency Virus (HIV): No Hx Hepatitis C: No Hx Depression: Yes (Not on medication) Hx Suicide Attempt: Yes (Attempt in Jul 2015 by hanging. Denies suicidal ideation now) Hx Bipolar Disorder: No Hx Schizophrenia: No - Patient Surgical History Past Surgical History: Yes Hx Neurologic Surgery: No Hx Cataract Extraction: No Hx Cardiac Surgery: No Hx Lung Surgery: No Hx Breast Surgery: No Hx Breast Biopsy: No Hx Abdominal Surgery: No Hx Appendectomy: No Hx Cholecystectomy: No Hx Genitourinary Surgery: No Hx Section: No Hx Orthopedic Surgery: Yes (right femur Fx 2012) Hx Hysterectomy: No Anesthesia Reaction: No - PPD History Previous Implant?: Yes Documented Results: Negative w/proof Implanted On Prior [facility] Admission?: Yes Date: 12/27/18 Results: Neg PPD to be Administered?: No - Reproductive History Patient is a Female of Child Bearing Age (11 -55 yrs old): Yes Last Menstrual Period: 06/19/19 Patient : No - Smoking Cessation Smoking history: Current every day smoker Have you smoked in the past 12 months: Yes Aproximately how many cigarettes per day: 10 Cigars Per Day: 0 Hx Chewing Tobacco Use: No Initiated information on smoking cessation: Yes 'Breaking Loose' booklet given: 07/17/19 - Substances abused Alcohol Substance route: Oral Frequency: Daily Amount used: 10 (12 0z beers) 2 Nips Age of first use: 12 Date of last use: 07/17/19 Heroin Substance route: Inhalation Frequency: Daily Amount used: 7-8bags Age of first use: 25 Date of last use: 07/16/19 Cocaine Substance route: Smoking Frequency: Daily Amount used: $50-$150 Age of first use: 14 Date of last use: 07/16/19 Admission Physical Exam [facility] - Vital Signs Vital Signs: Vital Signs - 24 hr 07/17/19 12:41 Temperature 97.5 F L Pulse Rate 84 Respiratory 16 Rate Blood Pressure 129/82 - Physical General Appearance: Yes: Mild Distress (from withdrawal sx) HEENTM: Yes: Within Normal Limits Respiratory: Yes: Chest Non-Tender, Lungs Clear, Normal Breath Sounds, No Respiratory Distress, No Accessory Muscle Use Neck: Yes: No masses,lesions,Nodules, Supple Breast: Yes: Breast Exam Deferred Cardiology: Yes: Regular Rhythm, Regular Rate, S1, S2 Abdominal: Yes: Normal Bowel Sounds, Non Tender Genitourinary: Yes: Within Normal Limits Back: Yes: Normal Inspection Musculoskeletal: Yes: Back pain, Muscle Pain, Muscle weakness Extremities: Yes: Tremors, Coldness Neurological: Yes: Alert, Normal Response Integumentary: Yes: [place] Lymphatic: Yes: Within Normal Limits - Diagnostic (1) Alcohol dependence with uncomplicated withdrawal Current Visit: Yes Status: Acute (2) Cocaine abuse Current Visit: Yes Status: Acute (3) Nicotine dependence Current Visit: Yes Status: Acute Qualifiers: Nicotine product type: cigarettes Substance use status: uncomplicated Qualified Code(s): F17.210 - Nicotine dependence, cigarettes, uncomplicated (4) Opioid dependence with withdrawal Current Visit: Yes Status: Acute (5) Cannabis dependence, uncomplicated Current Visit: Yes Status: Acute Cleared for Admission [facility] - Detox or Rehab [facility] Level of Care: Medically Managed Detox Regimen/Protocol: Methadone/Librium Claeared for Rehab Admission: No Breathalyzer - Breathalyzer Breathalyzer: 0.055 Urine Drug Screen - Test Device Lot number: [id number] Expiration date: 12/30/20 - Control Is test valid?: Yes - Results Drug screen NEGATIVE: No Urine drug screen results: CINDA-Cocaine, FEN-Fentanyl, MOP-Opiates, BZO- Benzodiazepines, BUP-Suboxone Inpatient Rehab Admission - Rehab Decision to Admit Inpatient rehab admission?: No
[2019-07-17] MEDS ORDERED: MAG HYDROX/AL HYDROX/SIMETH 30 ML UNIT-DOSE CUP PO PRN (15:00)
[2019-07-17] MEDS ORDERED: chlordiazePOXIDE HCL 10 MG CAPSULE PO PRN (15:00)
[2019-07-17] MEDS ORDERED: chlordiazePOXIDE HCL 25 MG CAPSULE PO ONE (15:00)
[2019-07-17] MEDS ORDERED: MAGNESIUM CITRATE 300 ML BOTTLE PO PRN (15:00)
[2019-07-17] MEDS ORDERED: MAGNESIUM HYDROX 2400MG/30ML ORAL SUSPENSION 30 ML CUP PO PRN (15:00)
[2019-07-17] MEDS ORDERED: cloNIDine HCL 0.1 MG TABLET PO PRN (15:00)
[2019-07-17] MEDS ORDERED: METHADONE HCL 10 MG TABLET (FOR DETOX USE ONLY) PO ONE (15:00)
[2019-07-17] MEDS ORDERED: NICOTINE POLACRILEX 2 MG GUM BUC PRN (15:00)
[2019-07-17] MEDS ORDERED: BISMUTH SUBSALICYLATE 524 MG/30 ML UD PO PRN (15:00)
[2019-07-17] MEDS ORDERED: ACETAMINOPHEN 325 MG TABLET (FP) PO PRN ×2 (15:00)
[2019-07-17] MEDS ORDERED: NALOXONE HCL 0.4 MG/ML VIAL IM PRN (15:00)
[2019-07-17] MEDS ORDERED: IBUPROFEN 400 MG TABLET (FP) PO PRN (15:00)
[2019-07-17] MEDS ORDERED: MENTHOL/PHENOL 1 EACH UD MM PRN (15:00)
[2019-07-17] MEDS: NICOTINE 14 MG/24 HOURS TOPICAL PATCH TD SCH (15:56)
[2019-07-17] MEDS: METHOCARBAMOL 500 MG TABLET PO PRN (18:03)
[2019-07-17] MEDS: THIAMINE HCL 100 MG TABLET (FP) PO SCH (22:29)
[2019-07-17] MEDS: chlordiazePOXIDE HCL 25 MG CAPSULE PO SCH (22:29)
[2019-07-18] MEDS: chlordiazePOXIDE HCL 25 MG CAPSULE PO SCH ×3 (06:08→22:14)
[2019-07-18] MEDS: METHOCARBAMOL 500 MG TABLET PO PRN ×3 (06:20→20:44)
[2019-07-18] MEDS ORDERED: METHADONE HCL 5 MG TABLET (FOR DETOX USE ONLY) ONE (09:17)
[2019-07-18] MEDS ORDERED: METHADONE HCL 10 MG TABLET (FOR DETOX USE ONLY) ONE (09:17)
[2019-07-18] MEDS ORDERED: METHADONE (DETOX) 20 MG, METHADONE (DETOX) 5 MG PO ONE (10:00)
[2019-07-18 10:14] LABS: ALBUMIN 3.2 g/dl (3.4-5.0); BILIRUBIN,TOTAL 0.6 mg/dL (0.2-1); BLOOD UREA NITROGEN 9.6 mg/dL (7-18); CREATININE 0.7 mg/dL (0.55-1.3); HEMATOCRIT 38.7 % (32.4-45.2); HEMOGLOBIN 13.5 GM/dL (10.7-15.3); MCH 32.2 pg (25.7-33.7); MCHC 34.8 g/dl (32.0-36.0); MEAN CELL VOLUME 92.6 fl (80-96); MEAN PLT VOLUME 9.7 fl (7.5-11.1); PLATELET COUNT 192 K/MM3 (134-434); POTASSIUM 4.3 mmol/L (3.5-5.1); RBC 4.18 M/mm3 (3.60-5.2); RDW 13.5 % (11.6-15.6); TOT PROT 6.7 g/dl (6.4-8.2); WHITE BLOOD COUNT 6.9 K/mm3 (4.0-10.0)
[2019-07-18] MEDS: PRENATAL VITAMINS W/ FOLIC ACID TABLET (FP) PO SCH (10:21)
[2019-07-18] MEDS: NICOTINE 14 MG/24 HOURS TOPICAL PATCH TD SCH (10:21)
--- NOTE | 2019-07-18 10:57 | PN ---
[facility] CIWA - CIWA Score Nausea/Vomitin-No Nausea/No Vomiting Muscle Tremors: 3 Anxiety: 3 Agitation: 3 Paroxysmal Sweats: 3 Orientation: 0-Oriented Tacttile Disturbances: 0-None Auditory Disturbances: 0-None Visual Disturbances: 0-None Headache: 0-None Present CIWA-Ar Total Score: 12 BHS COWS - Scale Resting Pulse: 0= [place] 80 or Below Sweatin= Chills/Flushing Restless Observation: 1= Difficult to Sit Still Pupil Size: 0= Normal to Room Light Bone or Joint Aches: 2= Severe Diffuse Aches Runny Nose/ Eye Tearin= None GI Upset > 30mins: 0= None Tremor Observation of Outstretched Hands: 2= Slight Tremor Visible Yawning Observation: 1= 1-2x During Session Anxiety or Irritability: 2=Irritable/Anxious Goose Flesh Skin: 0=Smooth Skin COWS Score: 9 BHS Progress Note (SOAP) Subjective: sweats shakes restless anxiety body aches restless poor appetite Objective: 07/18/19 10:56 Vital Signs Temperature 98.1 F 07/18/19 08:14 Pulse Rate 69 07/18/19 08:14 Respiratory Rate 16 07/18/19 08:57 Blood Pressure 115/65 07/18/19 08:14 O2 Sat by Pulse Oximetry (%) Laboratory Tests 07/17/19 07/18/19 07/18/19 13:34 08:00 08:00 WBC 6.9 RBC 4.18 Hgb 13.5 Hct 38.7 MCV 92.6 MCH 32.2 MCHC 34.8 RDW 13.5 Plt Count 192 MPV 9.7 Sodium 140 Potassium 4.3 Chloride 107 Carbon Dioxide 30 Anion Gap 3 L BUN 9.6 Creatinine 0.7 Est GFR (CKD-EPI)AfAm 135.70 Est GFR (CKD-EPI)NonAf 117.08 Random Glucose 105 Calcium 9.0 Total Bilirubin 0.6 AST 24 ALT 31 Alkaline Phosphatase 80 Total Protein 6.7 Albumin 3.2 L POC Urine HCG, Qual Negative aaox3 ambulating no acute distress Assessment: 07/18/19 10:57 withdrawals Plan: continue detox ensure plus BID visitril prn for anxiety
[2019-07-18] MEDS: THIAMINE HCL 100 MG TABLET (FP) PO SCH (22:14)
[2019-07-18] MEDS: MELATONIN 5 MG TABLETS PO PRN (22:14)
[2019-07-19] MEDS: chlordiazePOXIDE 5 MG CAPSULE PO SCH ×3 (05:22→21:32)
[2019-07-19] MEDS ORDERED: hydrOXYzine PAMOATE 50 MG CAPSULE (FP) PO PRN (08:34)
[2019-07-19] MEDS ORDERED: METHADONE HCL 10 MG TABLET (FOR DETOX USE ONLY) PO ONE (10:00)
--- NOTE | 2019-07-19 10:49 | PN ---
S CIWA - CIWA Score Nausea/Vomitin-No Nausea/No Vomiting Muscle Tremors: 3 Anxiety: 2 Agitation: 3 Paroxysmal Sweats: 2 Orientation: 0-Oriented Tacttile Disturbances: 0-None Auditory Disturbances: 0-None Visual Disturbances: 0-None Headache: 0-None Present CIWA-Ar Total Score: 10 BHS COWS - Scale Resting Pulse: 0= [place] 80 or Below Sweatin= Chills/Flushing Restless Observation: 1= Difficult to Sit Still Pupil Size: 0= Normal to Room Light Bone or Joint Aches: 1= Mild Discomfort Runny Nose/ Eye Tearin= None GI Upset > 30mins: 0= None Tremor Observation of Outstretched Hands: 1= Tremor [place], Not Seen Yawning Observation: 1= 1-2x During Session Anxiety or Irritability: 2=Irritable/Anxious Goose Flesh Skin: 0=Smooth Skin COWS Score: 7 BHS Progress Note (SOAP) Subjective: sweats shakes anxiety i need to see psych for my depression Objective: 07/19/19 10:52 Vital Signs Temperature 98.4 F 07/19/19 08:33 Pulse Rate 74 07/19/19 08:33 Respiratory Rate 19 07/19/19 08:33 Blood Pressure 112/59 L 07/19/19 08:33 O2 Sat by Pulse Oximetry (%) Laboratory Tests 07/17/19 07/18/19 07/18/19 13:34 08:00 08:00 WBC 6.9 RBC 4.18 Hgb 13.5 Hct 38.7 MCV 92.6 MCH 32.2 MCHC 34.8 RDW 13.5 Plt Count 192 MPV 9.7 Sodium 140 Potassium 4.3 Chloride 107 Carbon Dioxide 30 Anion Gap 3 L BUN 9.6 Creatinine 0.7 Est GFR (CKD-EPI)AfAm 135.70 Est GFR (CKD-EPI)NonAf 117.08 Random Glucose 105 Calcium 9.0 Total Bilirubin 0.6 AST 24 ALT 31 Alkaline Phosphatase 80 Total Protein 6.7 Albumin 3.2 L POC Urine HCG, Qual Negative RPR Titer 07/18/19 08:00 WBC RBC Hgb Hct MCV MCH MCHC RDW Plt Count MPV Sodium Potassium Chloride Carbon Dioxide Anion Gap BUN Creatinine Est GFR (CKD-EPI)AfAm Est GFR (CKD-EPI)NonAf Random Glucose Calcium Total Bilirubin AST ALT Alkaline Phosphatase Total Protein Albumin POC Urine HCG, Qual RPR Titer Nonreactive aaox3 ambulating no acute distress Assessment: 07/19/19 10:52 withdrawals Plan: continue detox visitiril 50mg prn increase fluids
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
[2019-07-19] MEDS: PRENATAL VITAMINS W/ FOLIC ACID TABLET (FP) PO SCH (12:49)
[2019-07-19] MEDS: NICOTINE 14 MG/24 HOURS TOPICAL PATCH TD SCH (12:50)
[2019-07-19] MEDS: hydrOXYzine PAMOATE 50 MG CAPSULE (FP) PO PRN ×2 (17:05→21:32)
[2019-07-19] MEDS: METHOCARBAMOL 500 MG TABLET PO PRN ×2 (17:05→23:47)
[2019-07-19] MEDS: THIAMINE HCL 100 MG TABLET (FP) PO SCH (21:32)
[2019-07-19] MEDS: MELATONIN 5 MG TABLETS PO PRN (21:32)
[2019-07-20] MEDS ORDERED: chlordiazePOXIDE HCL 10 MG CAPSULE PO PRN
[2019-07-20] MEDS: chlordiazePOXIDE HCL 10 MG CAPSULE PO SCH ×3 (06:14→21:54)
[2019-07-20] MEDS: hydrOXYzine PAMOATE 50 MG CAPSULE (FP) PO PRN ×3 (06:15→20:28)
[2019-07-20] MEDS ORDERED: METHADONE HCL 5 MG TABLET (FOR DETOX USE ONLY) ONE (08:43)
[2019-07-20] MEDS ORDERED: METHADONE HCL 10 MG TABLET (FOR DETOX USE ONLY) ONE (08:44)
[2019-07-20] MEDS: METHOCARBAMOL 500 MG TABLET PO PRN ×2 (08:49→20:28)
[2019-07-20] MEDS ORDERED: METHADONE (DETOX) 10 MG, METHADONE (DETOX) 5 MG PO ONE (10:00)
[2019-07-20] MEDS: PRENATAL VITAMINS W/ FOLIC ACID TABLET (FP) PO SCH (10:13)
[2019-07-20] MEDS: NICOTINE 14 MG/24 HOURS TOPICAL PATCH TD SCH (10:13)
--- NOTE | 2019-07-20 11:12 | PN ---
[facility] CIWA - CIWA Score Nausea/Vomitin-No Nausea/No Vomiting Muscle Tremors: 2 Anxiety: 1-Mildly Anxious Agitation: 1-Slight > Activity Paroxysmal Sweats: 1-Minimal Palms Moist Orientation: 0-Oriented Tacttile Disturbances: 0-None Auditory Disturbances: 0-None Visual Disturbances: 0-None Headache: 0-None Present CIWA-Ar Total Score: 5 [facility] COWS - Scale Resting Pulse: 0= [place] 80 or Below Sweatin= Chills/Flushing Restless Observation: 1= Difficult to Sit Still Pupil Size: 0= Normal to Room Light Bone or Joint Aches: 1= Mild Discomfort Runny Nose/ Eye Tearin= None GI Upset > 30mins: 0= None Tremor Observation of Outstretched Hands: 0= None Yawning Observation: 1= 1-2x During Session Anxiety or Irritability: 1=Feels Anxious/Irritable Goose Flesh Skin: 0=Smooth Skin COWS Score: 5 [facility] Progress Note (SOAP) Subjective: back pain Objective: 07/20/19 11:11 Vital Signs Temperature 98.4 F 07/20/19 07:04 Pulse Rate 67 07/20/19 07:04 Respiratory Rate 16 07/20/19 07:04 Blood Pressure 101/55 L 07/20/19 07:04 O2 Sat by Pulse Oximetry (%) aaox3 ambulating no acute distress Assessment: 07/20/19 11:11 withdrawals Plan: continue detox lidocaine patch motrin/tylenol/roboxin prn
[2019-07-20] MEDS: MELATONIN 5 MG TABLETS PO PRN (21:54)
[2019-07-20] MEDS: THIAMINE HCL 100 MG TABLET (FP) PO SCH (21:54)
[2019-07-21] MEDS ORDERED: chlordiazePOXIDE HCL 10 MG CAPSULE PO ONE (05:00)
[2019-07-21] MEDS: METHOCARBAMOL 500 MG TABLET PO PRN ×3 (06:16→21:01)
[2019-07-21] MEDS ORDERED: METHADONE HCL 10 MG TABLET (FOR DETOX USE ONLY) PO ONE (10:00)
[2019-07-21] MEDS: PRENATAL VITAMINS W/ FOLIC ACID TABLET (FP) PO SCH (11:17)
[2019-07-21] MEDS: NICOTINE 14 MG/24 HOURS TOPICAL PATCH TD SCH (11:18)
[2019-07-21] MEDS: hydrOXYzine PAMOATE 50 MG CAPSULE (FP) PO PRN ×3 (11:21→21:01)
--- NOTE | 2019-07-21 16:07 | PN ---
[facility] COWS - Scale Resting Pulse: 0= [place] 80 or Below Sweatin= No chills or Flushing Restless Observation: 1= Difficult to Sit Still Pupil Size: 1= Pupils >than Normal Bone or Joint Aches: 1= Mild Discomfort Runny Nose/ Eye Tearin= Nasal Congestion GI Upset > 30mins: 1= Stomach Cramp Tremor Observation of Outstretched Hands: 2= Slight Tremor Visible Yawning Observation: 1= 1-2x During Session Anxiety or Irritability: 2=Irritable/Anxious Goose Flesh Skin: 0=Smooth Skin COWS Score: 10 [facility] Progress Note (SOAP) Subjective: alert,irritable,anxious,interrupted sleep,pain in the body, Objective: 07/21/19 16:05 Vital Signs Temperature 98.1 F 07/21/19 13:31 Pulse Rate 78 07/21/19 13:31 Respiratory Rate 18 07/21/19 13:31 Blood Pressure 121/87 07/21/19 13:31 O2 Sat by Pulse Oximetry (%) Assessment: 07/21/19 16:06 withdrawal symptom Plan: continue detox methadone regimen,discharge in am
[2019-07-21] MEDS: THIAMINE HCL 100 MG TABLET (FP) PO SCH (21:01)
[2019-07-21 22:19] VITALS: TEMP 98.2
[2019-07-21] MEDS: MELATONIN 5 MG TABLETS PO PRN (23:31)
[2019-07-22] MEDS ORDERED: METHADONE HCL 5 MG TABLET (FOR DETOX USE ONLY) PO ONE (06:00)
[2019-07-22] MEDS: METHOCARBAMOL 500 MG TABLET PO PRN (06:09)
[2019-07-22] MEDS: hydrOXYzine PAMOATE 50 MG CAPSULE (FP) PO PRN (06:10)
[2019-07-22 07:33] VITALS: BP 106/56; PULSE 66
--- NOTE | 2019-07-22 12:59 | PN ---
[facility] CIWA - CIWA Score Nausea/Vomitin-No Nausea/No Vomiting Muscle Tremors: None Anxiety: 1-Mildly Anxious Agitation: 0-Normal Activity Paroxysmal Sweats: No Perspiration Orientation: 0-Oriented Tacttile Disturbances: 0-None Auditory Disturbances: 0-None Visual Disturbances: 0-None Headache: 0-None Present CIWA-Ar Total Score: 1 [facility] COWS - Scale Resting Pulse: 0= [place] 80 or Below Sweatin= No chills or Flushing Restless Observation: 0= Sits Still Pupil Size: 0= Normal to Room Light Bone or Joint Aches: 0= None Runny Nose/ Eye Tearin= None GI Upset > 30mins: 0= None Tremor Observation of Outstretched Hands: 1= Tremor [place], Not Seen Yawning Observation: 0= None Anxiety or Irritability: 0= None Goose Flesh Skin: 0=Smooth Skin COWS Score: 1 [facility] Progress Note (SOAP) Subjective: alert,no complaint Objective: 07/22/19 12:57 Vital Signs Temperature 98.2 F 07/22/19 07:33 Pulse Rate 66 07/22/19 07:33 Respiratory Rate 18 07/22/19 07:33 Blood Pressure 106/56 L 07/22/19 07:33 O2 Sat by Pulse Oximetry (%) Assessment: 07/22/19 12:58 detox completed,no withdrawal symptom Plan: stable for discharge today,follow up with after care program as arrangement
--- NOTE | 2019-07-22 13:04 | DS ---
[facility] Detox Discharge Summary Admission Date: 07/17/19 Discharge Date: 07/22/19 - History Present History: Alcohol Dependence, Cannabis Dependence, Cocaine Dependence, Opioid Dependence Additional Comments: alert,oriented x 3 ambulation without difficulty lung clear no swelling of leg no abdominal pain no sweating stable for discharge,discharge time 30 mins - Physical Exam Results Vital Signs: Vital Signs Temperature 98.2 F 07/22/19 07:33 Pulse Rate 66 07/22/19 07:33 Respiratory Rate 18 07/22/19 07:33 Blood Pressure 106/56 L 07/22/19 07:33 O2 Sat by Pulse Oximetry (%) Pertinent Admission Physical Exam Findings: withdrawal signs and symptom Laboratory Last Values WBC 6.9 K/mm3 (4.0-10.0) 07/18/19 08:00 RBC 4.18 M/mm3 (3.60-5.2) 07/18/19 08:00 Hgb 13.5 GM/dL (10.7-15.3) 07/18/19 08:00 Hct 38.7 % (32.4-45.2) 07/18/19 08:00 MCV 92.6 fl (80-96) 07/18/19 08:00 MCH 32.2 pg (25.7-33.7) 07/18/19 08:00 MCHC 34.8 g/dl (32.0-36.0) 07/18/19 08:00 RDW 13.5 % (11.6-15.6) 07/18/19 08:00 Plt Count 192 K/MM3 (134-434) 07/18/19 08:00 MPV 9.7 fl (7.5-11.1) 07/18/19 08:00 Sodium 140 mmol/L (136-145) 07/18/19 08:00 Potassium 4.3 mmol/L (3.5-5.1) 07/18/19 08:00 Chloride 107 mmol/L (98-107) 07/18/19 08:00 Carbon Dioxide 30 mmol/L (21-32) 07/18/19 08:00 Anion Gap 3 MMOL/L (8-16) L 07/18/19 08:00 BUN 9.6 mg/dL (7-18) 07/18/19 08:00 Creatinine 0.7 mg/dL (0.55-1.3) 07/18/19 08:00 Est GFR (CKD-EPI)AfAm 135.70 07/18/19 08:00 Est GFR (CKD-EPI)NonAf 117.08 07/18/19 08:00 Random Glucose 105 mg/dL (74-106) 07/18/19 08:00 Calcium 9.0 mg/dL (8.5-10.1) 07/18/19 08:00 Total Bilirubin 0.6 mg/dL (0.2-1) 07/18/19 08:00 AST 24 U/L (15-37) 07/18/19 08:00 ALT 31 U/L (13-61) 07/18/19 08:00 Alkaline Phosphatase 80 U/L (45-117) 07/18/19 08:00 Total Protein 6.7 g/dl (6.4-8.2) 07/18/19 08:00 Albumin 3.2 g/dl (3.4-5.0) L 07/18/19 08:00 POC Urine HCG, Qual Negative 07/17/19 13:34 RPR Titer Nonreactive (NONREACTIVE) 07/18/19 08:00 - Treatment Hospital Course: Detox Protocol Followed, Detoxed Safely, Responded well, Discharged Condition Good Patient has Accepted a Rehab Referral to: declined - Medication Discharge Medications: Ambulatory Orders NK [No Known Home Medication] 07/17/19 - Diagnosis (1) Alcohol dependence with uncomplicated withdrawal Status: Acute (2) Cannabis dependence, uncomplicated Status: Acute (3) Cocaine abuse Status: Acute (4) Opioid dependence with withdrawal Status: Acute - AMA Did Patient Leave Against Medical Advice: No
== END 2019-07-22 09:38 | disposition home or self-care (01) | DRG 773 ==
LOC: YASAS 11:19 → Y6N 15:09
PROVIDERS: ADMIT Allergy & Immunology; ATTEND Allergy & Immunology
PROC: HZ2ZZZZ Detoxification Services for Substance Abuse Treatment (ICD-10-PCS; principal; 2019-07-17)
DX: F11.23 Opioid dependence with withdrawal (principal); F10.230 Alcohol dependence with withdrawal, uncomplicated; F14.20 Cocaine dependence, uncomplicated; F12.20 Cannabis dependence, uncomplicated; F17.210 Nicotine dependence, cigarettes, uncomplicated; F19.282 Other psychoactive substance dependence with psychoactive substance-induced sleep disorder; F19.280 Other psychoactive substance dependence with psychoactive substance-induced anxiety disorder; F41.9 Anxiety disorder, unspecified; A60.04 Herpesviral vulvovaginitis; Z62.810 Personal history of physical and sexual abuse in childhood; Z91.5 Personal history of self-harm; Z86.69 Personal history of other diseases of the nervous system and sense organs
CPT/HCPCS: 36415; 80053; 81025; 85027; 86593

== ENCOUNTER 2019-12-16 11:15 | Inpatient (IN) | payer OTHER ==
--- NOTE | 2019-12-16 12:37 | BHS.RME ---
Substance Use & Tx History - Substance Use History Alcohol Substance amount: 1 pint leo +3 nips Frequency of use: Daily Substance route: Oral Date of Last Use: 12/16/19 Heroin Substance amount: 7-10 bags Frequency of use: Daily Cocaine- Powder Substance amount: $40-60 Frequency of use: More than 3 times per week Substance route: Inhalation (ex: sniffing or snorting) Date of Last Use: 12/14/19 Nicotine Substance amount: 1/2 pack Frequency of use: Daily Substance route: Smoking Date of Last Use: 12/16/19 Physical/Psych/Mental Status - Behavior General Behavior: Increased activity (restlessness, agitation) Eye Contact: Normal - Cooperativeness Cooperativeness: Cooperative - Thinking Thought Processes: Tight, Logical, Goal Directed - Physical Health Problems Is patient presently having any pain?: No Does patient presently have any injuries (include location): No Does patient currently have a fever: No Is patient : No COWS - Scale Resting Pulse: 0= [place] 80 or Below Sweatin= Chills/Flushing Restless Observation: 3= Extraneous Movement Pupil Size: 1= Pupils >than Normal Bone or Joint Aches: 2= Severe Diffuse Aches Runny Nose/ Eye Tearin= Runny Nose/Eyes GI Upset > 30mins: 0= None Tremor Observation: 1= Tremor [place], Not Seen Yawning Observation: 0= None Anxiety or Irritability: 2=Irritable/Anxious Goose Flesh Skin: 3=Piloerection COWS Score: 15 CIWA Nausea/Vomitin Muscle Tremors: 1-None Visible, but [place] Anxiety: 3 Agitation: 4-Moderately Restless Paroxysmal Sweats: 1-Minimal Palms Moist Orientation: 0-Oriented Tacttile Disturbances: 0-None Auditory Disturbances: 0-None Visual Disturbances: 0-None Headache: 2-Mild CIWA-Ar Total Score: 13
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
[2019-12-16] MEDS ORDERED: MAGNESIUM CITRATE 300 ML BOTTLE PO PRN (13:06)
[2019-12-16] MEDS ORDERED: chlordiazePOXIDE HCL 25 MG CAPSULE PO PRN (13:06)
[2019-12-16] MEDS ORDERED: ACETAMINOPHEN 325 MG TABLET (FP) PO PRN ×2 (13:06)
[2019-12-16] MEDS ORDERED: BISMUTH SUBSALICYLATE 262 MG/15 ML BTL PO PRN (13:06)
[2019-12-16] MEDS ORDERED: MAGNESIUM HYDROX 2400MG/30ML ORAL SUSPENSION 30 ML CUP PO PRN (13:06)
[2019-12-16] MEDS ORDERED: METHADONE HCL 10 MG TABLET (FOR DETOX USE ONLY) PO ONE (13:06)
[2019-12-16] MEDS ORDERED: IBUPROFEN 400 MG TABLET (FP) PO PRN (13:06)
[2019-12-16] MEDS ORDERED: ONDANSETRON *ODT* 4 MG TABLET SL PRN (13:06)
[2019-12-16] MEDS ORDERED: MENTHOL/PHENOL 1 EACH UD MM PRN (13:06)
[2019-12-16] MEDS ORDERED: cloNIDine HCL 0.1 MG TABLET PO PRN (13:06)
[2019-12-16] MEDS ORDERED: NICOTINE POLACRILEX 2 MG GUM BUC PRN (13:06)
[2019-12-16 15:12] VITALS: BMI 21.6
[2019-12-16 15:38] LABS: HEMATOCRIT 42.4 % (32.4-45.2); HEMOGLOBIN 13.9 GM/dL (10.7-15.3); MCH 31.2 pg (25.7-33.7); MCHC 32.8 g/dl (32.0-36.0); MEAN CELL VOLUME 95.3 fl (80-96); MEAN PLT VOLUME 10.2 fl (7.5-11.1); PLATELET COUNT 198 K/MM3 (134-434); RBC 4.45 M/mm3 (3.60-5.2); RDW 14.4 % (11.6-15.6); WHITE BLOOD COUNT 8.1 K/mm3 (4.0-10.0)
[2019-12-16 15:53] LABS: ALBUMIN 3.7 g/dl (3.4-5.0); BILIRUBIN,TOTAL 0.5 mg/dL (0.2-1); BLOOD UREA NITROGEN 7.2 mg/dL (7-18); CALCIUM 9.1 mg/dL (8.5-10.1); CREATININE 0.7 mg/dL (0.55-1.3); POTASSIUM 4.1 mmol/L (3.5-5.1); TOT PROT 6.8 g/dl (6.4-8.2)
[2019-12-16] MEDS: hydrOXYzine PAMOATE 25 MG CAPSULE (FP) PO SCH ×3 (15:53→22:16)
[2019-12-16] MEDS: PRENATAL VITAMINS W/ FOLIC ACID TABLET (FP) PO SCH (15:54)
[2019-12-16] MEDS: chlordiazePOXIDE HCL 25 MG CAPSULE PO SCH ×2 (17:37→22:16)
[2019-12-16] MEDS: MELATONIN 5 MG TABLETS PO SCH (22:16)
[2019-12-16] MEDS: THIAMINE HCL 100 MG TABLET (FP) PO SCH (22:16)
[2019-12-16] MEDS: METHOCARBAMOL 500 MG TABLET PO PRN (22:18)
[2019-12-17] MEDS: chlordiazePOXIDE HCL 25 MG CAPSULE PO SCH ×4 (05:45→22:15)
[2019-12-17] MEDS: METHOCARBAMOL 500 MG TABLET PO PRN ×2 (05:48→22:14)
[2019-12-17] MEDS: hydrOXYzine PAMOATE 25 MG CAPSULE (FP) PO SCH ×5 (05:50→22:15)
[2019-12-17] MEDS ORDERED: METHADONE HCL 5 MG TABLET (FOR DETOX USE ONLY) ONE (08:40)
[2019-12-17] MEDS ORDERED: METHADONE HCL 10 MG TABLET (FOR DETOX USE ONLY) ONE (08:41)
[2019-12-17] MEDS ORDERED: METHADONE (DETOX) 20 MG, METHADONE (DETOX) 5 MG PO ONE (10:00)
[2019-12-17] MEDS: PRENATAL VITAMINS W/ FOLIC ACID TABLET (FP) PO SCH (10:23)
--- NOTE | 2019-12-17 11:36 | EKG ---
Test Reason : Blood Pressure : / mmHG Vent. Rate : 073 BPM Atrial Rate : 073 BPM P-R Int : 154 ms QRS Dur : 090 ms QT Int : 386 ms P-R-T Axes : 051 008 015 degrees QTc Int : 425 ms NORMAL SINUS RHYTHM NORMAL ECG WHEN COMPARED WITH ECG OF 26-DEC-2018 21:08, NO SIGNIFICANT CHANGE WAS FOUND Confirmed by JERZY DUEÑAS MD ([id number]) on 12/17/2019 11:36:32 AM Referred By: Confirmed By:JERZY DUEÑAS MD
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
--- NOTE | 2019-12-17 14:46 | PN ---
[facility] CIWA - CIWA Score Nausea/Vomitin-No Nausea/No Vomiting Muscle Tremors: 2 Anxiety: 3 Agitation: 2 Paroxysmal Sweats: 2 Orientation: 0-Oriented Tacttile Disturbances: 0-None Auditory Disturbances: 0-None Visual Disturbances: 2-Mild Sensitivity Headache: 0-None Present CIWA-Ar Total Score: 11 S COWS - Scale Resting Pulse: 0= [place] 80 or Below Sweatin= Chills/Flushing Restless Observation: 1= Difficult to Sit Still Pupil Size: 0= Normal to Room Light Bone or Joint Aches: 2= Severe Diffuse Aches Runny Nose/ Eye Tearin= None GI Upset > 30mins: 0= None Tremor Observation of Outstretched Hands: 2= Slight Tremor Visible Yawning Observation: 0= None Anxiety or Irritability: 2=Irritable/Anxious Goose Flesh Skin: 3=Piloerection COWS Score: 11 [facility] Progress Note (SOAP) Subjective: Complaints of sweats, chills, body aches, and shakes. Objective: 12/17/19 14:45 Vital Signs 12/17/19 12/17/19 08:55 12:41 Temperature 97.5 F L 97.5 F L Pulse Rate 70 77 Respiratory 18 16 Rate Blood Pressure 116/60 109/65 O2 Sat by Pulse 100 Oximetry (%) Laboratory Last Values WBC 8.1 K/mm3 (4.0-10.0) 12/16/19 13:05 RBC 4.45 M/mm3 (3.60-5.2) 12/16/19 13:05 Hgb 13.9 GM/dL (10.7-15.3) 12/16/19 13:05 Hct 42.4 % (32.4-45.2) 12/16/19 13:05 MCV 95.3 fl (80-96) 12/16/19 13:05 MCH 31.2 pg (25.7-33.7) 12/16/19 13:05 MCHC 32.8 g/dl (32.0-36.0) 12/16/19 13:05 RDW 14.4 % (11.6-15.6) 12/16/19 13:05 Plt Count 198 K/MM3 (134-434) 12/16/19 13:05 MPV 10.2 fl (7.5-11.1) 12/16/19 13:05 Sodium 139 mmol/L (136-145) 12/16/19 13:05 Potassium 4.1 mmol/L (3.5-5.1) 12/16/19 13:05 Chloride 102 mmol/L (98-107) 12/16/19 13:05 Carbon Dioxide 32 mmol/L (21-32) 12/16/19 13:05 Anion Gap 5 MMOL/L (8-16) L 12/16/19 13:05 BUN 7.2 mg/dL (7-18) 12/16/19 13:05 Creatinine 0.7 mg/dL (0.55-1.3) 12/16/19 13:05 Est GFR (CKD-EPI)AfAm 134.75 12/16/19 13:05 Est GFR (CKD-EPI)NonAf 116.26 12/16/19 13:05 Random Glucose 74 mg/dL (74-106) 12/16/19 13:05 Calcium 9.1 mg/dL (8.5-10.1) 12/16/19 13:05 Total Bilirubin 0.5 mg/dL (0.2-1) 12/16/19 13:05 AST 13 U/L (15-37) L 12/16/19 13:05 ALT 17 U/L (13-61) 12/16/19 13:05 Alkaline Phosphatase 85 U/L (45-117) 12/16/19 13:05 Total Protein 6.8 g/dl (6.4-8.2) 12/16/19 13:05 Albumin 3.7 g/dl (3.4-5.0) 12/16/19 13:05 Syphilis Serology Non-reactive (NONREACTIVE) 12/16/19 13:05 HIV Ag/Ab Combo Qual Negative (NEGATIVE) 12/17/19 06:00 labs noted. Assessment: 12/17/19 14:45 Alert and oriented x3, in no acute respiratory distress. Full ROM, ambulatory on unit. Withdrawal symptoms. Plan: continue detox protocol.
[2019-12-17] MEDS: THIAMINE HCL 100 MG TABLET (FP) PO SCH (22:14)
[2019-12-17] MEDS: traZODone HCL 50 MG TABLET (FP) PO SCH (22:15)
[2019-12-17] MEDS: MELATONIN 5 MG TABLETS PO SCH (22:15)
[2019-12-18] MEDS: chlordiazePOXIDE HCL 25 MG CAPSULE PO SCH ×4 (07:38→21:59)
[2019-12-18] MEDS: hydrOXYzine PAMOATE 25 MG CAPSULE (FP) PO SCH ×5 (07:38→21:53)
[2019-12-18] MEDS ORDERED: METHADONE HCL 10 MG TABLET (FOR DETOX USE ONLY) PO ONE (10:00)
[2019-12-18] MEDS: PRENATAL VITAMINS W/ FOLIC ACID TABLET (FP) PO SCH (10:19)
[2019-12-18] MEDS: METHOCARBAMOL 500 MG TABLET PO PRN ×2 (12:31→21:53)
[2019-12-18] MEDS ORDERED: MASKS NR ONE (14:42)
--- NOTE | 2019-12-18 16:24 | PN ---
[facility] CIWA - CIWA Score Nausea/Vomitin-Mild Nausea/No Vomiting Muscle Tremors: 2 Anxiety: 3 Agitation: 1-Slight > Activity Paroxysmal Sweats: 3 Orientation: 0-Oriented Tacttile Disturbances: 0-None Auditory Disturbances: 0-None Visual Disturbances: 0-None Headache: 0-None Present CIWA-Ar Total Score: 10 [facility] COWS - Scale Resting Pulse: 0= [place] 80 or Below Sweatin= Chills/Flushing Restless Observation: 0= Sits Still Pupil Size: 0= Normal to Room Light Bone or Joint Aches: 2= Severe Diffuse Aches Runny Nose/ Eye Tearin= Runny Nose/Eyes GI Upset > 30mins: 1= Stomach Cramp Tremor Observation of Outstretched Hands: 2= Slight Tremor Visible Yawning Observation: 0= None Anxiety or Irritability: 2=Irritable/Anxious Goose Flesh Skin: 0=Smooth Skin COWS Score: 10 S Progress Note (SOAP) Subjective: Anxious, chills Objective: 12/18/19 16:23 Last Vital Signs Temp Pulse Resp BP Pulse Ox 97.5 F L 70 18 102/50 L 98 12/18/19 12:31 12/18/19 12:31 12/18/19 12:31 12/18/19 12:31 12/18/19 12:31 Laboratory Tests 12/16/19 12/16/19 12/16/19 13:05 13:05 13:05 WBC 8.1 RBC 4.45 Hgb 13.9 Hct 42.4 MCV 95.3 MCH 31.2 MCHC 32.8 RDW 14.4 Plt Count 198 MPV 10.2 Sodium 139 Potassium 4.1 Chloride 102 Carbon Dioxide 32 Anion Gap 5 L BUN 7.2 Creatinine 0.7 Est GFR (CKD-EPI)AfAm 134.75 Est GFR (CKD-EPI)NonAf 116.26 Random Glucose 74 Calcium 9.1 Total Bilirubin 0.5 AST 13 L ALT 17 Alkaline Phosphatase 85 Total Protein 6.8 Albumin 3.7 Syphilis Serology Non-reactive HIV Ag/Ab Combo Qual 12/17/19 06:00 WBC RBC Hgb Hct MCV MCH MCHC RDW Plt Count MPV Sodium Potassium Chloride Carbon Dioxide Anion Gap BUN Creatinine Est GFR (CKD-EPI)AfAm Est GFR (CKD-EPI)NonAf Random Glucose Calcium Total Bilirubin AST ALT Alkaline Phosphatase Total Protein Albumin Syphilis Serology HIV Ag/Ab Combo Qual Negative Labs reviewed Assessment: 12/18/19 16:23 Withdrawal sxs Plan: Continue detox Encouraged PO water intake
[2019-12-18] MEDS: traZODone HCL 50 MG TABLET (FP) PO SCH (21:53)
[2019-12-18] MEDS: THIAMINE HCL 100 MG TABLET (FP) PO SCH (21:53)
[2019-12-18] MEDS: MELATONIN 5 MG TABLETS PO SCH (22:42)
[2019-12-19] MEDS ORDERED: chlordiazePOXIDE HCL 10 MG CAPSULE PO PRN
[2019-12-19] MEDS: chlordiazePOXIDE HCL 10 MG CAPSULE PO SCH ×4 (06:32→22:30)
[2019-12-19] MEDS: hydrOXYzine PAMOATE 25 MG CAPSULE (FP) PO SCH ×2 (06:32→10:55)
[2019-12-19] MEDS ORDERED: METHADONE HCL 5 MG TABLET (FOR DETOX USE ONLY) ONE (09:45)
[2019-12-19] MEDS ORDERED: METHADONE HCL 10 MG TABLET (FOR DETOX USE ONLY) ONE (09:46)
[2019-12-19] MEDS ORDERED: METHADONE (DETOX) 10 MG, METHADONE (DETOX) 5 MG PO ONE (10:00)
[2019-12-19] MEDS: PRENATAL VITAMINS W/ FOLIC ACID TABLET (FP) PO SCH (10:55)
[2019-12-19] MEDS: METHOCARBAMOL 500 MG TABLET PO PRN (10:56)
--- NOTE | 2019-12-19 11:07 | PN ---
[facility] CIWA - CIWA Score Nausea/Vomitin-No Nausea/No Vomiting Muscle Tremors: 3 Anxiety: 2 Agitation: 2 Paroxysmal Sweats: 2 Orientation: 0-Oriented Tacttile Disturbances: 0-None Auditory Disturbances: 0-None Visual Disturbances: 0-None Headache: 0-None Present CIWA-Ar Total Score: 9 [facility] COWS - Scale Resting Pulse: 0= [place] 80 or Below Sweatin= Chills/Flushing Restless Observation: 1= Difficult to Sit Still Pupil Size: 0= Normal to Room Light Bone or Joint Aches: 1= Mild Discomfort Runny Nose/ Eye Tearin= None GI Upset > 30mins: 0= None Tremor Observation of Outstretched Hands: 1= Tremor [place], Not Seen Yawning Observation: 1= 1-2x During Session Anxiety or Irritability: 2=Irritable/Anxious Goose Flesh Skin: 0=Smooth Skin COWS Score: 7 S Progress Note (SOAP) Subjective: sweats shakes anxiety body aches Objective: 12/19/19 11:06 Vital Signs Temperature 97.7 F 12/19/19 09:03 Pulse Rate 76 12/19/19 09:03 Respiratory Rate 18 12/19/19 09:03 Blood Pressure 103/58 L 12/19/19 09:03 O2 Sat by Pulse Oximetry (%) 100 12/19/19 06:08 Laboratory Tests 12/16/19 12/16/19 12/16/19 12:51 13:05 13:05 WBC 8.1 RBC 4.45 Hgb 13.9 Hct 42.4 MCV 95.3 MCH 31.2 MCHC 32.8 RDW 14.4 Plt Count 198 MPV 10.2 Sodium 139 Potassium 4.1 Chloride 102 Carbon Dioxide 32 Anion Gap 5 L BUN 7.2 Creatinine 0.7 Est GFR (CKD-EPI)AfAm 134.75 Est GFR (CKD-EPI)NonAf 116.26 Random Glucose 74 Calcium 9.1 Total Bilirubin 0.5 AST 13 L ALT 17 Alkaline Phosphatase 85 Total Protein 6.8 Albumin 3.7 POC Urine HCG, Qual Negative Syphilis Serology COVID-19 ([facility]) HIV Ag/Ab Combo Qual 12/16/19 12/16/19 12/17/19 13:05 15:30 06:00 WBC RBC Hgb Hct MCV MCH MCHC RDW Plt Count MPV Sodium Potassium Chloride Carbon Dioxide Anion Gap BUN Creatinine Est GFR (CKD-EPI)AfAm Est GFR (CKD-EPI)NonAf Random Glucose Calcium Total Bilirubin AST ALT Alkaline Phosphatase Total Protein Albumin POC Urine HCG, Qual Syphilis Serology Non-reactive COVID-19 (RADHA) Not detected HIV Ag/Ab Combo Qual Negative labs noted aaox3 ambulating no acute distress Assessment: 12/19/19 11:06 withdrawals Plan: continue detox visitiril 50mg prn q4hrs increase fluids
[2019-12-19] MEDS: hydrOXYzine PAMOATE 50 MG CAPSULE (FP) PO PRN ×3 (12:16→22:30)
[2019-12-19] MEDS: traZODone HCL 50 MG TABLET (FP) PO SCH (22:30)
[2019-12-19] MEDS: THIAMINE HCL 100 MG TABLET (FP) PO SCH (22:30)
[2019-12-19] MEDS: MELATONIN 5 MG TABLETS PO SCH (22:31)
[2019-12-20] MEDS: chlordiazePOXIDE HCL 10 MG CAPSULE PO SCH ×2 (06:10→17:46)
[2019-12-20] MEDS: hydrOXYzine PAMOATE 50 MG CAPSULE (FP) PO PRN ×4 (06:12→23:35)
[2019-12-20] MEDS ORDERED: METHADONE HCL 10 MG TABLET (FOR DETOX USE ONLY) PO ONE (10:00)
[2019-12-20] MEDS: PRENATAL VITAMINS W/ FOLIC ACID TABLET (FP) PO SCH (10:33)
[2019-12-20] MEDS: METHOCARBAMOL 500 MG TABLET PO PRN ×2 (10:35→22:30)
--- NOTE | 2019-12-20 11:15 | PN ---
[facility] CIWA - CIWA Score Nausea/Vomitin-No Nausea/No Vomiting Muscle Tremors: 2 Anxiety: 1-Mildly Anxious Agitation: 0-Normal Activity Paroxysmal Sweats: No Perspiration Orientation: 0-Oriented Tacttile Disturbances: 0-None Auditory Disturbances: 0-None Visual Disturbances: 0-None Headache: 0-None Present CIWA-Ar Total Score: 3 BHS COWS - Scale Resting Pulse: 0= [place] 80 or Below Sweatin= Chills/Flushing Restless Observation: 1= Difficult to Sit Still Pupil Size: 0= Normal to Room Light Bone or Joint Aches: 1= Mild Discomfort Runny Nose/ Eye Tearin= None GI Upset > 30mins: 0= None Tremor Observation of Outstretched Hands: 0= None Yawning Observation: 1= 1-2x During Session Anxiety or Irritability: 1=Feels Anxious/Irritable Goose Flesh Skin: 0=Smooth Skin COWS Score: 5 S Progress Note (SOAP) Subjective: feeling better little anxious interrupted sleep Objective: 12/20/19 11:15 Vital Signs Temperature 97.1 F L 12/20/19 08:47 Pulse Rate 69 12/20/19 08:47 Respiratory Rate 17 12/20/19 08:47 Blood Pressure 101/54 L 12/20/19 08:47 O2 Sat by Pulse Oximetry (%) 100 12/20/19 06:06 aaox3 ambulating no acute distress Assessment: 12/20/19 11:15 mild withdrawals Plan: continue detox increase fluids d/c in am
[2019-12-20] MEDS: THIAMINE HCL 100 MG TABLET (FP) PO SCH (22:30)
[2019-12-20] MEDS: traZODone HCL 50 MG TABLET (FP) PO SCH (22:30)
[2019-12-20] MEDS: MELATONIN 5 MG TABLETS PO SCH (22:37)
[2019-12-20] MEDS: MAG HYDROX/AL HYDROX/SIMETH 30 ML UNIT-DOSE CUP PO PRN (23:35)
[2019-12-21] MEDS ORDERED: chlordiazePOXIDE HCL 10 MG CAPSULE PO ONE (05:00)
[2019-12-21] MEDS: hydrOXYzine PAMOATE 50 MG CAPSULE (FP) PO PRN (05:48)
[2019-12-21] MEDS: METHOCARBAMOL 500 MG TABLET PO PRN ×2 (05:51→08:00)
[2019-12-21] MEDS ORDERED: METHADONE HCL 5 MG TABLET (FOR DETOX USE ONLY) PO ONE (06:00)
[2019-12-21 06:27] VITALS: BP 100/56; PULSE 62; TEMP 97.7
[2019-12-21] MEDS: MAG HYDROX/AL HYDROX/SIMETH 30 ML UNIT-DOSE CUP PO PRN (08:01)
--- NOTE | 2019-12-21 10:12 | PN ---
[facility] CIWA - CIWA Score Nausea/Vomitin-No Nausea/No Vomiting Muscle Tremors: None Anxiety: 1-Mildly Anxious Agitation: 0-Normal Activity Paroxysmal Sweats: No Perspiration Orientation: 0-Oriented Tacttile Disturbances: 0-None Auditory Disturbances: 0-None Visual Disturbances: 0-None Headache: 0-None Present CIWA-Ar Total Score: 1 [facility] COWS - Scale Resting Pulse: 0= [place] 80 or Below Sweatin= No chills or Flushing Restless Observation: 0= Sits Still Pupil Size: 0= Normal to Room Light Bone or Joint Aches: 0= None Runny Nose/ Eye Tearin= None GI Upset > 30mins: 0= None Tremor Observation of Outstretched Hands: 0= None Yawning Observation: 0= None Anxiety or Irritability: 1=Feels Anxious/Irritable Goose Flesh Skin: 0=Smooth Skin COWS Score: 1 [facility] Progress Note (SOAP) Subjective: alert,no complaint Objective: 12/21/19 10:10 Vital Signs Temperature 97.7 F 12/21/19 05:45 Pulse Rate 62 12/21/19 05:45 Respiratory Rate 20 12/21/19 05:45 Blood Pressure 100/56 L 12/21/19 05:45 O2 Sat by Pulse Oximetry (%) 98 12/21/19 05:45 12/21/19 10:10 detox completed,no withdrawal symptom Assessment: 12/21/19 10:11 no withdrawal symptom Plan: stable for discharge today,follow up with after care program as arrangement
--- NOTE | 2019-12-21 10:13 | DS ---
[facility] Detox Discharge Summary Admission Date: 12/16/19 Discharge Date: 12/21/19 - History Present History: Alcohol Dependence, Cannabis Dependence, Cocaine Dependence, Opioid Dependence Additional Comments: alerted,oriented x 3 ambulation on the unit lung clear on auscultation bilaterally no edema of the lags detox completed,no withdrawal symptom stable for discharge declined rehab and refer advise follow up with out patient program,aa meeting left the unit in good and stable condition total time spending on discharge 35 minutes Pertinent Past History: insomnia nicotine dependence alcohol related seizure - Physical Exam Results Vital Signs: Vital Signs Temperature 97.7 F 12/21/19 05:45 Pulse Rate 62 12/21/19 05:45 Respiratory Rate 20 12/21/19 05:45 Blood Pressure 100/56 L 12/21/19 05:45 O2 Sat by Pulse Oximetry (%) 98 12/21/19 05:45 Pertinent Admission Physical Exam Findings: withdrawal signs and symptom Laboratory Last Values WBC 8.1 K/mm3 (4.0-10.0) 12/16/19 13:05 RBC 4.45 M/mm3 (3.60-5.2) 12/16/19 13:05 Hgb 13.9 GM/dL (10.7-15.3) 12/16/19 13:05 Hct 42.4 % (32.4-45.2) 12/16/19 13:05 MCV 95.3 fl (80-96) 12/16/19 13:05 MCH 31.2 pg (25.7-33.7) 12/16/19 13:05 MCHC 32.8 g/dl (32.0-36.0) 12/16/19 13:05 RDW 14.4 % (11.6-15.6) 12/16/19 13:05 Plt Count 198 K/MM3 (134-434) 12/16/19 13:05 MPV 10.2 fl (7.5-11.1) 12/16/19 13:05 Sodium 139 mmol/L (136-145) 12/16/19 13:05 Potassium 4.1 mmol/L (3.5-5.1) 12/16/19 13:05 Chloride 102 mmol/L (98-107) 12/16/19 13:05 Carbon Dioxide 32 mmol/L (21-32) 12/16/19 13:05 Anion Gap 5 MMOL/L (8-16) L 12/16/19 13:05 BUN 7.2 mg/dL (7-18) 12/16/19 13:05 Creatinine 0.7 mg/dL (0.55-1.3) 12/16/19 13:05 Est GFR (CKD-EPI)AfAm 134.75 12/16/19 13:05 Est GFR (CKD-EPI)NonAf 116.26 12/16/19 13:05 Random Glucose 74 mg/dL (74-106) 12/16/19 13:05 Calcium 9.1 mg/dL (8.5-10.1) 12/16/19 13:05 Total Bilirubin 0.5 mg/dL (0.2-1) 12/16/19 13:05 AST 13 U/L (15-37) L 12/16/19 13:05 ALT 17 U/L (13-61) 12/16/19 13:05 Alkaline Phosphatase 85 U/L (45-117) 12/16/19 13:05 Total Protein 6.8 g/dl (6.4-8.2) 12/16/19 13:05 Albumin 3.7 g/dl (3.4-5.0) 12/16/19 13:05 POC Urine HCG, Qual Negative 12/16/19 12:51 Syphilis Serology Non-reactive (NONREACTIVE) 12/16/19 13:05 COVID-19 ([facility]) Not detected (Not Detected) 12/16/19 15:30 HIV Ag/Ab Combo Qual Negative (NEGATIVE) 12/17/19 06:00 Vital Signs Temperature 97.7 F 12/21/19 05:45 Pulse Rate 62 12/21/19 05:45 Respiratory Rate 20 12/21/19 05:45 Blood Pressure 100/56 L 12/21/19 05:45 O2 Sat by Pulse Oximetry (%) 98 12/21/19 05:45 - Treatment Hospital Course: Detox Protocol Followed, Detoxed Safely, Responded well, Discharged Condition Good Patient has Accepted a Rehab Referral to: declined - Medication Discharge Medications: Ambulatory Orders Naloxone HCl [Narcan] 4 mg NS ASDIR PRN #1 spray 09/11/19 - Diagnosis (1) Opioid dependence with withdrawal Status: Acute (2) Alcohol dependence with uncomplicated withdrawal Status: Acute (3) Cocaine abuse Status: Acute (4) Cannabis dependence, uncomplicated Status: Chronic (5) Insomnia Status: Chronic (6) Nicotine dependence Status: Chronic Qualifiers: Nicotine product type: cigarettes Substance use status: uncomplicated Qualified Code(s): F17.210 - Nicotine dependence, cigarettes, uncomplicated (7) Alcohol related seizure Status: Resolved - AMA Did Patient Leave Against Medical Advice: No
== END 2019-12-21 09:05 | disposition home or self-care (01) | DRG 773 ==
LOC: YASAS 11:15 → Y6N 15:22
PROVIDERS: ADMIT Allergy & Immunology; ATTEND Allergy & Immunology
PROC: HZ2ZZZZ Detoxification Services for Substance Abuse Treatment (ICD-10-PCS; principal; 2019-12-16)
DX: F10.230 Alcohol dependence with withdrawal, uncomplicated (principal); F11.23 Opioid dependence with withdrawal; F14.20 Cocaine dependence, uncomplicated; F12.20 Cannabis dependence, uncomplicated; F17.210 Nicotine dependence, cigarettes, uncomplicated; F43.10 Post-traumatic stress disorder, unspecified; F60.3 Borderline personality disorder; F19.24 Other psychoactive substance dependence with psychoactive substance-induced mood disorder; R56.9 Unspecified convulsions; G47.00 Insomnia, unspecified; Z62.810 Personal history of physical and sexual abuse in childhood; Z91.410 Personal history of adult physical and sexual abuse; Z86.19 Personal history of other infectious and parasitic diseases; Z91.5 Personal history of self-harm
CPT/HCPCS: 36415; 80053; 81025; 85027; 86780; 87389; 93005; 93010; U0003

== ENCOUNTER 2020-03-10 14:45 | Inpatient (IN) | payer OTHER ==
--- OUTSIDE RECORDS SUMMARY | 2020-03-10 15:10 | XMS ---
:1990 Author Organization [facility] Support Name Relationship Address Phone UE Unavailable Unavailable Unavailable MARICARMEN CROFT MOTHER [address] [place] [address] IKE CROFT SELF / SAME PATIENT [address] SUSPENSION LIST UNTIL 05/07/17 [place] [address] MARICARMEN CROFT Mother [address] [place] [address] Re-disclosure Warning The records that you are about to access may contain information from federally- assisted alcohol or drug abuse programs. If such information is present, then the following federally mandated warning applies: This information has been disclosed to you from records protected by federal confidentiality rules (42 CFR part 2). The federal rules prohibit you from making any further disclosure of this information unless further disclosure is expressly permitted by the written consent of the person to whom it pertains or as otherwise permitted by 42 CFR part 2. A general authorization for the release of medical or other information is NOT sufficient for this purpose. The Federal rules restrict any use of the information to criminally investigate or prosecute any alcohol or drug abuse patient.The records that you are about to access may contain highly sensitive health information, the redisclosure of which is protected by Article 27-F of the [facility] Public Health law. If you continue you may haveaccess to information: Regarding HIV / AIDS; Provided by facilities licensed or operated by the [facility] Office of Mental Health; or Provided by the [facility] Office for People With Developmental Disabilities. If such information is present, then the following [facility] mandated warning applies: This information has been disclosed to you from confidential records which are protected by state law. State law prohibits you from making any further disclosure of this information without the specific written consent of the person to whom it pertains, or as otherwise permitted by law. Any unauthorized further disclosure in violation of state law may result in a fine or fci sentence or both. A general authorization for the release of medical or other information is NOT sufficient authorization for further disclosure. Insurance Providers Payer name Policy type Policy ID Covered Covered green party's Policy P skylar / Coverage green party ID relationship to Paez Inf ormation type paez ALINE [id number] HEALTH NON CAP [employer] OF [id number] SP [id number] [employer]. [employer]LLC[employer] OF [id number] SP [id number] [employer]. [employer] OF [id number] SP [id number] [employer]. Results ID Date Data Source [id number] 01/31/2020 08:30:00 AM EDT [facility] Name Value Range Interpretation Description Data Sup porting Code Source(s) Document(s ) SARS [facility] coronavirus 2 RNA This lab was ordered by [facility] Inter and reported by [facility]. ID Date Data Source [id number] 12/16/2019 03:30:00 PM EDT [facility] Name Value Range Interpretation Description Data Sup porting Code Source(s) Document(s ) SARS [facility] coronavirus 2 RNA This lab was ordered by [facility] Bill Inter and reported by [facility]. Procedure
--- NOTE | 2020-03-10 16:59 | BHS.RME ---
Substance Use & Tx History - Substance Use History Heroin Substance amount: 8-10 bags Frequency of use: Daily Substance route: Inhalation (ex: sniffing or snorting) Date of Last Use: 03/10/20 (Started at age 25.) Cocaine-Crack Substance amount: $50 Frequency of use: Less than 3 times per week Substance route: Smoking Date of Last Use: 03/09/20 (Started at age 26.) Cocaine- Powder Substance amount: $20-50 Frequency of use: More than 3 times per week Substance route: Inhalation (ex: sniffing or snorting) Date of Last Use: 03/08/20 (Started at age 14.) Alcohol Substance amount: 10-12 16 oz beers daily, 1-2 nips Frequency of use: Daily Substance route: Oral Date of Last Use: 03/10/20 (Started at age 12.) Nicotine Substance amount: 10 Frequency of use: Daily Substance route: Smoking Date of Last Use: 03/10/20 (Started at age 11/12. ) - Last Treatment Date of last treatment: 02/2020 Where was last treatment: Detox Physical/Psych/Mental Status - Behavior General Behavior: Increased activity (restlessness, agitation) - Cooperativeness Cooperativeness: Cooperative - Physical Health Problems Is patient presently having any pain?: Yes (Knees and back r/t withdrawal) Does patient presently have any injuries (include location): No Does patient currently have a fever: No Is patient : No COWS - Scale Resting Pulse: 0= [place] 80 or Below Sweatin=Flushed/Facial Moisture Restless Observation: 1= Difficult to Sit Still Bone or Joint Aches: 1= Mild Discomfort Runny Nose/ Eye Tearin= Nasal Congestion GI Upset > 30mins: 0= None Tremor Observation: 1= Tremor [place], Not Seen Yawning Observation: 0= None Anxiety or Irritability: 1=Feels Anxious/Irritable Goose Flesh Skin: 0=Smooth Skin CIWA Nausea/Vomitin-No Nausea/No Vomiting Muscle Tremors: 3 Anxiety: 3 Agitation: 3 Paroxysmal Sweats: 3 Orientation: 1-Uncertain about Date Tacttile Disturbances: 0-None Auditory Disturbances: 0-None Visual Disturbances: 0-None Headache: 2-Mild (Frontal throbbinh headache "4") CIWA-Ar Total Score: 15
[2020-03-10 17:06] VITALS: BMI 22.6
--- NOTE | 2020-03-10 17:51 | HP ---
COWS - Scale Resting Pulse: 0= MD 80 or Below Sweatin=Flushed/Facial Moisture Restless Observation: 1= Difficult to Sit Still Pupil Size: 2= Moderately Dilated (Pupils = 3 mm) Bone or Joint Aches: 1= Mild Discomfort Runny Nose/ Eye Tearin= Nasal Congestion GI Upset > 30mins: 1= Stomach Cramp Tremor Observation: 2= Slight Tremor Visible Yawning Observation: 0= None Anxiety or Irritability: 2=Irritable/Anxious Goose Flesh Skin: 0=Smooth Skin COWS Score: 12 CIWA Score Nausea/Vomitin-No Nausea/No Vomiting Muscle Tremors: 3 Anxiety: 3 Agitation: 3 Paroxysmal Sweats: 3 Orientation: 1-Uncertain about Date Tacttile Disturbances: 0-None Auditory Disturbances: 0-None Visual Disturbances: 0-None Headache: 2-Mild (Frontal throbbing headache "4") CIWA-Ar Total Score: 15 - Admission Criteria [facility] Guidelines: Admission for Medically Managed Detox: Requires at least one of the followin. CIWA greater than 12 2. Seizures within the past 24 hours 3. Delirium tremens within the past 24 hours 4. Hallucinations within the past 24 hours 5. Acute intervention needed for co occurring medical disorder 6. Acute intervention needed for co occurring psychiatric disorder 7. Severe withdrawal that cannot be handled at a lower level of care (continued vomiting, continued diarrhea, abnormal vital signs) requiring intravenous medication and/or fluids 8. Patient presents the following: CIWA greater than 12 (MYNOR 0.061) Admission Criteria Met: Admission criteria met Admitting History and Physical - Past Medical History ...LMP: 12/31/19 - Smoking History Smoking history: Current every day smoker Have you smoked in the past 12 months: Yes Aproximately how many cigarettes per day: 10 - Alcohol/Substance Use Hx Alcohol Use: Yes Admission ROS BHS - HPI Chief Complaint: "States here to kick heroin. Not sure about other substances" Allergies/Adverse Reactions: Allergies Allergy/AdvReac Type Severity Reaction Status Date / Time No Known Allergies Allergy Verified 12/16/19 15:07 History of Present Illness: 29 yo presents w/ alcohol and opioid withdrawal seeking detox. MYNOR: 0.61 UTox: + CINDA/FEN/MOP Hx: seizures r/t alcohol withdrawal. Hx: Overdoses - last 2016 Substance Use History Heroin Substance amount: 8-10 bags Frequency of use: Daily Substance route: Inhalation (ex: sniffing or snorting) Date of Last Use: 03/10/20 (Started at age 25.) Cocaine-Crack Substance amount: $50 Frequency of use: Less than 3 times per week Substance route: Smoking Date of Last Use: 03/09/20 (Started at age 26.) Cocaine- Powder Substance amount: $20-50 Frequency of use: More than 3 times per week Substance route: Inhalation (ex: sniffing or snorting) Date of Last Use: 03/08/20 (Started at age 14.) Alcohol Substance amount: 10-12 16 oz beers daily, 1-2 nips Frequency of use: Daily Substance route: Oral Date of Last Use: 03/10/20 (Started at age 12.) Nicotine Substance amount: 10 Frequency of use: Daily Substance route: Smoking Date of Last Use: 03/10/20 (Started at age 10/12. ) PMHx: denies MHHx: Insomnia. Denies depression. Denies thoughts of harming self or others. SHx: Domiciled. Unemployed. Denies legal issues Patient Name: Rosa Isela Larkin Date: 1990 Address: [address] [place] [address] Sex: Female Rx Written Rx Dispensed Drug Quantity Days Supply Prescriber Name Payment Method Dispenser 05/21/2019 05/21/2019 buprenorphine-naloxone 8-2 mg sl tablet 10 5 Ramiro Lowery Insurance [employer] Ja Date: 1990 Address: [place] [address] Sex: Female Rx Written Rx Dispensed Drug Quantity Days Supply Prescriber Name Payment Method Dispenser 08/04/2019 08/05/2019 chlordiazepoxide 25 mg capsule 8 2 Banez, Ferdinand Medicaid [facility] 04/12/2019 04/12/2019 chlordiazepoxide 25 mg capsule 8 2 Banez, Ferdinand Medicaid [facility] Exam Limitations: No Limitations - Ebola screening Have you traveled outside of the country in the last 21 days: No (Denies COVID exposure) Have you had contact with anyone from an Ebola affected area: No Have you been sick,other than usual withdrawal symptoms: No Do you have a fever: No - Review of Systems Constitutional: Chills, Diaphoresis (Increased facial moisture), Changes in sleep (Difficulty falling asleep), Weight Stable EENT: reports: Nose Congestion Respiratory: reports: No Symptoms reported Cardiac: reports: No Symptoms Reported GI: reports: Nausea, Indigestion (Heart burn r/t drinking) : reports: No Symptoms Reported Musculoskeletal: reports: Back Pain (r/t withdrawal), Muscle Pain (r/t withdrawal) Integumentary: reports: No Symptoms Reported Neuro: reports: Headache (Frontal throbbing headache "4"), Tremors Endocrine: reports: Increased Thirst Hematology: reports: No Symptoms Reported Psychiatric: reports: Mood/Affect Appropiate, Agitated, Anxious Patient History - Patient Medical History Hx Anemia: No Hx Asthma: No Hx Chronic Obstructive Pulmonary Disease (COPD): No Hx Cancer: No Hx Cardiac Disorders: No Hx Congestive Heart Failure: No Hx Hypertension: No Hx Hypercholesterolemia: No Hx Pacemaker: No HX Cerebrovascular Accident: No Hx Seizures: Yes (Alcohol related seizures) Hx Diabetes: No Hx Gastrointestinal Disorders: No Hx Liver Disease: No Hx Genitourinary Disorders: No Hx Sexually Transmitted Disorders: No Hx Renal Disease (ESRD): No Hx Thyroid Disease: No Hx Human Immunodeficiency Virus (HIV): No (Negative 2019) Hx Hepatitis C: No Hx Depression: No Hx Suicide Attempt: Yes (Attempt 2015, denies suicidal ideation at this time) Hx Bipolar Disorder: No Hx Schizophrenia: No - Patient Surgical History Past Surgical History: Yes Hx Neurologic Surgery: No Hx Cataract Extraction: No Hx Cardiac Surgery: No Hx Lung Surgery: No Hx Breast Surgery: No Hx Breast Biopsy: No Hx Abdominal Surgery: No Hx Appendectomy: No Hx Cholecystectomy: No Hx Genitourinary Surgery: No Hx Section: No Hx Orthopedic Surgery: Yes (right femur Fx 2012) Hx Hysterectomy: No Anesthesia Reaction: No - PPD History Previous Implant?: Yes Documented Results: Negative w/proof Implanted On Prior R Admission?: Yes Date: 02/02/20 Results: TB QFT neg PPD to be Administered?: No - Reproductive History Patient is a Female of Child Bearing Age (11 -55 yrs old): Yes Last Menstrual Period: 03/07/20 Patient : No - Smoking Cessation Smoking history: Current every day smoker Have you smoked in the past 12 months: Yes Aproximately how many cigarettes per day: 10 Cigars Per Day: 0 Hx Chewing Tobacco Use: No Initiated information on smoking cessation: Yes 'Breaking Loose' booklet given: 03/10/20 - Substance & Tx. History Hx Alcohol Use: Yes Hx Substance Use: Yes Substance Use Type: Alcohol, Cocaine, Heroin, Opiates Hx Substance Use Treatment: Yes (detox, ) Admission Physical Exam [facility] - Vital Signs Vital Signs: Vital Signs - 24 hr 03/10/20 17:02 Temperature 97 F L Pulse Rate 71 Respiratory 18 Rate Blood Pressure 125/75 - Physical General Appearance: Yes: Nourished, Mild Distress, Tremorous, Irritable, Sweating (Increased facial moisture), Anxious HEENTM: Yes: EOMI, Hearing grossly Normal, Normocephalic, Normal Voice, VINH (Pupils = 3 mm), Pharynx Normal, Nasal Congestion Respiratory: Yes: Lungs Clear, Normal Breath Sounds, No Respiratory Distress Neck: Yes: No masses,lesions,Nodules, Supple Breast: Yes: Breast Exam Deferred Cardiology: Yes: Regular Rhythm, Regular Rate Abdominal: Yes: Normal Bowel Sounds, Non Tender, Flat, Soft Genitourinary: Yes: Within Normal Limits Back: Yes: Normal Inspection Musculoskeletal: Yes: full range of Motion, Gait Steady Extremities: Yes: Normal Capillary Refill, Normal Range of Motion, Tremors Neurological: Yes: drying rack changer II-XII NML intact, Fully Oriented, Alert, Motor Strength 5/5 Integumentary: Yes: Normal Color, Warm Lymphatic: Yes: Within Normal Limits - Diagnostic (1) Alcohol dependence with uncomplicated withdrawal Status: Acute (2) Opioid dependence with withdrawal Status: Acute (3) Cocaine dependence, uncomplicated Status: Chronic (4) Nicotine dependence Status: Chronic Qualifiers: Nicotine product type: cigarettes Substance use status: uncomplicated Qualified Code(s): F17.210 - Nicotine dependence, cigarettes, uncomplicated Cleared for Admission [facility] - Detox or Rehab [facility] Level of Care: Medically Managed Detox Regimen/Protocol: Methadone/Librium Claeared for Rehab Admission: No Breathalyzer - Breathalyzer Breathalyzer: 0.061 Urine Drug Screen - Test Device Lot number: [id number] Expiration date: 09/13/21 - Control Is test valid?: Yes - Results Drug screen NEGATIVE: No Urine drug screen results: CINDA-Cocaine, FEN-Fentanyl, MOP-Opiates Inpatient Rehab Admission - Rehab Decision to Admit Inpatient rehab admission?: No
[2020-03-10] MEDS ORDERED: MENTHOL/PHENOL 1 EACH UD MM PRN (18:15)
[2020-03-10] MEDS ORDERED: ACETAMINOPHEN 325 MG TABLET (FP) PO PRN (18:15)
[2020-03-10] MEDS ORDERED: MAGNESIUM HYDROX 2400MG/30ML ORAL SUSPENSION 30 ML CUP PO PRN (18:15)
[2020-03-10] MEDS ORDERED: ONDANSETRON *ODT* 4 MG TABLET SL PRN (18:15)
[2020-03-10] MEDS ORDERED: cloNIDine HCL 0.1 MG TABLET PO PRN (18:15)
[2020-03-10] MEDS ORDERED: MAGNESIUM CITRATE 300 ML BOTTLE PO PRN (18:15)
[2020-03-10] MEDS ORDERED: NICOTINE POLACRILEX 2 MG GUM BUC PRN (18:15)
[2020-03-10] MEDS ORDERED: chlordiazePOXIDE HCL 25 MG CAPSULE PO ONE (18:22)
[2020-03-10] MEDS ORDERED: chlordiazePOXIDE HCL 25 MG CAPSULE PO PRN (18:22)
--- OUTSIDE RECORDS SUMMARY | 2020-03-10 18:41 | XMS ---
:1990 Author Organization [facility] Support Name Relationship Address Phone UE Unavailable Unavailable Unavailable MARICARMEN CROFT MOTHER [address] [place] [address] IKE CROFT SELF / SAME PATIENT [address] SUSPENSION LIST UNTIL 05/07/17 [place] [address] MARICARMEN CROFT Mother [address] [place] [address] Re-disclosure Warning The records that you are [...] is protected by Article 27-F of the [facility] Public Health law. If you continue you may haveaccess to information: Regarding HIV / AIDS; Provided by facilities licensed or operated by the [facility] Office of Mental Health; or Provided by the [facility] Office for People With Developmental Disabilities. If such information is present, then the following [facility] mandated warning applies: This information has been [...] law may result in a fine or correction sentence or both. A general authorization for the release of medical or other information is NOT sufficient authorization for further disclosure. Insurance Providers Payer name Policy type Policy ID Covered Covered republican's Policy P skylar / Coverage republican ID relationship to Paez Inf ormation type paez ALINE [id number] HEALTH NON CAP WELLC[employer] OF [id number] SP [id number] [employer]. WELLCARE OF [id number] SP [id number] [employer]. WELLCARE OF [id number] SP [id number] [employer]. Results ID Date Data Source [id number] 01/31/2020 08:30:00 AM EDT [facility] Name Value Range Interpretation Description Data Sup porting Code Source(s) Document(s ) SARS [facility] coronavirus 2 RNA This lab was ordered by [facility] and reported by [facility]. ID Date Data Source [id number] 12/16/2019 03:30:00 PM EDT [facility] Name Value Range Interpretation Description Data Sup porting Code Source(s) Document(s ) SARS [facility] coronavirus 2 RNA This lab was ordered by [facility] and reported by [facility]. Procedure
[2020-03-10] MEDS ORDERED: METHADONE HCL 10 MG TABLET (FOR DETOX USE ONLY) PO ONE (20:00)
[2020-03-10] MEDS: MELATONIN 5 MG TABLETS PO SCH (22:28)
[2020-03-10] MEDS: THIAMINE HCL 100 MG TABLET (FP) PO SCH (22:29)
[2020-03-10] MEDS: IBUPROFEN 400 MG TABLET (FP) PO PRN (22:31)
[2020-03-10] MEDS: chlordiazePOXIDE HCL 25 MG CAPSULE PO SCH (22:31)
[2020-03-10] MEDS: MAG HYDROX/AL HYDROX/SIMETH 30 ML UNIT-DOSE CUP PO PRN (22:32)
[2020-03-11] MEDS: IBUPROFEN 400 MG TABLET (FP) PO PRN (05:19)
[2020-03-11] MEDS: chlordiazePOXIDE HCL 25 MG CAPSULE PO SCH ×4 (05:19→22:31)
[2020-03-11] MEDS ORDERED: METHADONE HCL 10 MG TABLET (FOR DETOX USE ONLY) ONE (09:37)
[2020-03-11] MEDS ORDERED: METHADONE HCL 5 MG TABLET (FOR DETOX USE ONLY) ONE (09:38)
[2020-03-11] MEDS ORDERED: chlordiazePOXIDE HCL 25 MG CAPSULE ONE ×3 (09:38→21:35)
[2020-03-11] MEDS ORDERED: METHADONE (DETOX) 20 MG, METHADONE (DETOX) 5 MG PO ONE (10:00)
[2020-03-11] MEDS ORDERED: IBUPROFEN 400 MG TABLET (FP) PO ONE (10:27)
[2020-03-11 10:55] LABS: HEMATOCRIT 39.1 % (32.4-45.2); HEMOGLOBIN 13.2 GM/dL (10.7-15.3); MCH 32.1 pg (25.7-33.7); MCHC 33.8 g/dl (32.0-36.0); MEAN CELL VOLUME 95.2 fl (80-96); PLATELET COUNT 169 K/MM3 (134-434); RBC 4.11 M/mm3 (3.60-5.2); RDW 13.5 % (11.6-15.6); WHITE BLOOD COUNT 6.8 K/mm3 (4.0-10.0)
--- NOTE | 2020-03-11 10:57 | PN ---
S CIWA - CIWA Score Nausea/Vomitin-Mild Nausea/No Vomiting Muscle Tremors: 3 Anxiety: 4-Mod. Anxious/Guarded Agitation: 2 Paroxysmal Sweats: No Perspiration Orientation: 0-Oriented Tacttile Disturbances: 0-None Auditory Disturbances: 0-None Visual Disturbances: 0-None Headache: 2-Mild CIWA-Ar Total Score: 12 S COWS - Scale Resting Pulse: 0= [place] 80 or Below Sweatin= No chills or Flushing Restless Observation: 0= Sits Still Pupil Size: 1= Pupils >than Normal Bone or Joint Aches: 1= Mild Discomfort Runny Nose/ Eye Tearin= None GI Upset > 30mins: 2= Nausea/Diarrhea Tremor Observation of Outstretched Hands: 2= Slight Tremor Visible Yawning Observation: 0= None Anxiety or Irritability: 2=Irritable/Anxious Goose Flesh Skin: 0=Smooth Skin COWS Score: 8 S Progress Note (SOAP) Subjective: 29 years old female was admitted on 03/10/20 for alcohol and opiate withdrawal sx management treating with librium and methadone detox regiments reports mild headache tylenal 650mg po x 1 states muscle spasm robaxin 750mg po x 1 long history of anxiety "was taking medication" requests to be seen by a psychiatrist vistaril 50 mg po q6h initiated psychiatrist referral Objective: 03/11/20 10:56 Vital Signs - 24 hr 03/10/20 03/10/20 03/11/20 17:02 21:02 06:34 Temperature 97 F L 97.7 F 97.3 F L Pulse Rate 71 76 53 L Respiratory 18 18 18 Rate Blood Pressure 125/75 116/69 103/67 O2 Sat by Pulse 100 98 Oximetry (%) 03/11/20 09:00 Temperature 97 F L Pulse Rate 61 Respiratory 18 Rate Blood Pressure 98/57 L O2 Sat by Pulse Oximetry (%) 03/11/20 10:57 lab pending low bp bmi 22.6 ensure 120 ml po tid with meals Assessment: 03/11/20 10:58 alcohol and opiate withdrawal Plan: librium and methadone regiments
[2020-03-11] MEDS ORDERED: METHOCARBAMOL 500 MG TABLET PO ONE (11:00)
[2020-03-11 11:04] LABS: ALBUMIN 3.4 g/dl (3.4-5.0); BLOOD UREA NITROGEN 11.2 mg/dL (7-18); CALCIUM 8.9 mg/dL (8.5-10.1); CREATININE 0.8 mg/dL (0.55-1.3); POTASSIUM 3.9 mmol/L (3.5-5.1); TOT PROT 6.4 g/dl (6.4-8.2)
[2020-03-11] MEDS: hydrOXYzine PAMOATE 50 MG CAPSULE (FP) PO SCH ×3 (11:42→22:31)
[2020-03-11] MEDS: PRENATAL VITAMINS W/ FOLIC ACID TABLET (FP) PO SCH (11:43)
[2020-03-11] MEDS: NICOTINE 14 MG/24 HOURS TOPICAL PATCH TD SCH (11:43)
[2020-03-11] MEDS: VITAMINS A AND D TOPICAL OINTMENT 60 GM TUBE TP SCH ×2 (12:23→18:29)
[2020-03-11] MEDS ORDERED: hydrOXYzine PAMOATE 50 MG CAPSULE (FP) ONE ×2 (17:26→21:35)
[2020-03-11] MEDS: METHOCARBAMOL 500 MG TABLET PO PRN (18:27)
[2020-03-11] MEDS: ACETAMINOPHEN 325 MG TABLET (FP) PO PRN (20:08)
[2020-03-11] MEDS: MAG HYDROX/AL HYDROX/SIMETH 30 ML UNIT-DOSE CUP PO PRN (20:09)
[2020-03-11] MEDS: MELATONIN 5 MG TABLETS PO SCH (22:30)
[2020-03-11] MEDS: THIAMINE HCL 100 MG TABLET (FP) PO SCH (22:31)
[2020-03-12] MEDS: VITAMINS A AND D TOPICAL OINTMENT 60 GM TUBE TP SCH ×4 (00:46→19:01)
[2020-03-12] MEDS ORDERED: chlordiazePOXIDE HCL 25 MG CAPSULE ONE ×5 (04:23→21:33)
[2020-03-12] MEDS ORDERED: hydrOXYzine PAMOATE 50 MG CAPSULE (FP) ONE ×2 (04:23→09:20)
[2020-03-12] MEDS: hydrOXYzine PAMOATE 50 MG CAPSULE (FP) PO SCH ×5 (05:31→23:14)
[2020-03-12] MEDS: chlordiazePOXIDE HCL 25 MG CAPSULE PO SCH ×4 (05:31→22:15)
[2020-03-12] MEDS ORDERED: METHADONE HCL 10 MG TABLET (FOR DETOX USE ONLY) ONE (09:20)
[2020-03-12] MEDS ORDERED: METHADONE HCL 10 MG TABLET (FOR DETOX USE ONLY) PO ONE (10:00)
[2020-03-12] MEDS: PRENATAL VITAMINS W/ FOLIC ACID TABLET (FP) PO SCH (10:10)
[2020-03-12] MEDS: METHOCARBAMOL 500 MG TABLET PO PRN ×2 (10:10→20:52)
[2020-03-12] MEDS: NICOTINE 14 MG/24 HOURS TOPICAL PATCH TD SCH (10:10)
[2020-03-12] MEDS ORDERED: METHOCARBAMOL 500 MG TABLET ONE (10:10)
[2020-03-12] MEDS: ACETAMINOPHEN 325 MG TABLET (FP) PO PRN (12:34)
[2020-03-12] MEDS: MAG HYDROX/AL HYDROX/SIMETH 30 ML UNIT-DOSE CUP PO PRN (12:34)
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
--- NOTE | 2020-03-12 12:45 | PN ---
S CIWA - CIWA Score Nausea/Vomitin-Mild Nausea/No Vomiting Muscle Tremors: 2 Anxiety: 1-Mildly Anxious Agitation: 0-Normal Activity Paroxysmal Sweats: No Perspiration Orientation: 0-Oriented Tacttile Disturbances: 0-None Auditory Disturbances: 0-None Visual Disturbances: 1-Very Mild Sensitivity Headache: 2-Mild CIWA-Ar Total Score: 7 S COWS - Scale Resting Pulse: 0= [place] 80 or Below Sweatin= No chills or Flushing Restless Observation: 0= Sits Still Pupil Size: 1= Pupils >than Normal Bone or Joint Aches: 1= Mild Discomfort Runny Nose/ Eye Tearin= None GI Upset > 30mins: 1= Stomach Cramp Tremor Observation of Outstretched Hands: 2= Slight Tremor Visible Yawning Observation: 0= None Anxiety or Irritability: 2=Irritable/Anxious Goose Flesh Skin: 0=Smooth Skin COWS Score: 7 S Progress Note (SOAP) Subjective: 29 years old male was admitted on 03/10/20 for alcohol and opiate withdrawal sx management treating with librium and methadone detox regiment reports headache and general body aches tylenal and roboxin given ms lord is walking around the hallway social with peers in day room requests bottle water encourage to discuss aftercare with staff ms lord prefers to go to [facility] for alcohol and opiate abuse treatment Objective: 03/12/20 12:52 Vital Signs - 24 hr 03/11/20 03/11/20 03/12/20 13:40 21:01 06:42 Temperature 97.3 F L 97.1 F L 97.7 F Pulse Rate 53 L 55 L 54 L Respiratory 18 16 16 Rate Blood Pressure 96/64 101/68 103/64 O2 Sat by Pulse 100 100 100 Oximetry (%) 03/12/20 09:08 Temperature 98.0 F Pulse Rate 58 L Respiratory 16 Rate Blood Pressure 106/69 O2 Sat by Pulse Oximetry (%) Laboratory Tests 03/10/20 03/10/20 03/11/20 17:06 20:20 07:50 WBC 6.8 RBC 4.11 Hgb 13.2 Hct 39.1 MCV 95.2 MCH 32.1 MCHC 33.8 RDW 13.5 Plt Count 169 MPV 10.0 Sodium Potassium Chloride Carbon Dioxide Anion Gap BUN Creatinine Est GFR (CKD-EPI)AfAm Est GFR (CKD-EPI)NonAf Random Glucose Calcium Total Bilirubin AST ALT Alkaline Phosphatase Total Protein Albumin POC Urine HCG, Qual Negative Syphilis Serology COVID-19 (RADHA) Not detected HIV Ag/Ab Combo Qual 03/11/20 03/11/20 03/11/20 07:50 07:50 07:50 WBC RBC Hgb Hct MCV MCH MCHC RDW Plt Count MPV Sodium 141 Potassium 3.9 Chloride 104 Carbon Dioxide 33 H Anion Gap 4 L BUN 11.2 Creatinine 0.8 Est GFR (CKD-EPI)AfAm 114.66 Est GFR (CKD-EPI)NonAf 98.93 Random Glucose 77 Calcium 8.9 Total Bilirubin 1.0 AST 16 ALT 20 Alkaline Phosphatase 78 Total Protein 6.4 Albumin 3.4 POC Urine HCG, Qual Syphilis Serology Non-reactive COVID-19 (RADHA) HIV Ag/Ab Combo Qual Negative lab noted Assessment: 03/12/20 12:52 alcohol and opiate withdrawal Plan: librium and methadone regiments
[2020-03-12] MEDS: IBUPROFEN 400 MG TABLET (FP) PO PRN (20:53)
[2020-03-12] MEDS: traZODone HCL 50 MG TABLET (FP) PO SCH (22:16)
[2020-03-12] MEDS: MELATONIN 5 MG TABLETS PO SCH (22:16)
[2020-03-12] MEDS: THIAMINE HCL 100 MG TABLET (FP) PO SCH (22:16)
[2020-03-13] MEDS ORDERED: chlordiazePOXIDE HCL 10 MG CAPSULE PO PRN
[2020-03-13] MEDS: VITAMINS A AND D TOPICAL OINTMENT 60 GM TUBE TP SCH ×4 (00:40→17:23)
[2020-03-13] MEDS: hydrOXYzine PAMOATE 50 MG CAPSULE (FP) PO SCH ×4 (05:54→22:59)
[2020-03-13] MEDS ORDERED: chlordiazePOXIDE HCL 10 MG CAPSULE PO ONE (06:47)
[2020-03-13] MEDS: chlordiazePOXIDE HCL 10 MG CAPSULE PO SCH ×4 (07:30→22:04)
[2020-03-13] MEDS ORDERED: METHADONE HCL 10 MG TABLET (FOR DETOX USE ONLY) ONE (08:58)
[2020-03-13] MEDS ORDERED: METHADONE HCL 5 MG TABLET (FOR DETOX USE ONLY) ONE (08:59)
[2020-03-13] MEDS: PRENATAL VITAMINS W/ FOLIC ACID TABLET (FP) PO SCH (09:37)
[2020-03-13] MEDS: MAG HYDROX/AL HYDROX/SIMETH 30 ML UNIT-DOSE CUP PO PRN ×2 (09:37→22:21)
[2020-03-13] MEDS ORDERED: METHADONE (DETOX) 10 MG, METHADONE (DETOX) 5 MG PO ONE (10:00)
[2020-03-13] MEDS: NICOTINE 14 MG/24 HOURS TOPICAL PATCH TD SCH (10:02)
[2020-03-13] MEDS: METHOCARBAMOL 500 MG TABLET PO PRN ×2 (10:04→17:24)
--- NOTE | 2020-03-13 10:18 | PN ---
[facility] CIWA - CIWA Score Nausea/Vomitin-No Nausea/No Vomiting Muscle Tremors: 1-None Visible, but [place] Anxiety: 1-Mildly Anxious Agitation: 0-Normal Activity Paroxysmal Sweats: No Perspiration Orientation: 0-Oriented Tacttile Disturbances: 0-None Auditory Disturbances: 0-None Visual Disturbances: 1-Very Mild Sensitivity Headache: 1-Very Mild CIWA-Ar Total Score: 4 [facility] COWS - Scale Resting Pulse: 0= [place] 80 or Below Sweatin= No chills or Flushing Restless Observation: 0= Sits Still Pupil Size: 0= Normal to Room Light Bone or Joint Aches: 1= Mild Discomfort Runny Nose/ Eye Tearin= None GI Upset > 30mins: 1= Stomach Cramp Tremor Observation of Outstretched Hands: 1= Tremor [place], Not Seen Yawning Observation: 0= None Anxiety or Irritability: 1=Feels Anxious/Irritable Goose Flesh Skin: 0=Smooth Skin COWS Score: 4 S Progress Note (SOAP) Subjective: 29 years old female was admitted on 03/10/20 for alcohol and opiate withdrawal sx management treating with librium and methadone detox regiment ms lord prefers to leave the detox tomorrow that she is alert oriented x 3 spe ech clearly coherently ambulating steady gait goal directed aftercare to [facility] for alcohol and opiate abuse treatment Objective: 03/13/20 10:19 Vital Signs - 24 hr 03/12/20 03/12/20 03/12/20 12:28 16:39 20:28 Temperature 97.3 F L 97.5 F L 96.4 F L Pulse Rate 70 60 49 L Respiratory 16 17 18 Rate Blood Pressure 101/62 91/63 102/68 O2 Sat by Pulse 100 100 Oximetry (%) 03/13/20 03/13/20 06:44 09:23 Temperature 97.7 F 97.1 F L Pulse Rate 60 72 Respiratory 18 18 Rate Blood Pressure 98/60 100/61 O2 Sat by Pulse 100 100 Oximetry (%) Laboratory Tests 03/10/20 03/10/20 03/11/20 17:06 20:20 07:50 WBC 6.8 RBC 4.11 Hgb 13.2 Hct 39.1 MCV 95.2 MCH 32.1 MCHC 33.8 RDW 13.5 Plt Count 169 MPV 10.0 Sodium Potassium Chloride Carbon Dioxide Anion Gap BUN Creatinine Est GFR (CKD-EPI)AfAm Est GFR (CKD-EPI)NonAf Random Glucose Calcium Total Bilirubin AST ALT Alkaline Phosphatase Total Protein Albumin POC Urine HCG, Qual Negative Syphilis Serology COVID-19 (RADHA) Not detected HIV Ag/Ab Combo Qual 03/11/20 03/11/20 03/11/20 07:50 07:50 07:50 WBC RBC Hgb Hct MCV MCH MCHC RDW Plt Count MPV Sodium 141 Potassium 3.9 Chloride 104 Carbon Dioxide 33 H Anion Gap 4 L BUN 11.2 Creatinine 0.8 Est GFR (CKD-EPI)AfAm 114.66 Est GFR (CKD-EPI)NonAf 98.93 Random Glucose 77 Calcium 8.9 Total Bilirubin 1.0 AST 16 ALT 20 Alkaline Phosphatase 78 Total Protein 6.4 Albumin 3.4 POC Urine HCG, Qual Syphilis Serology Non-reactive COVID-19 (RADHA) HIV Ag/Ab Combo Qual Negative lab noted Assessment: 03/13/20 10:19 alcohol and opiate withdrawal Plan: librium and methadone regiment
[2020-03-13] MEDS: BISMUTH SUBSALICYLATE 524 MG/30 ML UD PO PRN (12:30)
[2020-03-13] MEDS: THIAMINE HCL 100 MG TABLET (FP) PO SCH (22:03)
[2020-03-13] MEDS: traZODone HCL 50 MG TABLET (FP) PO SCH (22:04)
[2020-03-13] MEDS: MELATONIN 5 MG TABLETS PO SCH (22:05)
[2020-03-14] MEDS: VITAMINS A AND D TOPICAL OINTMENT 60 GM TUBE TP SCH ×2 (00:30→07:10)
[2020-03-14] MEDS ORDERED: chlordiazePOXIDE HCL 10 MG CAPSULE PO SCH (05:00)
[2020-03-14] MEDS: hydrOXYzine PAMOATE 50 MG CAPSULE (FP) PO SCH (06:00)
[2020-03-14] MEDS: MAG HYDROX/AL HYDROX/SIMETH 30 ML UNIT-DOSE CUP PO PRN (06:03)
[2020-03-14 06:43] VITALS: BP 99/63; PULSE 57; TEMP 98.2
[2020-03-14] MEDS: BISMUTH SUBSALICYLATE 524 MG/30 ML UD PO PRN (08:21)
--- NOTE | 2020-03-14 08:40 | PN ---
[facility] CIWA - CIWA Score Nausea/Vomitin-No Nausea/No Vomiting Muscle Tremors: None Anxiety: 1-Mildly Anxious Agitation: 0-Normal Activity Paroxysmal Sweats: No Perspiration Orientation: 0-Oriented Tacttile Disturbances: 0-None Auditory Disturbances: 0-None Visual Disturbances: 0-None Headache: 0-None Present CIWA-Ar Total Score: 1 [facility] COWS - Scale Resting Pulse: 0= [place] 80 or Below Sweatin= No chills or Flushing Restless Observation: 0= Sits Still Pupil Size: 0= Normal to Room Light Bone or Joint Aches: 0= None Runny Nose/ Eye Tearin= None GI Upset > 30mins: 0= None Tremor Observation of Outstretched Hands: 0= None Yawning Observation: 0= None Anxiety or Irritability: 1=Feels Anxious/Irritable Goose Flesh Skin: 0=Smooth Skin COWS Score: 1 [facility] Progress Note (SOAP) Subjective: alert,no complaint Objective: 03/14/20 13:00 Vital Signs Temperature 98.2 F 03/14/20 06:43 Pulse Rate 57 L 03/14/20 06:43 Respiratory Rate 16 03/14/20 06:43 Blood Pressure 99/63 03/14/20 06:43 O2 Sat by Pulse Oximetry (%) 99 03/14/20 06:43 Assessment: 03/14/20 13:00 no withdrawal symptom Plan: stable for discharge today,follow up with after care program as arrangement
--- NOTE | 2020-03-14 08:40 | DS ---
[facility] Detox Discharge Summary Admission Date: 03/10/20 Discharge Date: 03/14/20 - History Present History: Alcohol Dependence, Cocaine Dependence, Opioid Dependence Additional Comments: alert,oriented x 3 ambulation on the unit lung clear on auscultation bilaterally abdomen no pain,no tenderness no edema of legs no withdrawal symptom stable for discharge today follow up with after care program as arrangement decline rehab will follow up with [facility] total time spending on discharge 35 minutes left the unit in good and stable condition Pertinent Past History: ptsd - Physical Exam Results Vital Signs: Vital Signs Temperature 98.2 F 03/14/20 06:43 Pulse Rate 57 L 03/14/20 06:43 Respiratory Rate 16 03/14/20 06:43 Blood Pressure 99/63 03/14/20 06:43 O2 Sat by Pulse Oximetry (%) 99 03/14/20 06:43 Pertinent Admission Physical Exam Findings: withdrawal signs and symptom Laboratory Last Values WBC 6.8 K/mm3 (4.0-10.0) 03/11/20 07:50 RBC 4.11 M/mm3 (3.60-5.2) 03/11/20 07:50 Hgb 13.2 GM/dL (10.7-15.3) 03/11/20 07:50 Hct 39.1 % (32.4-45.2) 03/11/20 07:50 MCV 95.2 fl (80-96) 03/11/20 07:50 MCH 32.1 pg (25.7-33.7) 03/11/20 07:50 MCHC 33.8 g/dl (32.0-36.0) 03/11/20 07:50 RDW 13.5 % (11.6-15.6) 03/11/20 07:50 Plt Count 169 K/MM3 (134-434) 03/11/20 07:50 MPV 10.0 fl (7.5-11.1) 03/11/20 07:50 Sodium 141 mmol/L (136-145) 03/11/20 07:50 Potassium 3.9 mmol/L (3.5-5.1) 03/11/20 07:50 Chloride 104 mmol/L (98-107) 03/11/20 07:50 Carbon Dioxide 33 mmol/L (21-32) H 03/11/20 07:50 Anion Gap 4 MMOL/L (8-16) L 03/11/20 07:50 BUN 11.2 mg/dL (7-18) 03/11/20 07:50 Creatinine 0.8 mg/dL (0.55-1.3) 03/11/20 07:50 Est GFR (CKD-EPI)AfAm 114.66 03/11/20 07:50 Est GFR (CKD-EPI)NonAf 98.93 03/11/20 07:50 Random Glucose 77 mg/dL (74-106) 03/11/20 07:50 Calcium 8.9 mg/dL (8.5-10.1) 03/11/20 07:50 Total Bilirubin 1.0 mg/dL (0.2-1) 03/11/20 07:50 AST 16 U/L (15-37) 03/11/20 07:50 ALT 20 U/L (13-61) 03/11/20 07:50 Alkaline Phosphatase 78 U/L (45-117) 03/11/20 07:50 Total Protein 6.4 g/dl (6.4-8.2) 03/11/20 07:50 Albumin 3.4 g/dl (3.4-5.0) 03/11/20 07:50 POC Urine HCG, Qual Negative 03/10/20 17:06 Syphilis Serology Non-reactive (NONREACTIVE) 03/11/20 07:50 COVID-19 (RADHA) Not detected (Not Detected) 03/10/20 20:20 HIV Ag/Ab Combo Qual Negative (NEGATIVE) 03/11/20 07:50 - Treatment Hospital Course: Detox Protocol Followed, Detoxed Safely, Responded well, Discharged Condition Good Patient has Accepted a Rehab Referral to: declined - Medication Discharge Medications: Ambulatory Orders Naloxone HCl [Narcan] 4 mg NS ASDIR PRN #1 spray 12/21/19 - Diagnosis (1) Opioid dependence with withdrawal Status: Acute (2) Alcohol dependence with uncomplicated withdrawal Status: Acute (3) Nicotine dependence Status: Chronic Qualifiers: Nicotine product type: cigarettes Substance use status: uncomplicated Qualified Code(s): F17.210 - Nicotine dependence, cigarettes, uncomplicated (4) PTSD (post-traumatic stress disorder) Status: Chronic - AMA Did Patient Leave Against Medical Advice: No
[2020-03-14] MEDS ORDERED: METHADONE HCL 10 MG TABLET (FOR DETOX USE ONLY) PO ONE (10:00)
[2020-03-15] MEDS ORDERED: chlordiazePOXIDE HCL 10 MG CAPSULE PO ONE (05:00)
[2020-03-15] MEDS ORDERED: METHADONE HCL 5 MG TABLET (FOR DETOX USE ONLY) PO ONE (06:00)
== END 2020-03-14 09:00 | disposition home or self-care (01) | DRG 773 ==
LOC: YASAS 14:45 → Y3N 18:38
PROVIDERS: ADMIT Allergy & Immunology; ATTEND Allergy & Immunology
PROC: HZ2ZZZZ Detoxification Services for Substance Abuse Treatment (ICD-10-PCS; principal; 2020-03-10)
DX: F10.230 Alcohol dependence with withdrawal, uncomplicated (principal); F11.23 Opioid dependence with withdrawal; F14.20 Cocaine dependence, uncomplicated; F17.210 Nicotine dependence, cigarettes, uncomplicated; F19.24 Other psychoactive substance dependence with psychoactive substance-induced mood disorder; F60.3 Borderline personality disorder; F43.10 Post-traumatic stress disorder, unspecified; Z86.69 Personal history of other diseases of the nervous system and sense organs; Z62.810 Personal history of physical and sexual abuse in childhood; Z91.410 Personal history of adult physical and sexual abuse; Z91.5 Personal history of self-harm
CPT/HCPCS: 36415; 80053; 81025; 85027; 86780; 87389; U0003

== ENCOUNTER 2020-05-01 10:09 | Inpatient (IN) | payer OTHER ==
[2020-05-01 11:07] VITALS: BMI 23.6
[2020-05-01] MEDS ORDERED: ONDANSETRON *ODT* 4 MG TABLET SL PRN (11:11)
[2020-05-01] MEDS ORDERED: ACETAMINOPHEN 325 MG TABLET (FP) PO PRN ×2 (11:11)
[2020-05-01] MEDS ORDERED: METHADONE HCL 10 MG TABLET (FOR DETOX USE ONLY) PO ONE (11:11)
[2020-05-01] MEDS ORDERED: BISMUTH SUBSALICYLATE 262 MG/15 ML BTL PO PRN (11:11)
[2020-05-01] MEDS ORDERED: chlordiazePOXIDE HCL 25 MG CAPSULE PO PRN (11:11)
[2020-05-01] MEDS ORDERED: MAGNESIUM CITRATE 300 ML BOTTLE PO PRN (11:11)
[2020-05-01] MEDS ORDERED: cloNIDine HCL 0.1 MG TABLET PO PRN (11:11)
[2020-05-01] MEDS ORDERED: NICOTINE POLACRILEX 2 MG GUM BUC PRN (11:11)
[2020-05-01] MEDS ORDERED: MENTHOL/PHENOL 1 EACH UD MM PRN (11:11)
[2020-05-01] MEDS ORDERED: MAGNESIUM HYDROX 2400MG/30ML ORAL SUSPENSION 30 ML CUP PO PRN (11:11)
[2020-05-01] MEDS ORDERED: IBUPROFEN 400 MG TABLET (FP) PO PRN (11:11)
[2020-05-01] MEDS: PRENATAL VITAMINS W/ FOLIC ACID TABLET (FP) PO SCH (11:59)
[2020-05-01] MEDS: NICOTINE 7 MG/24 HOURS TOPICAL PATCH TD SCH (11:59)
[2020-05-01] MEDS: chlordiazePOXIDE HCL 25 MG CAPSULE PO SCH ×3 (11:59→22:07)
[2020-05-01] MEDS: hydrOXYzine PAMOATE 25 MG CAPSULE (FP) PO SCH ×3 (14:14→22:07)
[2020-05-01 14:18] LABS: POTASSIUM 4.1 mmol/L (3.5-5.1)
[2020-05-01 14:19] LABS: HEMATOCRIT 40.2 % (32.4-45.2); HEMOGLOBIN 13.5 GM/dL (10.7-15.3); MCH 32.1 pg (25.7-33.7); MCHC 33.5 g/dl (32.0-36.0); MEAN CELL VOLUME 95.8 fl (80-96); MEAN PLT VOLUME 10.2 fl (7.5-11.1); PLATELET COUNT 198 K/MM3 (134-434); RDW 13.7 % (11.6-15.6); WHITE BLOOD COUNT 5.8 K/mm3 (4.0-10.0)
[2020-05-01 14:20] LABS: BLOOD UREA NITROGEN 12.3 mg/dL (7-18); CALCIUM 9.1 mg/dL (8.5-10.1)
[2020-05-01 14:21] LABS: ALBUMIN 4.2 g/dl (3.4-5.0)
[2020-05-01 14:25] LABS: BILIRUBIN,TOTAL 0.7 mg/dL (0.2-1)
[2020-05-01 14:26] LABS: TOT PROT 7.3 g/dl (6.4-8.2)
[2020-05-01 14:27] LABS: CREATININE 0.8 mg/dL (0.55-1.3)
[2020-05-01 15:19] LABS: HIV INTERPRETATION NEGATIVE (NEGATIVE)
[2020-05-01] MEDS: MAG HYDROX/AL HYDROX/SIMETH 30 ML UNIT-DOSE CUP PO PRN (17:22)
[2020-05-01] MEDS: MELATONIN 5 MG TABLETS PO SCH (22:07)
[2020-05-01] MEDS: THIAMINE HCL 100 MG TABLET (FP) PO SCH (22:07)
[2020-05-02] MEDS: chlordiazePOXIDE HCL 25 MG CAPSULE PO SCH ×4 (05:38→22:11)
[2020-05-02] MEDS: hydrOXYzine PAMOATE 25 MG CAPSULE (FP) PO SCH ×3 (05:38→13:13)
[2020-05-02] MEDS ORDERED: METHADONE HCL 10 MG TABLET (FOR DETOX USE ONLY) ONE (08:14)
[2020-05-02] MEDS ORDERED: METHADONE HCL 5 MG TABLET (FOR DETOX USE ONLY) ONE (08:15)
[2020-05-02] MEDS: MAG HYDROX/AL HYDROX/SIMETH 30 ML UNIT-DOSE CUP PO PRN (08:18)
[2020-05-02] MEDS ORDERED: METHADONE (DETOX) 20 MG, METHADONE (DETOX) 5 MG PO ONE (10:00)
[2020-05-02] MEDS: METHOCARBAMOL 500 MG TABLET PO PRN ×2 (10:16→22:13)
[2020-05-02] MEDS: PRENATAL VITAMINS W/ FOLIC ACID TABLET (FP) PO SCH (10:17)
[2020-05-02] MEDS: NICOTINE 7 MG/24 HOURS TOPICAL PATCH TD SCH (10:17)
[2020-05-02] MEDS: hydrOXYzine PAMOATE 50 MG CAPSULE (FP) PO PRN ×2 (17:24→22:12)
[2020-05-02] MEDS: MELATONIN 5 MG TABLETS PO SCH (22:11)
[2020-05-02] MEDS: THIAMINE HCL 100 MG TABLET (FP) PO SCH (22:11)
[2020-05-02] MEDS: traZODone HCL 50 MG TABLET (FP) PO SCH (22:12)
[2020-05-03] MEDS: chlordiazePOXIDE HCL 25 MG CAPSULE PO SCH ×4 (05:52→22:26)
[2020-05-03] MEDS: hydrOXYzine PAMOATE 50 MG CAPSULE (FP) PO PRN ×4 (05:55→22:26)
[2020-05-03] MEDS ORDERED: METHADONE HCL 10 MG TABLET (FOR DETOX USE ONLY) PO ONE (10:00)
[2020-05-03] MEDS: PRENATAL VITAMINS W/ FOLIC ACID TABLET (FP) PO SCH (10:16)
[2020-05-03] MEDS: NICOTINE 7 MG/24 HOURS TOPICAL PATCH TD SCH (10:16)
[2020-05-03] MEDS: METHOCARBAMOL 500 MG TABLET PO PRN ×2 (12:29→22:27)
[2020-05-03] MEDS: THIAMINE HCL 100 MG TABLET (FP) PO SCH (22:26)
[2020-05-03] MEDS: traZODone HCL 50 MG TABLET (FP) PO SCH (22:26)
[2020-05-03] MEDS: MELATONIN 5 MG TABLETS PO SCH (22:27)
[2020-05-04] MEDS ORDERED: chlordiazePOXIDE HCL 10 MG CAPSULE PO PRN
[2020-05-04] MEDS: chlordiazePOXIDE HCL 10 MG CAPSULE PO SCH ×4 (05:39→22:20)
[2020-05-04] MEDS: hydrOXYzine PAMOATE 50 MG CAPSULE (FP) PO PRN ×3 (05:41→22:21)
[2020-05-04] MEDS ORDERED: METHADONE HCL 10 MG TABLET (FOR DETOX USE ONLY) ONE (08:34)
[2020-05-04] MEDS ORDERED: METHADONE HCL 5 MG TABLET (FOR DETOX USE ONLY) ONE (08:34)
[2020-05-04] MEDS ORDERED: METHADONE (DETOX) 10 MG, METHADONE (DETOX) 5 MG PO ONE (10:00)
[2020-05-04] MEDS: METHOCARBAMOL 500 MG TABLET PO PRN (10:05)
[2020-05-04] MEDS: PRENATAL VITAMINS W/ FOLIC ACID TABLET (FP) PO SCH (10:05)
[2020-05-04] MEDS: NICOTINE 7 MG/24 HOURS TOPICAL PATCH TD SCH (10:06)
[2020-05-04] MEDS: MELATONIN 5 MG TABLETS PO SCH (22:20)
[2020-05-04] MEDS: THIAMINE HCL 100 MG TABLET (FP) PO SCH (22:20)
[2020-05-04] MEDS: traZODone HCL 50 MG TABLET (FP) PO SCH (22:20)
[2020-05-05] MEDS: chlordiazePOXIDE HCL 10 MG CAPSULE PO SCH ×2 (05:49→16:54)
[2020-05-05] MEDS: hydrOXYzine PAMOATE 50 MG CAPSULE (FP) PO PRN ×4 (05:50→22:25)
[2020-05-05] MEDS ORDERED: METHADONE HCL 10 MG TABLET (FOR DETOX USE ONLY) PO ONE (10:00)
[2020-05-05] MEDS: NICOTINE 7 MG/24 HOURS TOPICAL PATCH TD SCH (10:44)
[2020-05-05] MEDS: PRENATAL VITAMINS W/ FOLIC ACID TABLET (FP) PO SCH (10:44)
[2020-05-05] MEDS: THIAMINE HCL 100 MG TABLET (FP) PO SCH (22:25)
[2020-05-05] MEDS: traZODone HCL 50 MG TABLET (FP) PO SCH (22:25)
[2020-05-05] MEDS: METHOCARBAMOL 500 MG TABLET PO PRN (22:25)
[2020-05-05] MEDS: MELATONIN 5 MG TABLETS PO SCH (22:25)
[2020-05-06] MEDS ORDERED: chlordiazePOXIDE HCL 10 MG CAPSULE PO ONE (05:00)
[2020-05-06] MEDS: METHOCARBAMOL 500 MG TABLET PO PRN (05:35)
[2020-05-06] MEDS ORDERED: METHADONE HCL 5 MG TABLET (FOR DETOX USE ONLY) PO ONE (06:00)
[2020-05-06 06:27] VITALS: TEMP 97.1
[2020-05-06 09:13] VITALS: BP 99/61; PULSE 102
[2020-05-06] MEDS: hydrOXYzine PAMOATE 50 MG CAPSULE (FP) PO PRN (09:14)
[2020-05-06] MEDS: NICOTINE 7 MG/24 HOURS TOPICAL PATCH TD SCH (09:14)
[2020-05-06] MEDS: PRENATAL VITAMINS W/ FOLIC ACID TABLET (FP) PO SCH (09:14)
== END 2020-05-06 10:24 | disposition home or self-care (01) | DRG 773 ==
LOC: YASAS 10:09 → Y3N 11:14
PROVIDERS: ADMIT Allergy & Immunology; ATTEND Allergy & Immunology
PROC: HZ2ZZZZ Detoxification Services for Substance Abuse Treatment (ICD-10-PCS; principal; 2020-05-01)
DX: F10.230 Alcohol dependence with withdrawal, uncomplicated (principal); F11.23 Opioid dependence with withdrawal; F14.10 Cocaine abuse, uncomplicated; F17.210 Nicotine dependence, cigarettes, uncomplicated; F19.282 Other psychoactive substance dependence with psychoactive substance-induced sleep disorder; F19.24 Other psychoactive substance dependence with psychoactive substance-induced mood disorder; F43.10 Post-traumatic stress disorder, unspecified; G47.00 Insomnia, unspecified; Z62.810 Personal history of physical and sexual abuse in childhood; R63.4 Abnormal weight loss; Z68.23 Body mass index [BMI] 23.0-23.9, adult; Z87.42 Personal history of other diseases of the female genital tract; Z86.69 Personal history of other diseases of the nervous system and sense organs; Z91.5 Personal history of self-harm; Z56.0 Unemployment, unspecified
CPT/HCPCS: 36415; 80053; 81025; 85027; 86780; 87389; C9803; U0003

== ENCOUNTER 2020-07-09 12:18 | Inpatient (IN) | payer OTHER ==
[2020-07-09] MEDS ORDERED: ACETAMINOPHEN 325 MG TABLET (FP) PO PRN ×2 (14:02)
[2020-07-09] MEDS ORDERED: MAGNESIUM HYDROX 2400MG/30ML ORAL SUSPENSION 30 ML CUP PO PRN (14:02)
[2020-07-09] MEDS ORDERED: cloNIDine HCL 0.1 MG TABLET PO PRN (14:02)
[2020-07-09] MEDS ORDERED: MENTHOL/PHENOL 1 EACH UD MM PRN (14:02)
[2020-07-09] MEDS ORDERED: NICOTINE POLACRILEX 2 MG GUM BUC PRN (14:02)
[2020-07-09] MEDS ORDERED: ONDANSETRON *ODT* 4 MG TABLET SL PRN (14:02)
[2020-07-09] MEDS ORDERED: chlordiazePOXIDE HCL 25 MG CAPSULE PO PRN (14:02)
[2020-07-09] MEDS ORDERED: MAGNESIUM CITRATE 300 ML BOTTLE PO PRN (14:02)
[2020-07-09] MEDS ORDERED: METHADONE HCL 10 MG TABLET (FOR DETOX USE ONLY) PO ONE (14:02)
[2020-07-09 14:24] VITALS: BMI 25.0
[2020-07-09] MEDS: NICOTINE 14 MG/24 HOURS TOPICAL PATCH TD SCH (15:09)
[2020-07-09] MEDS: chlordiazePOXIDE HCL 25 MG CAPSULE PO SCH ×2 (17:27→22:03)
[2020-07-09] MEDS: MAG HYDROX/AL HYDROX/SIMETH 30 ML UNIT-DOSE CUP PO PRN (17:29)
[2020-07-09] MEDS: hydrOXYzine PAMOATE 25 MG CAPSULE (FP) PO SCH ×2 (19:13→22:03)
[2020-07-09] MEDS: THIAMINE HCL 100 MG TABLET (FP) PO SCH (22:03)
[2020-07-09] MEDS: MELATONIN 5 MG TABLETS PO SCH (22:03)
[2020-07-09] MEDS: METHOCARBAMOL 500 MG TABLET PO PRN (22:04)
[2020-07-10] MEDS: chlordiazePOXIDE HCL 25 MG CAPSULE PO SCH ×4 (06:45→22:21)
[2020-07-10] MEDS: METHOCARBAMOL 500 MG TABLET PO PRN ×2 (06:47→22:23)
[2020-07-10] MEDS: hydrOXYzine PAMOATE 25 MG CAPSULE (FP) PO SCH ×2 (06:48→10:15)
[2020-07-10] MEDS ORDERED: METHADONE HCL 5 MG TABLET (FOR DETOX USE ONLY) ONE (08:47)
[2020-07-10] MEDS ORDERED: METHADONE HCL 10 MG TABLET (FOR DETOX USE ONLY) ONE (08:47)
[2020-07-10] MEDS ORDERED: METHADONE (DETOX) 20 MG, METHADONE (DETOX) 5 MG PO ONE (10:00)
[2020-07-10] MEDS: PRENATAL VITAMINS W/ FOLIC ACID TABLET (FP) PO SCH (10:15)
[2020-07-10] MEDS: NICOTINE 14 MG/24 HOURS TOPICAL PATCH TD SCH (10:15)
[2020-07-10 11:42] LABS: HEMATOCRIT 37.5 % (32.4-45.2); HEMOGLOBIN 12.7 GM/dL (10.7-15.3); MCH 32.8 pg (25.7-33.7); MCHC 33.8 g/dl (32.0-36.0); MEAN PLT VOLUME 10.5 fl (7.5-11.1); PLATELET COUNT 164 K/MM3 (134-434); RBC 3.86 M/mm3 (3.60-5.2); RDW 13.4 % (11.6-15.6); WHITE BLOOD COUNT 4.2 K/mm3 (4.0-10.0)
[2020-07-10 11:45] LABS: POTASSIUM 3.7 mmol/L (3.5-5.1)
[2020-07-10 12:02] LABS: CALCIUM 8.8 mg/dL (8.5-10.1)
[2020-07-10 12:03] LABS: ALBUMIN 3.4 g/dl (3.4-5.0); BLOOD UREA NITROGEN 12.2 mg/dL (7-18)
[2020-07-10 12:06] LABS: CREATININE 0.8 mg/dL (0.55-1.3)
[2020-07-10 12:07] LABS: BILIRUBIN,TOTAL 0.4 mg/dL (0.2-1)
[2020-07-10] MEDS: hydrOXYzine PAMOATE 50 MG CAPSULE (FP) PO PRN ×3 (12:07→22:21)
[2020-07-10] MEDS: MAG HYDROX/AL HYDROX/SIMETH 30 ML UNIT-DOSE CUP PO PRN (12:07)
[2020-07-10 12:08] LABS: TOT PROT 6.4 g/dl (6.4-8.2)
[2020-07-10] MEDS ORDERED: METHOCARBAMOL 750 MG TAB PO ONE (12:45)
[2020-07-10] MEDS: traZODone HCL 100 MG TABLET (FP) PO SCH (22:21)
[2020-07-10] MEDS: MELATONIN 5 MG TABLETS PO SCH (22:22)
[2020-07-10] MEDS: THIAMINE HCL 100 MG TABLET (FP) PO SCH (22:22)
[2020-07-11] MEDS: chlordiazePOXIDE HCL 25 MG CAPSULE PO SCH ×4 (05:49→22:21)
[2020-07-11] MEDS: hydrOXYzine PAMOATE 50 MG CAPSULE (FP) PO PRN ×3 (05:52→22:20)
[2020-07-11] MEDS ORDERED: METHADONE HCL 10 MG TABLET (FOR DETOX USE ONLY) PO ONE (10:00)
[2020-07-11] MEDS: PRENATAL VITAMINS W/ FOLIC ACID TABLET (FP) PO SCH (10:12)
[2020-07-11] MEDS: NICOTINE 14 MG/24 HOURS TOPICAL PATCH TD SCH (10:12)
[2020-07-11] MEDS: THIAMINE HCL 100 MG TABLET (FP) PO SCH (22:20)
[2020-07-11] MEDS: METHOCARBAMOL 500 MG TABLET PO PRN (22:20)
[2020-07-11] MEDS: MELATONIN 5 MG TABLETS PO SCH (22:21)
[2020-07-11] MEDS: traZODone HCL 100 MG TABLET (FP) PO SCH (22:21)
[2020-07-12] MEDS ORDERED: chlordiazePOXIDE HCL 10 MG CAPSULE PO PRN
[2020-07-12] MEDS: chlordiazePOXIDE HCL 10 MG CAPSULE PO SCH ×4 (05:34→22:20)
[2020-07-12] MEDS: METHOCARBAMOL 500 MG TABLET PO PRN ×3 (06:35→17:19)
[2020-07-12] MEDS ORDERED: METHADONE HCL 5 MG TABLET (FOR DETOX USE ONLY) ONE (09:21)
[2020-07-12] MEDS ORDERED: METHADONE HCL 10 MG TABLET (FOR DETOX USE ONLY) ONE (09:22)
[2020-07-12] MEDS ORDERED: METHADONE (DETOX) 10 MG, METHADONE (DETOX) 5 MG PO ONE (10:00)
[2020-07-12] MEDS: NICOTINE 14 MG/24 HOURS TOPICAL PATCH TD SCH (10:34)
[2020-07-12] MEDS: PRENATAL VITAMINS W/ FOLIC ACID TABLET (FP) PO SCH (10:34)
[2020-07-12] MEDS: hydrOXYzine PAMOATE 50 MG CAPSULE (FP) PO PRN ×2 (12:08→17:19)
[2020-07-12] MEDS: THIAMINE HCL 100 MG TABLET (FP) PO SCH (22:19)
[2020-07-12] MEDS: MELATONIN 5 MG TABLETS PO SCH (22:19)
[2020-07-12] MEDS: traZODone HCL 100 MG TABLET (FP) PO SCH (22:19)
[2020-07-13] MEDS: chlordiazePOXIDE HCL 10 MG CAPSULE PO SCH ×2 (05:44→17:27)
[2020-07-13] MEDS: METHOCARBAMOL 500 MG TABLET PO PRN ×2 (05:46→21:59)
[2020-07-13] MEDS: hydrOXYzine PAMOATE 50 MG CAPSULE (FP) PO PRN ×4 (05:46→22:01)
[2020-07-13] MEDS ORDERED: NALOXONE (NARCAN) HCL 4 MG/0.1 ML SPRAY NS ONE (09:27)
[2020-07-13] MEDS ORDERED: METHADONE HCL 10 MG TABLET (FOR DETOX USE ONLY) PO ONE (10:00)
[2020-07-13] MEDS: PRENATAL VITAMINS W/ FOLIC ACID TABLET (FP) PO SCH (10:29)
[2020-07-13] MEDS: NICOTINE 14 MG/24 HOURS TOPICAL PATCH TD SCH (10:29)
[2020-07-13] MEDS: IBUPROFEN 400 MG TABLET (FP) PO PRN ×2 (10:32→21:59)
[2020-07-13] MEDS: MAG HYDROX/AL HYDROX/SIMETH 30 ML UNIT-DOSE CUP PO PRN ×2 (10:33→22:04)
[2020-07-13] MEDS: BISMUTH SUBSALICYLATE 262 MG/15 ML BTL PO PRN ×2 (15:45→17:29)
[2020-07-13] MEDS: THIAMINE HCL 100 MG TABLET (FP) PO SCH (22:02)
[2020-07-13] MEDS: MELATONIN 5 MG TABLETS PO SCH (22:03)
[2020-07-13] MEDS: traZODone HCL 100 MG TABLET (FP) PO SCH (22:03)
[2020-07-14] MEDS ORDERED: chlordiazePOXIDE HCL 10 MG CAPSULE PO ONE (05:00)
[2020-07-14] MEDS ORDERED: METHADONE HCL 5 MG TABLET (FOR DETOX USE ONLY) PO ONE (06:00)
[2020-07-14] MEDS: METHOCARBAMOL 500 MG TABLET PO PRN (06:32)
[2020-07-14] MEDS: hydrOXYzine PAMOATE 50 MG CAPSULE (FP) PO PRN (06:33)
[2020-07-14 08:00] VITALS: BP 105/68; PULSE 116; TEMP 97.3
== END 2020-07-14 10:01 | disposition home or self-care (01) | DRG 773 ==
LOC: YASAS 12:18 → Y6N 14:04
PROVIDERS: ADMIT Allergy & Immunology; ATTEND Allergy & Immunology
PROC: HZ2ZZZZ Detoxification Services for Substance Abuse Treatment (ICD-10-PCS; principal; 2020-07-09)
DX: F11.23 Opioid dependence with withdrawal (principal); F10.230 Alcohol dependence with withdrawal, uncomplicated; F14.20 Cocaine dependence, uncomplicated; F12.20 Cannabis dependence, uncomplicated; F17.210 Nicotine dependence, cigarettes, uncomplicated; F19.282 Other psychoactive substance dependence with psychoactive substance-induced sleep disorder; F19.24 Other psychoactive substance dependence with psychoactive substance-induced mood disorder; F39 Unspecified mood [affective] disorder; F60.9 Personality disorder, unspecified; F43.10 Post-traumatic stress disorder, unspecified; M17.11 Unilateral primary osteoarthritis, right knee; Z87.42 Personal history of other diseases of the female genital tract; Z86.69 Personal history of other diseases of the nervous system and sense organs; Z87.81 Personal history of (healed) traumatic fracture; Z62.810 Personal history of physical and sexual abuse in childhood; Z91.410 Personal history of adult physical and sexual abuse
CPT/HCPCS: 36415; 80053; 81025; 85027; 86780; 87389; C9803; U0003

== ENCOUNTER 2020-08-31 10:53 | Inpatient (IN) | payer OTHER ==
[2020-08-31 11:24] VITALS: BMI 22.3
[2020-08-31] MEDS ORDERED: cloNIDine HCL 0.1 MG TABLET PO PRN (12:21)
[2020-08-31] MEDS ORDERED: MAG HYDROX/AL HYDROX/SIMETH 30 ML UNIT-DOSE CUP PO PRN (12:21)
[2020-08-31] MEDS ORDERED: IBUPROFEN 400 MG TABLET (FP) PO PRN (12:21)
[2020-08-31] MEDS ORDERED: NICOTINE POLACRILEX 2 MG GUM BUC PRN (12:21)
[2020-08-31] MEDS ORDERED: MAGNESIUM CITRATE 300 ML BOTTLE PO PRN (12:21)
[2020-08-31] MEDS ORDERED: MENTHOL/PHENOL 1 EACH UD MM PRN (12:21)
[2020-08-31] MEDS ORDERED: ACETAMINOPHEN 325 MG TABLET (FP) PO PRN (12:21)
[2020-08-31] MEDS ORDERED: MAGNESIUM HYDROX 2400MG/30ML ORAL SUSPENSION 30 ML CUP PO PRN (12:21)
[2020-08-31] MEDS ORDERED: BISMUTH SUBSALICYLATE 524 MG/30 ML UD PO PRN (12:21)
[2020-08-31] MEDS ORDERED: chlordiazePOXIDE HCL 25 MG CAPSULE PO PRN (12:21)
[2020-08-31] MEDS ORDERED: METHADONE HCL 10 MG TABLET (FOR DETOX USE ONLY) PO ONE (12:45)
[2020-08-31] MEDS: chlordiazePOXIDE HCL 25 MG CAPSULE PO SCH ×3 (13:08→23:13)
[2020-08-31] MEDS: METHOCARBAMOL 500 MG TABLET PO PRN ×2 (13:08→23:14)
[2020-08-31] MEDS: ONDANSETRON *ODT* 4 MG TABLET SL PRN (13:08)
[2020-08-31] MEDS: PRENATAL VITAMINS W/ FOLIC ACID TABLET (FP) PO SCH (13:09)
[2020-08-31] MEDS: ACETAMINOPHEN 325 MG TABLET (FP) PO PRN (13:10)
[2020-08-31] MEDS ORDERED: hydrOXYzine PAMOATE 25 MG CAPSULE (FP) PO SCH (14:00)
[2020-08-31 15:36] LABS: HEMATOCRIT 41.5 % (32.4-45.2); HEMOGLOBIN 13.8 GM/dL (10.7-15.3); MCH 32.5 pg (25.7-33.7); MCHC 33.4 g/dl (32.0-36.0); MEAN CELL VOLUME 97.3 fl (80-96); MEAN PLT VOLUME 10.5 fl (7.5-11.1); PLATELET COUNT 197 K/MM3 (134-434); RBC 4.27 M/mm3 (3.60-5.2); RDW 13.8 % (11.6-15.6); WHITE BLOOD COUNT 6.5 K/mm3 (4.0-10.0)
[2020-08-31 15:37] LABS: POTASSIUM 3.9 mmol/L (3.5-5.1)
[2020-08-31 15:47] LABS: ALBUMIN 3.9 g/dl (3.4-5.0); CALCIUM 9.4 mg/dL (8.5-10.1)
[2020-08-31 15:48] LABS: BLOOD UREA NITROGEN 11.6 mg/dL (7-18)
[2020-08-31 15:50] LABS: CREATININE 0.8 mg/dL (0.55-1.3)
[2020-08-31 15:52] LABS: BILIRUBIN,TOTAL 1.3 mg/dL (0.2-1); TOT PROT 7.2 g/dl (6.4-8.2)
[2020-08-31] MEDS: traZODone HCL 100 MG TABLET (FP) PO SCH (23:12)
[2020-08-31] MEDS: THIAMINE HCL 100 MG TABLET (FP) PO SCH (23:13)
[2020-08-31] MEDS: MELATONIN 5 MG TABLETS PO SCH (23:32)
[2020-09-01] MEDS: chlordiazePOXIDE HCL 25 MG CAPSULE PO SCH ×4 (06:17→22:35)
[2020-09-01] MEDS ORDERED: METHADONE HCL 5 MG TABLET (FOR DETOX USE ONLY) ONE (09:35)
[2020-09-01] MEDS ORDERED: METHADONE HCL 10 MG TABLET (FOR DETOX USE ONLY) ONE (09:36)
[2020-09-01] MEDS ORDERED: METHADONE (DETOX) 20 MG, METHADONE (DETOX) 5 MG PO ONE (10:00)
[2020-09-01] MEDS: hydrOXYzine PAMOATE 50 MG CAPSULE (FP) PO PRN ×3 (10:21→22:35)
[2020-09-01] MEDS: PRENATAL VITAMINS W/ FOLIC ACID TABLET (FP) PO SCH (10:21)
[2020-09-01] MEDS: METHOCARBAMOL 500 MG TABLET PO PRN ×2 (10:21→22:35)
[2020-09-01] MEDS: traZODone HCL 100 MG TABLET (FP) PO SCH (22:34)
[2020-09-01] MEDS: MELATONIN 5 MG TABLETS PO SCH (22:35)
[2020-09-01] MEDS: THIAMINE HCL 100 MG TABLET (FP) PO SCH (22:35)
[2020-09-02] MEDS: chlordiazePOXIDE HCL 25 MG CAPSULE PO SCH ×4 (07:37→22:14)
[2020-09-02] MEDS ORDERED: METHADONE HCL 10 MG TABLET (FOR DETOX USE ONLY) PO ONE (10:00)
[2020-09-02] MEDS: hydrOXYzine PAMOATE 50 MG CAPSULE (FP) PO PRN ×3 (10:20→22:14)
[2020-09-02] MEDS: PRENATAL VITAMINS W/ FOLIC ACID TABLET (FP) PO SCH (10:20)
[2020-09-02] MEDS: MELATONIN 5 MG TABLETS PO SCH (22:14)
[2020-09-02] MEDS: METHOCARBAMOL 500 MG TABLET PO PRN (22:14)
[2020-09-02] MEDS: THIAMINE HCL 100 MG TABLET (FP) PO SCH (22:14)
[2020-09-02] MEDS: traZODone HCL 100 MG TABLET (FP) PO SCH (22:14)
[2020-09-03] MEDS ORDERED: chlordiazePOXIDE HCL 10 MG CAPSULE PO PRN
[2020-09-03] MEDS: chlordiazePOXIDE HCL 10 MG CAPSULE PO SCH ×4 (06:24→22:24)
[2020-09-03] MEDS ORDERED: METHADONE HCL 10 MG TABLET (FOR DETOX USE ONLY) ONE (08:42)
[2020-09-03] MEDS ORDERED: METHADONE HCL 5 MG TABLET (FOR DETOX USE ONLY) ONE (08:42)
[2020-09-03] MEDS ORDERED: METHADONE (DETOX) 10 MG, METHADONE (DETOX) 5 MG PO ONE (10:00)
[2020-09-03] MEDS: PRENATAL VITAMINS W/ FOLIC ACID TABLET (FP) PO SCH (10:01)
[2020-09-03] MEDS: ACETAMINOPHEN 325 MG TABLET (FP) PO PRN (17:09)
[2020-09-03] MEDS: hydrOXYzine PAMOATE 50 MG CAPSULE (FP) PO PRN ×2 (17:09→22:25)
[2020-09-03] MEDS: ONDANSETRON *ODT* 4 MG TABLET SL PRN (19:05)
[2020-09-03] MEDS: traZODone HCL 100 MG TABLET (FP) PO SCH (22:25)
[2020-09-03] MEDS: MELATONIN 5 MG TABLETS PO SCH (22:25)
[2020-09-03] MEDS: THIAMINE HCL 100 MG TABLET (FP) PO SCH (22:25)
[2020-09-03] MEDS: METHOCARBAMOL 500 MG TABLET PO PRN (22:27)
[2020-09-04] MEDS ORDERED: chlordiazePOXIDE HCL 10 MG CAPSULE PO SCH (05:00)
[2020-09-04] MEDS: hydrOXYzine PAMOATE 50 MG CAPSULE (FP) PO PRN (06:34)
[2020-09-04] MEDS ORDERED: METHADONE HCL 10 MG TABLET (FOR DETOX USE ONLY) PO ONE (10:00)
[2020-09-04] MEDS: PRENATAL VITAMINS W/ FOLIC ACID TABLET (FP) PO SCH (11:30)
[2020-09-04 13:33] VITALS: BP 126/69; PULSE 83; TEMP 97.1
[2020-09-05] MEDS ORDERED: chlordiazePOXIDE HCL 10 MG CAPSULE PO ONE (05:00)
[2020-09-05] MEDS ORDERED: METHADONE HCL 5 MG TABLET (FOR DETOX USE ONLY) PO ONE (06:00)
== END 2020-09-04 14:51 | disposition home or self-care (01) | DRG 773 ==
LOC: YASAS 10:53 → Y6N 12:21
PROVIDERS: ADMIT Allergy & Immunology; ATTEND Allergy & Immunology
PROC: HZ2ZZZZ Detoxification Services for Substance Abuse Treatment (ICD-10-PCS; principal; 2020-08-31)
DX: F11.23 Opioid dependence with withdrawal (principal); F10.230 Alcohol dependence with withdrawal, uncomplicated; F14.20 Cocaine dependence, uncomplicated; F16.10 Hallucinogen abuse, uncomplicated; F17.210 Nicotine dependence, cigarettes, uncomplicated; F19.282 Other psychoactive substance dependence with psychoactive substance-induced sleep disorder; F19.280 Other psychoactive substance dependence with psychoactive substance-induced anxiety disorder; F19.24 Other psychoactive substance dependence with psychoactive substance-induced mood disorder; F60.3 Borderline personality disorder; F43.10 Post-traumatic stress disorder, unspecified; Z62.810 Personal history of physical and sexual abuse in childhood; R63.4 Abnormal weight loss; Z68.22 Body mass index [BMI] 22.0-22.9, adult; Z87.42 Personal history of other diseases of the female genital tract
CPT/HCPCS: 36415; 80053; 81025; 82962; 85027; 86780; C9803; Q0162; U0003; U0005

== ENCOUNTER 2020-10-16 14:41 | Inpatient (IN) | payer OTHER ==
[2020-10-16 15:58] VITALS: BMI 22.9
[2020-10-16] MEDS ORDERED: METHADONE HCL 10 MG TABLET (FOR DETOX USE ONLY) PO ONE (16:22)
[2020-10-16] MEDS ORDERED: MAGNESIUM CITRATE 300 ML BOTTLE PO PRN (16:22)
[2020-10-16] MEDS ORDERED: MENTHOL/PHENOL 1 EACH UD MM PRN (16:22)
[2020-10-16] MEDS ORDERED: MAGNESIUM HYDROX 2400MG/30ML ORAL SUSPENSION 30 ML CUP PO PRN (16:22)
[2020-10-16] MEDS ORDERED: ACETAMINOPHEN 325 MG TABLET (FP) PO PRN ×2 (16:22)
[2020-10-16] MEDS ORDERED: cloNIDine HCL 0.1 MG TABLET PO PRN (16:22)
[2020-10-16] MEDS ORDERED: NICOTINE POLACRILEX 2 MG GUM BUC PRN (16:22)
[2020-10-16] MEDS ORDERED: diazePAM 5 MG TABLET PO PRN (16:22)
[2020-10-16] MEDS ORDERED: BISMUTH SUBSALICYLATE 524 MG/30 ML UD PO PRN (16:22)
[2020-10-16] MEDS: IBUPROFEN 400 MG TABLET (FP) PO PRN (18:01)
[2020-10-16] MEDS: hydrOXYzine PAMOATE 25 MG CAPSULE (FP) PO SCH ×2 (18:02→22:25)
[2020-10-16] MEDS: diazePAM 5 MG TABLET PO SCH ×2 (18:02→22:25)
[2020-10-16] MEDS: PRENATAL VITAMINS W/ FOLIC ACID TABLET (FP) PO SCH (18:05)
[2020-10-16] MEDS: MAG HYDROX/AL HYDROX/SIMETH 30 ML UNIT-DOSE CUP PO PRN (18:17)
[2020-10-16] MEDS: ONDANSETRON *ODT* 4 MG TABLET SL PRN (19:35)
[2020-10-16] MEDS: THIAMINE HCL 100 MG TABLET (FP) PO SCH (22:25)
[2020-10-16] MEDS: MELATONIN 5 MG TABLETS PO SCH (22:25)
[2020-10-16] MEDS: METHOCARBAMOL 500 MG TABLET PO PRN (22:26)
[2020-10-17] MEDS: hydrOXYzine PAMOATE 25 MG CAPSULE (FP) PO SCH (05:14)
[2020-10-17] MEDS: diazePAM 5 MG TABLET PO SCH (05:14)
[2020-10-17] MEDS: MAG HYDROX/AL HYDROX/SIMETH 30 ML UNIT-DOSE CUP PO PRN ×2 (05:14→10:47)
[2020-10-17] MEDS: IBUPROFEN 400 MG TABLET (FP) PO PRN ×2 (08:28→15:58)
[2020-10-17] MEDS ORDERED: METHADONE HCL 5 MG TABLET (FOR DETOX USE ONLY) ONE (08:42)
[2020-10-17] MEDS ORDERED: METHADONE HCL 10 MG TABLET (FOR DETOX USE ONLY) ONE (08:43)
[2020-10-17] MEDS: ONDANSETRON *ODT* 4 MG TABLET SL PRN (08:44)
[2020-10-17] MEDS ORDERED: METHADONE (DETOX) 20 MG, METHADONE (DETOX) 5 MG PO ONE (10:00)
[2020-10-17 10:06] LABS: HEMATOCRIT 36.3 % (32.4-45.2); HEMOGLOBIN 12.5 GM/dL (10.7-15.3); MCHC 34.6 g/dl (32.0-36.0); MEAN CELL VOLUME 95.6 fl (80-96); MEAN PLT VOLUME 10.6 fl (7.5-11.1); PLATELET COUNT 184 K/MM3 (134-434); RDW 13.4 % (11.6-15.6); WHITE BLOOD COUNT 5.7 K/mm3 (4.0-10.0)
[2020-10-17] MEDS: hydrOXYzine PAMOATE 50 MG CAPSULE (FP) PO PRN ×2 (10:13→17:31)
[2020-10-17] MEDS: PRENATAL VITAMINS W/ FOLIC ACID TABLET (FP) PO SCH (10:13)
[2020-10-17 10:25] LABS: CALCIUM 8.6 mg/dL (8.5-10.1)
[2020-10-17 10:26] LABS: ALBUMIN 3.5 g/dl (3.4-5.0); BLOOD UREA NITROGEN 8.2 mg/dL (7-18)
[2020-10-17 10:29] LABS: CREATININE 0.7 mg/dL (0.55-1.3)
[2020-10-17 10:30] LABS: BILIRUBIN,TOTAL 1.3 mg/dL (0.2-1)
[2020-10-17] MEDS ORDERED: chlordiazePOXIDE HCL 25 MG CAPSULE PO PRN (10:30)
[2020-10-17 10:31] LABS: TOT PROT 6.5 g/dl (6.4-8.2)
[2020-10-17] MEDS: chlordiazePOXIDE HCL 25 MG CAPSULE PO SCH ×3 (10:47→22:44)
[2020-10-17 13:56] LABS: HIV INTERPRETATION NEGATIVE (NEGATIVE)
[2020-10-17] MEDS: FAMOTIDINE 20 MG TABLET PO SCH ×2 (15:21→22:44)
[2020-10-17] MEDS: METHOCARBAMOL 500 MG TABLET PO PRN ×2 (15:58→22:44)
[2020-10-17] MEDS: THIAMINE HCL 100 MG TABLET (FP) PO SCH (22:44)
[2020-10-17] MEDS: traZODone HCL 100 MG TABLET (FP) PO SCH (22:44)
[2020-10-17] MEDS: MELATONIN 5 MG TABLETS PO SCH (22:45)
[2020-10-18] MEDS ORDERED: diazePAM 5 MG TABLET PO SCH (06:00)
[2020-10-18] MEDS: chlordiazePOXIDE HCL 25 MG CAPSULE PO SCH ×4 (06:11→22:35)
[2020-10-18] MEDS: IBUPROFEN 400 MG TABLET (FP) PO PRN ×2 (06:12→22:38)
[2020-10-18] MEDS ORDERED: METHADONE HCL 10 MG TABLET (FOR DETOX USE ONLY) PO ONE (10:00)
[2020-10-18] MEDS: hydrOXYzine PAMOATE 50 MG CAPSULE (FP) PO PRN ×2 (10:37→22:35)
[2020-10-18] MEDS: FAMOTIDINE 20 MG TABLET PO SCH ×2 (10:37→22:34)
[2020-10-18] MEDS: METHOCARBAMOL 500 MG TABLET PO PRN (10:37)
[2020-10-18] MEDS: PRENATAL VITAMINS W/ FOLIC ACID TABLET (FP) PO SCH (10:38)
[2020-10-18] MEDS: ONDANSETRON *ODT* 4 MG TABLET SL PRN (10:41)
[2020-10-18] MEDS: MAG HYDROX/AL HYDROX/SIMETH 30 ML UNIT-DOSE CUP PO PRN (15:28)
[2020-10-18] MEDS: traZODone HCL 100 MG TABLET (FP) PO SCH (22:34)
[2020-10-18] MEDS: THIAMINE HCL 100 MG TABLET (FP) PO SCH (22:34)
[2020-10-18] MEDS: MELATONIN 5 MG TABLETS PO SCH (22:36)
[2020-10-19] MEDS ORDERED: chlordiazePOXIDE HCL 10 MG CAPSULE PO PRN
[2020-10-19] MEDS ORDERED: diazePAM 5 MG TABLET PO SCH (06:00)
[2020-10-19] MEDS: METHOCARBAMOL 500 MG TABLET PO PRN ×2 (06:05→22:29)
[2020-10-19] MEDS: chlordiazePOXIDE HCL 10 MG CAPSULE PO SCH ×4 (06:05→22:29)
[2020-10-19 06:07] LABS: SARS-CoV-2 NAA Not Detected (Not Detected)
[2020-10-19] MEDS ORDERED: METHADONE HCL 10 MG TABLET (FOR DETOX USE ONLY) ONE (09:29)
[2020-10-19] MEDS ORDERED: METHADONE HCL 5 MG TABLET (FOR DETOX USE ONLY) ONE (09:29)
[2020-10-19] MEDS ORDERED: METHADONE (DETOX) 10 MG, METHADONE (DETOX) 5 MG PO ONE (10:00)
[2020-10-19] MEDS: PRENATAL VITAMINS W/ FOLIC ACID TABLET (FP) PO SCH (10:11)
[2020-10-19] MEDS: FAMOTIDINE 20 MG TABLET PO SCH ×2 (10:12→22:29)
[2020-10-19] MEDS: hydrOXYzine PAMOATE 50 MG CAPSULE (FP) PO PRN ×3 (10:12→22:29)
[2020-10-19] MEDS: ONDANSETRON *ODT* 4 MG TABLET SL PRN (10:14)
[2020-10-19] MEDS: MAG HYDROX/AL HYDROX/SIMETH 30 ML UNIT-DOSE CUP PO PRN ×2 (12:42→22:31)
[2020-10-19] MEDS: THIAMINE HCL 100 MG TABLET (FP) PO SCH (22:29)
[2020-10-19] MEDS: MELATONIN 5 MG TABLETS PO SCH (22:29)
[2020-10-19] MEDS: traZODone HCL 100 MG TABLET (FP) PO SCH (22:29)
[2020-10-20] MEDS: chlordiazePOXIDE HCL 10 MG CAPSULE PO SCH ×2 (05:35→17:44)
[2020-10-20] MEDS: METHOCARBAMOL 500 MG TABLET PO PRN ×3 (05:37→22:13)
[2020-10-20] MEDS: ONDANSETRON *ODT* 4 MG TABLET SL PRN (05:37)
[2020-10-20] MEDS ORDERED: diazePAM 5 MG TABLET PO ONE (06:00)
[2020-10-20] MEDS ORDERED: METHADONE HCL 10 MG TABLET (FOR DETOX USE ONLY) PO ONE (10:00)
[2020-10-20] MEDS: FAMOTIDINE 20 MG TABLET PO SCH ×2 (10:07→22:13)
[2020-10-20] MEDS: PRENATAL VITAMINS W/ FOLIC ACID TABLET (FP) PO SCH (10:08)
[2020-10-20] MEDS: hydrOXYzine PAMOATE 50 MG CAPSULE (FP) PO PRN ×2 (10:10→22:15)
[2020-10-20] MEDS: MELATONIN 5 MG TABLETS PO SCH (22:13)
[2020-10-20] MEDS: THIAMINE HCL 100 MG TABLET (FP) PO SCH (22:13)
[2020-10-20] MEDS: traZODone HCL 100 MG TABLET (FP) PO SCH (22:13)
[2020-10-21] MEDS ORDERED: chlordiazePOXIDE HCL 10 MG CAPSULE PO ONE (05:00)
[2020-10-21] MEDS ORDERED: METHADONE HCL 5 MG TABLET (FOR DETOX USE ONLY) PO ONE (06:00)
[2020-10-21] MEDS: METHOCARBAMOL 500 MG TABLET PO PRN (06:17)
[2020-10-21] MEDS: hydrOXYzine PAMOATE 50 MG CAPSULE (FP) PO PRN (06:17)
[2020-10-21 07:54] VITALS: BP 100/51; PULSE 77; TEMP 98
== END 2020-10-21 09:39 | disposition home or self-care (01) | DRG 773 ==
LOC: YASAS 14:41 → Y6N 16:34
PROVIDERS: ADMIT Allergy & Immunology; ATTEND Allergy & Immunology
PROC: HZ2ZZZZ Detoxification Services for Substance Abuse Treatment (ICD-10-PCS; principal; 2020-10-16)
DX: F11.23 Opioid dependence with withdrawal (principal); F10.230 Alcohol dependence with withdrawal, uncomplicated; F14.20 Cocaine dependence, uncomplicated; F17.210 Nicotine dependence, cigarettes, uncomplicated; F19.24 Other psychoactive substance dependence with psychoactive substance-induced mood disorder; F19.280 Other psychoactive substance dependence with psychoactive substance-induced anxiety disorder; F19.282 Other psychoactive substance dependence with psychoactive substance-induced sleep disorder; G40.89 Other seizures; R63.4 Abnormal weight loss; Z68.23 Body mass index [BMI] 23.0-23.9, adult; Z62.810 Personal history of physical and sexual abuse in childhood; Z91.410 Personal history of adult physical and sexual abuse; Z87.81 Personal history of (healed) traumatic fracture; Z87.42 Personal history of other diseases of the female genital tract
CPT/HCPCS: 36415; 80053; 81025; 85027; 86780; 87389; C9803; Q0162; U0003; U0005

== ENCOUNTER 2021-01-01 15:39 | Inpatient (IN) | payer OTHER ==
[2021-01-01 18:50] VITALS: BMI 22.6
[2021-01-01] MEDS ORDERED: NICOTINE POLACRILEX 2 MG GUM BUC PRN (18:50)
[2021-01-01] MEDS ORDERED: MAGNESIUM HYDROX 2400MG/30ML ORAL SUSPENSION 30 ML CUP PO PRN (18:50)
[2021-01-01] MEDS ORDERED: MAGNESIUM CITRATE 300 ML BOTTLE PO PRN (18:50)
[2021-01-01] MEDS ORDERED: BISMUTH SUBSALICYLATE 524 MG/30 ML PO PRN (18:50)
[2021-01-01] MEDS ORDERED: ACETAMINOPHEN 325 MG TABLET (FP) PO PRN ×2 (18:50)
[2021-01-01] MEDS ORDERED: MENTHOL/PHENOL 1 EACH UD MM PRN (18:50)
[2021-01-01] MEDS ORDERED: IBUPROFEN 400 MG TABLET (FP) PO PRN (18:50)
[2021-01-01] MEDS ORDERED: methaDONE HCL 10 MG TABLET (FOR DETOX USE ONLY) PO ONE (18:54)
[2021-01-01] MEDS ORDERED: cloNIDine HCL 0.1 MG TABLET PO PRN (18:54)
[2021-01-01] MEDS ORDERED: LORazepam 1 MG TABLET PO PRN (18:56)
[2021-01-01] MEDS: METHOCARBAMOL 500 MG TABLET PO PRN (20:05)
[2021-01-01] MEDS: PRENATAL VITAMINS W/ FOLIC ACID TABLET (FP) PO SCH (20:05)
[2021-01-01] MEDS: NICOTINE 21 MG/24 HOURS TOPICAL PATCH TD SCH (20:06)
[2021-01-01] MEDS ORDERED: MASKS NR ONE (20:09)
[2021-01-01] MEDS: hydrOXYzine PAMOATE 25 MG CAPSULE (FP) PO SCH (23:00)
[2021-01-01] MEDS: LORazepam 2 MG TABLET PO SCH (23:00)
[2021-01-01] MEDS: THIAMINE HCL 100 MG TABLET (FP) PO SCH (23:00)
[2021-01-01] MEDS: MAG HYDROX/AL HYDROX/SIMETH 30 ML UNIT-DOSE CUP PO PRN (23:00)
[2021-01-01] MEDS: MELATONIN 5 MG TABLETS PO SCH (23:00)
[2021-01-02] MEDS: hydrOXYzine PAMOATE 25 MG CAPSULE (FP) PO SCH (05:48)
[2021-01-02] MEDS: LORazepam 2 MG TABLET PO SCH ×4 (05:49→22:30)
[2021-01-02] MEDS ORDERED: methaDONE HCL 10 MG TABLET (FOR DETOX USE ONLY) ONE (08:57)
[2021-01-02 10:06] LABS: HEMATOCRIT 41.7 % (32.4-45.2); HEMOGLOBIN 14.1 GM/dL (10.7-15.3); MCH 32.6 pg (25.7-33.7); MCHC 33.9 g/dl (32.0-36.0); MEAN CELL VOLUME 96.1 fl (80-96); MEAN PLT VOLUME 10.1 fl (7.5-11.1); PLATELET COUNT 174 10^3/uL (134-434); RBC 4.34 M/mm3 (3.60-5.2); RDW 13.4 % (11.6-15.6); WHITE BLOOD COUNT 5.8 K/mm3 (4.0-10.0)
[2021-01-02] MEDS: NICOTINE 21 MG/24 HOURS TOPICAL PATCH TD SCH (10:17)
[2021-01-02 10:20] LABS: ALBUMIN 3.9 g/dl (3.4-5.0); BLOOD UREA NITROGEN 13.7 mg/dL (7-18); CALCIUM 9.2 mg/dL (8.5-10.1)
[2021-01-02] MEDS: PRENATAL VITAMINS W/ FOLIC ACID TABLET (FP) PO SCH (10:20)
[2021-01-02] MEDS: hydrOXYzine PAMOATE 50 MG CAPSULE (FP) PO SCH ×4 (10:22→22:31)
[2021-01-02 10:24] LABS: CREATININE 0.7 mg/dL (0.55-1.3)
[2021-01-02 10:25] LABS: BILIRUBIN,TOTAL 1.1 mg/dL (0.2-1)
[2021-01-02 14:38] LABS: HIV INTERPRETATION NEGATIVE (NEGATIVE)
[2021-01-02] MEDS: THIAMINE HCL 100 MG TABLET (FP) PO SCH (22:31)
[2021-01-02] MEDS: traZODone HCL 50 MG TABLET (FP) PO SCH (22:31)
[2021-01-02] MEDS: MELATONIN 5 MG TABLETS PO SCH (22:31)
[2021-01-02] MEDS: METHOCARBAMOL 500 MG TABLET PO PRN (22:31)
[2021-01-03] MEDS: hydrOXYzine PAMOATE 50 MG CAPSULE (FP) PO SCH ×6 (06:05→22:41)
[2021-01-03] MEDS: LORazepam 1 MG TABLET PO SCH ×4 (06:07→22:42)
[2021-01-03] MEDS ORDERED: methaDONE HCL 10 MG TABLET (FOR DETOX USE ONLY) PO ONE (10:00)
[2021-01-03] MEDS: NICOTINE 21 MG/24 HOURS TOPICAL PATCH TD SCH (10:13)
[2021-01-03] MEDS: PRENATAL VITAMINS W/ FOLIC ACID TABLET (FP) PO SCH (10:13)
[2021-01-03] MEDS: THIAMINE HCL 100 MG TABLET (FP) PO SCH (22:41)
[2021-01-03] MEDS: traZODone HCL 50 MG TABLET (FP) PO SCH (22:41)
[2021-01-03] MEDS: MELATONIN 5 MG TABLETS PO SCH (22:42)
[2021-01-04] MEDS ORDERED: LORazepam 0.5 MG TABLET PO PRN
[2021-01-04] MEDS: hydrOXYzine PAMOATE 50 MG CAPSULE (FP) PO SCH ×5 (06:20→22:16)
[2021-01-04] MEDS: LORazepam 0.5 MG TABLET PO SCH ×4 (06:20→22:18)
[2021-01-04] MEDS ORDERED: methaDONE HCL 10 MG TABLET (FOR DETOX USE ONLY) ONE (08:43)
[2021-01-04] MEDS: PRENATAL VITAMINS W/ FOLIC ACID TABLET (FP) PO SCH (10:33)
[2021-01-04] MEDS: NICOTINE 21 MG/24 HOURS TOPICAL PATCH TD SCH (11:07)
[2021-01-04] MEDS ORDERED: NICOTINE 10 MG CARTRIDGE (INHALER) IH PRN (12:13)
[2021-01-04] MEDS: ONDANSETRON *ODT* 4 MG TABLET SL PRN (12:59)
[2021-01-04] MEDS: MAG HYDROX/AL HYDROX/SIMETH 30 ML UNIT-DOSE CUP PO PRN (17:25)
[2021-01-04] MEDS: THIAMINE HCL 100 MG TABLET (FP) PO SCH (22:16)
[2021-01-04] MEDS: traZODone HCL 50 MG TABLET (FP) PO SCH (22:16)
[2021-01-04] MEDS: MELATONIN 5 MG TABLETS PO SCH (22:17)
[2021-01-05] MEDS ORDERED: LORazepam 0.5 MG TABLET PO ONE (05:00)
[2021-01-05] MEDS ORDERED: methaDONE HCL 10 MG TABLET (FOR DETOX USE ONLY) PO ONE ×2 (06:00→10:00)
[2021-01-05] MEDS: hydrOXYzine PAMOATE 50 MG CAPSULE (FP) PO SCH ×2 (06:22→11:01)
[2021-01-05] MEDS: ONDANSETRON *ODT* 4 MG TABLET SL PRN (08:42)
[2021-01-05 09:01] VITALS: BP 123/78; PULSE 106; TEMP 96.8
[2021-01-05] MEDS: PRENATAL VITAMINS W/ FOLIC ACID TABLET (FP) PO SCH (11:01)
[2021-01-05] MEDS: NICOTINE 21 MG/24 HOURS TOPICAL PATCH TD SCH (11:01)
== END 2021-01-05 09:28 | disposition home or self-care (01) | DRG 773 ==
LOC: YASAS 15:39 → Y3N 18:47
PROVIDERS: ADMIT Allergy & Immunology; ATTEND Allergy & Immunology
PROC: HZ2ZZZZ Detoxification Services for Substance Abuse Treatment (ICD-10-PCS; principal; 2021-01-01)
DX: F11.23 Opioid dependence with withdrawal (principal); F10.230 Alcohol dependence with withdrawal, uncomplicated; F14.10 Cocaine abuse, uncomplicated; F12.20 Cannabis dependence, uncomplicated; F16.10 Hallucinogen abuse, uncomplicated; F17.210 Nicotine dependence, cigarettes, uncomplicated; F60.3 Borderline personality disorder; F19.24 Other psychoactive substance dependence with psychoactive substance-induced mood disorder; F19.280 Other psychoactive substance dependence with psychoactive substance-induced anxiety disorder; F19.282 Other psychoactive substance dependence with psychoactive substance-induced sleep disorder; F43.10 Post-traumatic stress disorder, unspecified; F39 Unspecified mood [affective] disorder; G47.00 Insomnia, unspecified; R00.0 Tachycardia, unspecified; Z86.19 Personal history of other infectious and parasitic diseases; Z62.810 Personal history of physical and sexual abuse in childhood; Z56.0 Unemployment, unspecified
CPT/HCPCS: 36415; 80053; 81025; 85027; 86780; 87389; 93005; 93010; C9803; Q0162; U0003; U0005

== ENCOUNTER 2021-03-26 15:58 | Inpatient (IN) | payer OTHER ==
[2021-03-26] MEDS ORDERED: MAG HYDROX/AL HYDROX/SIMETH 30 ML UNIT-DOSE CUP PO PRN (19:17)
[2021-03-26] MEDS ORDERED: IBUPROFEN 400 MG TABLET (FP) PO PRN (19:17)
[2021-03-26] MEDS ORDERED: BISMUTH SUBSALICYLATE 524 MG/30 ML PO PRN (19:17)
[2021-03-26] MEDS ORDERED: MENTHOL/PHENOL 1 EACH UD MM PRN (19:17)
[2021-03-26] MEDS ORDERED: ONDANSETRON *ODT* 4 MG TABLET SL PRN (19:17)
[2021-03-26] MEDS ORDERED: ACETAMINOPHEN 325 MG TABLET (FP) PO PRN ×2 (19:17)
[2021-03-26] MEDS ORDERED: MAGNESIUM HYDROX 2400MG/30ML ORAL SUSPENSION 30 ML CUP PO PRN (19:17)
[2021-03-26] MEDS ORDERED: MAGNESIUM CITRATE 300 ML BOTTLE PO PRN (19:17)
[2021-03-26] MEDS ORDERED: NICOTINE POLACRILEX 4 MG GUM BUC PRN (19:17)
[2021-03-26] MEDS ORDERED: methaDONE HCL 10 MG TABLET (FOR DETOX USE ONLY) PO ONE (19:20)
[2021-03-26 22:31] VITALS: BMI 22.6
[2021-03-26] MEDS ORDERED: methaDONE HCL 10 MG TABLET (FOR DETOX USE ONLY) ONE (22:40)
[2021-03-26] MEDS: THIAMINE HCL 100 MG TABLET (FP) PO SCH (22:43)
[2021-03-26] MEDS: MELATONIN 5 MG TABLETS PO SCH (22:43)
[2021-03-26] MEDS: hydrOXYzine PAMOATE 25 MG CAPSULE (FP) PO PRN (22:43)
[2021-03-26] MEDS: diazePAM 5 MG TABLET PO SCH (22:43)
[2021-03-26] MEDS: METHOCARBAMOL 500 MG TABLET PO PRN (22:45)
[2021-03-27] MEDS: diazePAM 5 MG TABLET PO SCH ×4 (05:37→22:13)
[2021-03-27] MEDS ORDERED: methaDONE HCL 10 MG TABLET (FOR DETOX USE ONLY) PO ONE (10:00)
[2021-03-27] MEDS: PRENATAL VITAMINS W/ FOLIC ACID TABLET (FP) PO SCH (10:20)
[2021-03-27 10:53] LABS: HEMATOCRIT 38.9 % (32.4-45.2); HEMOGLOBIN 13.1 GM/dL (10.7-15.3); MCH 32.7 pg (25.7-33.7); MCHC 33.6 g/dl (32.0-36.0); MEAN CELL VOLUME 97.5 fl (80-96); PLATELET COUNT 189 10^3/uL (134-434); RBC 3.99 M/mm3 (3.60-5.2); RDW 13.5 % (11.6-15.6); WHITE BLOOD COUNT 7.4 K/mm3 (4.0-10.0)
[2021-03-27 11:00] LABS: ALBUMIN 3.1 g/dl (3.4-5.0); CALCIUM 8.6 mg/dL (8.5-10.1)
[2021-03-27 11:05] LABS: BILIRUBIN,TOTAL 0.7 mg/dL (0.2-1); CREATININE 0.7 mg/dL (0.55-1.3); TOT PROT 6.2 g/dl (6.4-8.2)
[2021-03-27] MEDS ORDERED: NICOTINE 10 MG CARTRIDGE (INHALER) IH PRN (11:53)
[2021-03-27 12:28] LABS: HIV INTERPRETATION NEGATIVE (NEGATIVE)
[2021-03-27] MEDS: MELATONIN 5 MG TABLETS PO SCH (22:13)
[2021-03-27] MEDS: THIAMINE HCL 100 MG TABLET (FP) PO SCH (22:13)
[2021-03-27] MEDS: traZODone HCL 50 MG TABLET (FP) PO SCH (22:13)
[2021-03-27] MEDS: METHOCARBAMOL 500 MG TABLET PO PRN (22:14)
[2021-03-27] MEDS: hydrOXYzine PAMOATE 25 MG CAPSULE (FP) PO PRN (22:15)
[2021-03-28] MEDS: diazePAM 5 MG TABLET PO SCH ×3 (06:19→22:53)
[2021-03-28] MEDS ORDERED: methaDONE HCL 10 MG TABLET (FOR DETOX USE ONLY) ONE (09:06)
[2021-03-28] MEDS ORDERED: methaDONE HCL 10 MG TABLET (FOR DETOX USE ONLY) PO ONE (10:00)
[2021-03-28] MEDS: diazePAM 5 MG TABLET PO PRN (10:43)
[2021-03-28] MEDS: PRENATAL VITAMINS W/ FOLIC ACID TABLET (FP) PO SCH (10:55)
[2021-03-28] MEDS: hydrOXYzine PAMOATE 25 MG CAPSULE (FP) PO PRN (22:53)
[2021-03-28] MEDS: THIAMINE HCL 100 MG TABLET (FP) PO SCH (22:53)
[2021-03-28] MEDS: traZODone HCL 50 MG TABLET (FP) PO SCH (22:53)
[2021-03-28] MEDS: MELATONIN 5 MG TABLETS PO SCH (22:53)
[2021-03-28] MEDS: METHOCARBAMOL 500 MG TABLET PO PRN (22:53)
[2021-03-29] MEDS ORDERED: diazePAM 5 MG TABLET PO SCH (06:00)
[2021-03-29] MEDS: METHOCARBAMOL 500 MG TABLET PO PRN (09:31)
[2021-03-29] MEDS: hydrOXYzine PAMOATE 25 MG CAPSULE (FP) PO PRN (09:31)
[2021-03-29] MEDS ORDERED: methaDONE HCL 10 MG TABLET (FOR DETOX USE ONLY) PO ONE (10:00)
[2021-03-29 10:18] VITALS: BP 115/53; PULSE 72; TEMP 98.5
[2021-03-29] MEDS: PRENATAL VITAMINS W/ FOLIC ACID TABLET (FP) PO SCH (11:02)
[2021-03-29] MEDS: diazePAM 5 MG TABLET PO PRN (11:02)
[2021-03-30] MEDS ORDERED: diazePAM 5 MG TABLET PO ONE (06:00)
== END 2021-03-29 16:18 | disposition left against medical advice (07) | DRG 770 ==
LOC: YASAS 15:58 → Y3N 21:15
PROVIDERS: ADMIT Allergy & Immunology; ATTEND Allergy & Immunology
PROC: HZ2ZZZZ Detoxification Services for Substance Abuse Treatment (ICD-10-PCS; principal; 2021-03-26)
DX: F11.23 Opioid dependence with withdrawal (principal); F10.230 Alcohol dependence with withdrawal, uncomplicated; F14.20 Cocaine dependence, uncomplicated; F17.210 Nicotine dependence, cigarettes, uncomplicated; F19.24 Other psychoactive substance dependence with psychoactive substance-induced mood disorder; F43.10 Post-traumatic stress disorder, unspecified; G47.00 Insomnia, unspecified; S10.81XA Abrasion of other specified part of neck, initial encounter; Y04.0XXA Assault by unarmed brawl or fight, initial encounter; Y93.9 Activity, unspecified; Y92.239 Unspecified place in hospital as the place of occurrence of the external cause; Z62.810 Personal history of physical and sexual abuse in childhood; Z91.19 Patient's noncompliance with other medical treatment and regimen; Z87.42 Personal history of other diseases of the female genital tract; Z86.69 Personal history of other diseases of the nervous system and sense organs; Z56.0 Unemployment, unspecified
CPT/HCPCS: 36415; 80053; 85027; 86780; 87389; C9803; U0003; U0005

== ENCOUNTER 2021-08-03 11:56 | Inpatient (IN) | payer OTHER ==
[2021-08-03 14:37] VITALS: BMI 21.6
[2021-08-03] MEDS ORDERED: NICOTINE 10 MG CARTRIDGE (INHALER) IH PRN (15:15)
[2021-08-03] MEDS ORDERED: IBUPROFEN 400 MG TABLET (FP) PO PRN (15:15)
[2021-08-03] MEDS ORDERED: chlordiazePOXIDE HCL 25 MG CAPSULE PO PRN (15:15)
[2021-08-03] MEDS ORDERED: BISMUTH SUBSALICYLATE 524 MG/30 ML PO PRN (15:15)
[2021-08-03] MEDS ORDERED: cloNIDine HCL 0.1 MG TABLET PO PRN (15:15)
[2021-08-03] MEDS ORDERED: ONDANSETRON *ODT* 4 MG TABLET SL PRN (15:15)
[2021-08-03] MEDS ORDERED: MAG HYDROX/AL HYDROX/SIMETH 30 ML UNIT-DOSE CUP PO PRN (15:15)
[2021-08-03] MEDS ORDERED: ACETAMINOPHEN 325 MG TABLET (FP) PO PRN ×2 (15:15)
[2021-08-03] MEDS ORDERED: LOPERAMIDE HCL 2 MG CAPSULE PO PRN (15:15)
[2021-08-03] MEDS ORDERED: MAGNESIUM HYDROX 2400MG/30ML ORAL SUSPENSION 30 ML CUP PO PRN (15:15)
[2021-08-03] MEDS ORDERED: NICOTINE POLACRILEX 2 MG GUM BUC PRN (15:15)
[2021-08-03] MEDS ORDERED: MAGNESIUM CITRATE 300 ML BOTTLE PO PRN (15:15)
[2021-08-03] MEDS ORDERED: MENTHOL/PHENOL 1 EACH UD MM PRN (15:15)
[2021-08-03] MEDS ORDERED: guaiFENesin 200 MG/10 ML 10 ML UNIT-DOSE CUPS PO PRN (15:42)
[2021-08-03] MEDS ORDERED: methaDONE HCL 10 MG TABLET (FOR DETOX USE ONLY) PO ONE (19:00)
[2021-08-03] MEDS ORDERED: methaDONE HCL 10 MG TABLET (FOR DETOX USE ONLY) ONE (19:02)
[2021-08-03] MEDS ORDERED: chlordiazePOXIDE HCL 25 MG CAPSULE ONE (19:02)
[2021-08-03] MEDS ORDERED: hydrOXYzine PAMOATE 25 MG CAPSULE (FP) PO ONE (19:03)
[2021-08-03] MEDS: chlordiazePOXIDE HCL 25 MG CAPSULE PO SCH ×2 (19:07→21:31)
[2021-08-03] MEDS: METHOCARBAMOL 500 MG TABLET PO PRN (19:09)
[2021-08-03] MEDS ORDERED: METHOCARBAMOL 500 MG TABLET ONE (19:11)
[2021-08-03] MEDS: hydrOXYzine PAMOATE 25 MG CAPSULE (FP) PO SCH ×2 (21:31)
[2021-08-03] MEDS: THIAMINE HCL 100 MG TABLET (FP) PO SCH (21:31)
[2021-08-03] MEDS: MELATONIN 5 MG TABLETS PO SCH (21:32)
[2021-08-04] MEDS: chlordiazePOXIDE HCL 25 MG CAPSULE PO SCH ×4 (05:28→22:35)
[2021-08-04] MEDS: hydrOXYzine PAMOATE 25 MG CAPSULE (FP) PO SCH ×5 (05:28→23:00)
[2021-08-04] MEDS ORDERED: methaDONE HCL 10 MG TABLET (FOR DETOX USE ONLY) ONE (08:38)
[2021-08-04] MEDS: PRENATAL VITAMINS W/ FOLIC ACID TABLET (FP) PO SCH (10:35)
[2021-08-04] MEDS: METHOCARBAMOL 500 MG TABLET PO PRN (10:36)
[2021-08-04 12:39] LABS: HEMATOCRIT 35.7 % (32.4-45.2); HEMOGLOBIN 12.3 GM/dL (10.7-15.3); MCH 32.3 pg (25.7-33.7); MCHC 34.4 g/dl (32.0-36.0); MEAN PLT VOLUME 9.5 fl (7.5-11.1); PLATELET COUNT 165 10^3/uL (134-434); RDW 13.7 % (11.6-15.6); WHITE BLOOD COUNT 5.4 K/mm3 (4.0-10.0)
[2021-08-04 12:46] LABS: ALBUMIN 3.3 g/dl (3.4-5.0); BLOOD UREA NITROGEN 12.5 mg/dL (7-18); CALCIUM 8.6 mg/dL (8.5-10.1)
[2021-08-04 12:49] LABS: CREATININE 0.7 mg/dL (0.55-1.3)
[2021-08-04 12:50] LABS: TOT PROT 6.1 g/dl (6.4-8.2)
[2021-08-04 12:51] LABS: BILIRUBIN,TOTAL 0.6 mg/dL (0.2-1)
[2021-08-04 14:06] LABS: SARS-CoV-2 NAA Not Detected (Not Detected)
[2021-08-04] MEDS: traZODone HCL 50 MG TABLET (FP) PO SCH (22:35)
[2021-08-04] MEDS: THIAMINE HCL 100 MG TABLET (FP) PO SCH (22:35)
[2021-08-04] MEDS: MELATONIN 5 MG TABLETS PO SCH (22:40)
[2021-08-05] MEDS: hydrOXYzine PAMOATE 25 MG CAPSULE (FP) PO SCH ×4 (05:50→23:39)
[2021-08-05] MEDS: chlordiazePOXIDE HCL 25 MG CAPSULE PO SCH ×4 (05:51→22:33)
[2021-08-05] MEDS ORDERED: methaDONE HCL 10 MG TABLET (FOR DETOX USE ONLY) PO ONE (10:00)
[2021-08-05] MEDS: PRENATAL VITAMINS W/ FOLIC ACID TABLET (FP) PO SCH (10:30)
[2021-08-05] MEDS: METHOCARBAMOL 500 MG TABLET PO PRN (10:31)
[2021-08-05 16:07] LABS: SARS-CoV-2 NAA Not Detected (Not Detected)
[2021-08-05 17:24] LABS: HIV INTERPRETATION NEGATIVE (NEGATIVE)
[2021-08-05] MEDS: traZODone HCL 50 MG TABLET (FP) PO SCH (22:33)
[2021-08-05] MEDS: MELATONIN 5 MG TABLETS PO SCH (22:33)
[2021-08-05] MEDS: THIAMINE HCL 100 MG TABLET (FP) PO SCH (22:33)
[2021-08-06] MEDS ORDERED: chlordiazePOXIDE HCL 10 MG CAPSULE PO PRN
[2021-08-06] MEDS: chlordiazePOXIDE HCL 10 MG CAPSULE PO SCH ×4 (06:01→22:34)
[2021-08-06] MEDS: hydrOXYzine PAMOATE 25 MG CAPSULE (FP) PO SCH ×3 (06:01→18:32)
[2021-08-06] MEDS ORDERED: methaDONE HCL 10 MG TABLET (FOR DETOX USE ONLY) ONE (09:36)
[2021-08-06] MEDS: METHOCARBAMOL 500 MG TABLET PO PRN (10:36)
[2021-08-06] MEDS: PRENATAL VITAMINS W/ FOLIC ACID TABLET (FP) PO SCH (10:36)
[2021-08-06 16:26] LABS: EPI CELLS >36 /uL (0-25.1); HYALINE CASTS 2 /uL (0-3.1); URINE APPEARANCE CLOUDY; URINE BACTERIA 2296 /uL (0-1359); URINE BILIRUBIN NEGATIVE (NEGATIVE); URINE COLOR YELLOW; URINE GLUCOSE (UA) NEGATIVE (NEGATIVE); URINE KETONE NEGATIVE (NEGATIVE); URINE LEUK ESTERASE 3+ (NEGATIVE); URINE NITRITE NEGATIVE (NEGATIVE); URINE PROTEIN TRACE (NEGATIVE); URINE RBC 15 /uL (0-23.9); URINE UROBILINOGEN 0.2 mg/dL (0.2-1.0); URINE WBC 1227 /uL (0-25.8)
[2021-08-06] MEDS: traZODone HCL 50 MG TABLET (FP) PO SCH (22:34)
[2021-08-06] MEDS: THIAMINE HCL 100 MG TABLET (FP) PO SCH (22:34)
[2021-08-06] MEDS: MELATONIN 5 MG TABLETS PO SCH (22:34)
[2021-08-07] MEDS: hydrOXYzine PAMOATE 25 MG CAPSULE (FP) PO SCH ×2 (01:29→05:32)
[2021-08-07] MEDS ORDERED: chlordiazePOXIDE HCL 10 MG CAPSULE PO SCH (05:00)
[2021-08-07 09:16] VITALS: BP 93/47; PULSE 72; TEMP 97.1
[2021-08-07] MEDS ORDERED: methaDONE HCL 10 MG TABLET (FOR DETOX USE ONLY) PO ONE (10:00)
[2021-08-08] MEDS ORDERED: chlordiazePOXIDE HCL 10 MG CAPSULE PO ONE (05:00)
== END 2021-08-07 10:12 | disposition left against medical advice (07) | DRG 770 ==
LOC: YASAS 11:56 → Y6N 17:57 → UNDOADMIN 17:57 → Y6N 19:34
PROVIDERS: ADMIT Allergy & Immunology; ATTEND Allergy & Immunology
PROC: HZ2ZZZZ Detoxification Services for Substance Abuse Treatment (ICD-10-PCS; principal; 2021-08-03)
DX: F11.23 Opioid dependence with withdrawal (principal); F10.230 Alcohol dependence with withdrawal, uncomplicated; F14.20 Cocaine dependence, uncomplicated; F12.20 Cannabis dependence, uncomplicated; F17.210 Nicotine dependence, cigarettes, uncomplicated; F19.24 Other psychoactive substance dependence with psychoactive substance-induced mood disorder; F19.282 Other psychoactive substance dependence with psychoactive substance-induced sleep disorder; F43.10 Post-traumatic stress disorder, unspecified; F41.9 Anxiety disorder, unspecified; G47.00 Insomnia, unspecified; R63.4 Abnormal weight loss; Z87.42 Personal history of other diseases of the female genital tract; Z62.810 Personal history of physical and sexual abuse in childhood; Z86.69 Personal history of other diseases of the nervous system and sense organs; Z56.0 Unemployment, unspecified
CPT/HCPCS: 36415; 80053; 81003; 81025; 85027; 86780; 87389; C9803; U0003; U0005

== ENCOUNTER 2021-10-01 12:07 | Inpatient (IN) | payer OTHER ==
[2021-10-01] MEDS ORDERED: MAGNESIUM HYDROX 2400MG/30ML ORAL SUSPENSION 30 ML CUP PO PRN (12:49)
[2021-10-01] MEDS ORDERED: DICYCLOMINE HCL 10 MG CAPSULE PO PRN (12:49)
[2021-10-01] MEDS ORDERED: NICOTINE POLACRILEX 4 MG GUM BUC PRN (12:49)
[2021-10-01] MEDS ORDERED: ONDANSETRON *ODT* 4 MG TABLET SL PRN (12:49)
[2021-10-01] MEDS ORDERED: ACETAMINOPHEN 325 MG TABLET (FP) PO PRN (12:49)
[2021-10-01] MEDS ORDERED: MAG HYDROX/AL HYDROX/SIMETH 30 ML UNIT-DOSE CUP PO PRN (12:49)
[2021-10-01] MEDS ORDERED: BISMUTH SUBSALICYLATE 524 MG/30 ML PO PRN (12:49)
[2021-10-01] MEDS ORDERED: NICOTINE 10 MG CARTRIDGE (INHALER) IH PRN (12:49)
[2021-10-01] MEDS ORDERED: chlordiazePOXIDE HCL 25 MG CAPSULE PO PRN (12:49)
[2021-10-01] MEDS ORDERED: cloNIDine HCL 0.1 MG TABLET PO PRN (12:49)
[2021-10-01] MEDS ORDERED: BENZOCAINE/MENTHOL (CHLORASEPTIC ) LOZENGE MM PRN (12:49)
[2021-10-01] MEDS ORDERED: LOPERAMIDE HCL 2 MG CAPSULE PO PRN (12:49)
[2021-10-01] MEDS ORDERED: IBUPROFEN 400 MG TABLET (FP) PO PRN (12:49)
[2021-10-01] MEDS ORDERED: MAGNESIUM CITRATE 300 ML BOTTLE PO PRN (12:49)
[2021-10-01 13:12] VITALS: BMI 20.2
[2021-10-01] MEDS ORDERED: methaDONE HCL 10 MG TABLET (FOR DETOX USE ONLY) PO ONE (14:00)
[2021-10-01] MEDS: hydrOXYzine PAMOATE 25 MG CAPSULE (FP) PO SCH ×3 (14:35→22:24)
[2021-10-01] MEDS: PRENATAL VITAMINS W/ FOLIC ACID TABLET (FP) PO SCH (14:41)
[2021-10-01 16:58] LABS: HEMATOCRIT 38.5 % (32.4-45.2); HEMOGLOBIN 12.8 GM/dL (10.7-15.3); MCH 31.2 pg (25.7-33.7); MCHC 33.3 g/dl (32.0-36.0); MEAN CELL VOLUME 93.9 fl (80-96); PLATELET COUNT 161 10^3/uL (134-434); RDW 13.4 % (11.6-15.6); WHITE BLOOD COUNT 7.9 K/mm3 (4.0-10.0)
[2021-10-01 17:01] LABS: ALBUMIN 3.7 g/dl (3.4-5.0); BLOOD UREA NITROGEN 15.8 mg/dL (7-18); CALCIUM 8.8 mg/dL (8.5-10.1)
[2021-10-01 17:03] LABS: CREATININE 0.8 mg/dL (0.55-1.3)
[2021-10-01 17:06] LABS: BILIRUBIN,TOTAL 0.6 mg/dL (0.2-1); TOT PROT 6.6 g/dl (6.4-8.2)
[2021-10-01] MEDS: chlordiazePOXIDE HCL 25 MG CAPSULE PO SCH ×2 (19:37→22:24)
[2021-10-01] MEDS: METHOCARBAMOL 500 MG TABLET PO PRN (19:39)
[2021-10-01] MEDS: MELATONIN 5 MG TABLETS PO SCH (22:24)
[2021-10-01] MEDS: THIAMINE HCL 100 MG TABLET (FP) PO SCH (22:24)
[2021-10-01] MEDS: ACETAMINOPHEN 325 MG TABLET (FP) PO PRN (22:25)
[2021-10-02] MEDS: chlordiazePOXIDE HCL 25 MG CAPSULE PO SCH ×4 (06:20→22:19)
[2021-10-02] MEDS: hydrOXYzine PAMOATE 25 MG CAPSULE (FP) PO SCH ×5 (06:21→22:19)
[2021-10-02] MEDS ORDERED: methaDONE HCL 10 MG TABLET (FOR DETOX USE ONLY) ONE (09:37)
[2021-10-02] MEDS: PRENATAL VITAMINS W/ FOLIC ACID TABLET (FP) PO SCH (10:31)
[2021-10-02] MEDS: ACETAMINOPHEN 325 MG TABLET (FP) PO PRN (17:50)
[2021-10-02] MEDS: METHOCARBAMOL 500 MG TABLET PO PRN (22:19)
[2021-10-02] MEDS: MELATONIN 5 MG TABLETS PO SCH (22:19)
[2021-10-02] MEDS: THIAMINE HCL 100 MG TABLET (FP) PO SCH (22:19)
[2021-10-03] MEDS: hydrOXYzine PAMOATE 25 MG CAPSULE (FP) PO SCH ×3 (06:30→15:02)
[2021-10-03] MEDS: chlordiazePOXIDE HCL 25 MG CAPSULE PO SCH ×2 (06:31→10:17)
[2021-10-03 08:44] VITALS: TEMP 97.5
[2021-10-03] MEDS ORDERED: methaDONE HCL 10 MG TABLET (FOR DETOX USE ONLY) PO ONE (10:00)
[2021-10-03] MEDS: PRENATAL VITAMINS W/ FOLIC ACID TABLET (FP) PO SCH (10:17)
[2021-10-03 13:04] VITALS: BP 95/61; PULSE 60
[2021-10-03 14:12] LABS: SARS-CoV-2 NAA Not Detected (Not Detected)
[2021-10-04] MEDS ORDERED: chlordiazePOXIDE HCL 10 MG CAPSULE PO PRN
[2021-10-04] MEDS ORDERED: chlordiazePOXIDE HCL 10 MG CAPSULE PO SCH (05:00)
[2021-10-05] MEDS ORDERED: chlordiazePOXIDE HCL 10 MG CAPSULE PO SCH (05:00)
[2021-10-05] MEDS ORDERED: methaDONE HCL 10 MG TABLET (FOR DETOX USE ONLY) PO ONE (10:00)
[2021-10-06] MEDS ORDERED: chlordiazePOXIDE HCL 10 MG CAPSULE PO ONE (05:00)
== END 2021-10-03 17:55 | disposition left against medical advice (07) | DRG 770 ==
LOC: YASAS 12:07 → Y3N 13:42
PROVIDERS: ADMIT Allergy & Immunology; ATTEND Allergy & Immunology
PROC: HZ2ZZZZ Detoxification Services for Substance Abuse Treatment (ICD-10-PCS; principal; 2021-10-01)
DX: F11.23 Opioid dependence with withdrawal (principal); F10.230 Alcohol dependence with withdrawal, uncomplicated; F14.20 Cocaine dependence, uncomplicated; F16.10 Hallucinogen abuse, uncomplicated; F17.210 Nicotine dependence, cigarettes, uncomplicated; F19.24 Other psychoactive substance dependence with psychoactive substance-induced mood disorder; F41.9 Anxiety disorder, unspecified; F32.A Depression, unspecified; K21.9 Gastro-esophageal reflux disease without esophagitis; M17.11 Unilateral primary osteoarthritis, right knee; Z62.810 Personal history of physical and sexual abuse in childhood; Z91.410 Personal history of adult physical and sexual abuse; Z91.51 Personal history of suicidal behavior; Z86.69 Personal history of other diseases of the nervous system and sense organs; Z87.42 Personal history of other diseases of the female genital tract; Z28.310 Unvaccinated for COVID-19
CPT/HCPCS: 36415; 80053; 81025; 85027; 86780; C9803-CS; U0003; U0005